=== PATIENT | female | born 1990 | race Caucasian/White ===

== ENCOUNTER 2016-05-24 10:26 | Emergency (ER) | payer MEDICAID ==
[2016-05-24] MEDS ORDERED: DEXAMETHASONE 10 MG/ML VIAL PO STA (11:47)
[2016-05-24] MEDS ORDERED: DEXAMETHASONE 10 MG/ML VIAL ONE (11:47)
[2016-05-24] MEDS ORDERED: CHERRY SYRUP 10 ML UDC PO ONE (11:48)
== END 2016-05-24 11:54 | disposition home or self-care (01) ==
DX: K04.7 Periapical abscess without sinus (principal); L50.9 Urticaria, unspecified; D66 Hereditary factor VIII deficiency; J45.909 Unspecified asthma, uncomplicated; F17.200 Nicotine dependence, unspecified, uncomplicated
CPT/HCPCS: 99283; A9270

== ENCOUNTER 2016-06-01 | Emergency (ER) | payer MEDICAID ==
--- NOTE | 2016-06-01 11:17 | ED Physician Documentation ---
PD HPI HEENT - Stated complaint Stated Complaint: ALLERGIC RX/TO MED - Chief complaint Chief Complaint: Heent - History obtained from History obtained from: Patient - History of Present Illness Timing - details: Gradual onset, Waxing and waning (she had had some itching rash on chest but it worsened with recent Doxycycline so stopped it after 3 days. It was for dental infection, which improved some but is back again with swelling and pain. Went to [facility] today presuming would get extraction, but they wanted her on abx more. 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 some itchy rash on chest.) Recently seen: Emergency Dept (recent Rx for Doxycycline. Had slight rash, so only took it for 3 days. Swelling and pain worsening again. Went to [facility] and they want her on abx more before doing anything.) Review of Systems Constitutional: denies: Fever Nose: denies: Rhinorrhea / runny nose, Congestion Throat: reports: Dental pain / toothache. 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 - Present Medications Home Medications: Ambulatory Orders Medication Instructions Recorded Confirmed Albuterol [Albuterol] 1 puffs INH BID 11/26/15 01/06/16 Antihemoph.fviii,Hek B-Delete 2,000 units SQ PRN 01/29/16 [Nuwiq] Doxycycline Hyclate 100 mg PO BID #20 tablet 05/24/16 Dexamethasone [Decadron] 4 mg PO DAILY #5 tablet 06/01/16 Hydrocodone/Acetaminophen [[place] 1 each PO Q6H PRN #20 tablet 06/01/16 5-325 Tablet] Sulfamethoxazole/Trimethoprim 1 each PO BID #14 tablet 06/01/16 [Bactrim Ds Tablet] - Allergies Allergies/Adverse Reactions: Allergies Allergy/AdvReac Type Severity Reaction Status Date / Time amoxicillin [Amoxicillin] Allergy Rash Verified 12/10/15 10:09 benzocaine Allergy Anaphylaxis Verified 12/10/15 10:09 cefaclor [From Ceclor] Allergy Rash Verified 12/10/15 10:09 cephalexin monohydrate * Allergy Rash Verified 12/10/15 10:09 [From Keflex] clindamycin Allergy Rash Verified 12/10/15 10:09 codeine [Codeine] Allergy Rash Verified 12/10/15 10:09 doxycycline Allergy Rash Verified 06/01/16 10:58 ibuprofen Allergy Rash Verified 12/10/15 10:09 morphine Allergy Rash Verified 12/10/15 10:09 NSAIDS (Non-Steroidal Allergy Unknown Verified 12/10/15 10:09 Anti-Inflamma Penicillins Allergy Rash Verified 12/10/15 10:09 tramadol AdvReac Unknown Verified 12/10/15 10:09 - Social History Does the pt smoke?: Yes Smoking Status: Current every day smoker Does the pt drink ETOH?: No Does the pt have substance abuse?: No - Immunizations Immunizations are current?: Yes - POLST Patient has POLST: No PD ED PE NORMAL - Vitals Vital signs reviewed: Yes - General General: Alert and oriented X 3, No acute distress, Well developed/nourished - HEENT HEENT: Moist mucous membranes, Pharynx benign, Other (left lower first molar with erosion to gumline, redness and some swelling but no fluctuance buccal side. Lingual side is normal. ) - Neck Neck: Supple, no meningeal sign, No adenopathy - Cardiac Cardiac: RRR, No murmur - Respiratory Respiratory: Clear bilaterally Results - Vitals Vitals: Vital Signs - 24 hr 06/01/16 10:54 Temperature 37.2 C Heart Rate 113 H Respiratory 18 Rate Blood Pressure 132/70 H O2 Saturation 98 Oxygen O2 Source Room air PD MEDICAL DECISION MAKING - ED course Complexity details: considered differential (still with dental pain and some swelling. Went to [facility] today and they want her on abx more as still seems infected. She had had some itching rash of chest prior to meds but then got worse when started Doxy most recent Rx so only took 3 days of it. Out of pain meds too. She had taken dose of Factor 8 this morning in prep for having dental extraction. ), d/w patient Departure - Departure Disposition: 01 Home, Self Care Clinical Impression: Dental abscess Condition: Stable Record reviewed to determine appropriate education?: Yes Instructions: ED Tooth Pain Follow-Up: [facility] [Provider Group] [facility] [Provider Group] Prescriptions: Sulfamethoxazole/Trimethoprim [Bactrim Ds Tablet] 1 each PO BID #14 tablet Dexamethasone [Decadron] 4 mg PO DAILY #5 tablet Hydrocodone/Acetaminophen [[place] 5-325 Tablet] 1 each PO Q6H PRN #20 tablet PRN Reason: Pain Comments: [phone] Dental Clinic, or [facility] clinic regarding dental extraction. Otherwise can look up oral surgeons in [facility] or such to see if they would cover it with your insurance. Bactrim antibiotic for the infection. Tylenol for pain. Hydrocodone for worse pain. Can try Decadron steroid for swelling. Discharge Date/Time: 06/01/16 11:44
== END 2016-06-01 11:44 | disposition home or self-care (01) ==
CPT/HCPCS: 99283

== ENCOUNTER 2016-07-14 21:06 | Emergency (ER) | payer MEDICAID ==
[2016-07-14] MEDS ORDERED: SODIUM CHLORIDE 0.9% 1,000 ML IV ONE (21:15)
[2016-07-15] MEDS ORDERED: HYDROcod/ACET 5/325 Prepack 6 PO STA (00:34)
[2016-07-15] MEDS ORDERED: ONDANSETRON 4 MG/2 ML VIAL IVP STA (00:34)
[2016-07-15] MEDS ORDERED: MORPHINE 2 MG/ML SYRINGE IVP STA (00:34)
[2016-07-15] MEDS ORDERED: ONDANSETRON ODT 4 MG Prepack 2 TL STA (00:35)
[2016-07-15] MEDS ORDERED: ONDANSETRON 4 MG/2 ML VIAL ONE (00:46)
[2016-07-15] MEDS ORDERED: HYDROcod/ACET 5/325 Prepack 6 PO ONE (00:47)
[2016-07-15] MEDS ORDERED: MORPHINE 2 MG/ML SYRINGE ONE (00:47)
[2016-07-15] MEDS ORDERED: ONDANSETRON ODT 4 MG Prepack 2 TL ONE (00:47)
== END 2016-07-15 01:12 | disposition home or self-care (01) ==
DX: O03.6 Delayed or excessive hemorrhage following complete or unspecified spontaneous abortion (principal); R10.2 Pelvic and perineal pain

== ENCOUNTER 2016-08-11 19:47 | Emergency (ER) | payer MEDICAID ==
[2016-08-11] MEDS ORDERED: MORPHINE 2 MG/ML SYRINGE ONE (21:16)
[2016-08-11] MEDS ORDERED: MORPHINE 2 MG/ML SYRINGE IVP STA (21:25)
[2016-08-11] MEDS ORDERED: ACETAMINOPHEN 325 MG TABLET PO STA (22:17)
== END 2016-08-11 22:25 | disposition left against medical advice (07) ==
DX: N93.9 Abnormal uterine and vaginal bleeding, unspecified (principal); D66 Hereditary factor VIII deficiency; D25.1 Intramural leiomyoma of uterus; J45.909 Unspecified asthma, uncomplicated; F17.200 Nicotine dependence, unspecified, uncomplicated; Z79.51 Long term (current) use of inhaled steroids; Z79.52 Long term (current) use of systemic steroids; Z79.891 Long term (current) use of opiate analgesic; Z79.2 Long term (current) use of antibiotics; Z79.899 Other long term (current) drug therapy; Z87.59 Personal history of other complications of pregnancy, childbirth and the puerperium

== ENCOUNTER 2017-04-23 19:15 | Emergency (ER) | payer MEDICAID ==
[2017-04-23] MEDS ORDERED: SODIUM CHLORIDE 0.9% 1,000 ML IV ONE (19:38)
[2017-04-23] MEDS ORDERED: ONDANSETRON 4 MG/2 ML VIAL IVP STA (19:38)
[2017-04-23] MEDS ORDERED: HYDROmorphone 1 MG/ML SYRINGE IVP STA (19:38)
--- NOTE | 2017-04-23 19:42 | ED Physician Documentation ---
PD HPI NVD - Stated complaint Stated Complaint: VOMITING - Chief complaint Chief Complaint: Abd Pain - History obtained from History obtained from: Patient - History of Present Illness Timing - onset: Other (Her whole family has been sick with vomiting and diarrheal illness. She became sick about a week ago and has had persistent vomiting and diarrhea ever since with right lower chest pain and coughing as well. She is on her menses. She says she has not been able to keep down anything in the last week even water.) Review of Systems Ten Systems: 10 systems reviewed and negative Constitutional: reports: Chills, Fatigue. denies: Fever Throat: denies: Sore throat Respiratory: reports: Dyspnea, Cough. denies: Wheezing GI: reports: Nausea, Vomiting, Diarrhea. 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 - Present Medications Home Medications: Ambulatory Orders Medication Instructions Recorded Confirmed Albuterol [Albuterol] 1 puffs INH BID 11/26/15 04/23/17 Divalproex ER [Depakote ER] 250 mg PO BID 04/23/17 04/23/17 Loperamide [Imodium] 2 mg PO QID PRN #10 capsule 04/23/17 Ondansetron HCl [Zofran] 4 mg PO Q6H PRN #10 tablet 04/23/17 - Allergies Allergies/Adverse Reactions: Allergies Allergy/AdvReac Type Severity Reaction Status Date / Time amoxicillin [Amoxicillin] Allergy Rash Verified 12/10/15 10:09 benzocaine Allergy Anaphylaxis Verified 12/10/15 10:09 cefaclor [From Ceclor] Allergy Rash Verified 12/10/15 10:09 cephalexin monohydrate * Allergy Rash Verified 12/10/15 10:09 [From Keflex] clindamycin Allergy Rash Verified 12/10/15 10:09 codeine [Codeine] Allergy Rash Verified 12/10/15 10:09 doxycycline Allergy Rash Verified 06/01/16 10:58 ibuprofen Allergy Rash Verified 12/10/15 10:09 morphine Allergy Rash Verified 12/10/15 10:09 NSAIDS (Non-Steroidal Allergy Unknown Verified 12/10/15 10:09 Anti-Inflamma Penicillins Allergy Rash Verified 12/10/15 10:09 tramadol AdvReac Unknown Verified 12/10/15 10:09 - Social History Does the pt smoke?: Yes Smoking Status: Current every day smoker Does the pt drink ETOH?: No Does the pt have substance abuse?: No - Immunizations Immunizations are current?: Yes - POLST Patient has POLST: No PD ED PE NORMAL - Vitals Vital signs reviewed: Yes - General General: Alert and oriented X 3, No acute distress - HEENT HEENT: PERRL, EOMI, Ears normal, Moist mucous membranes - Neck Neck: Supple, no meningeal sign, No bony TTP - Cardiac Cardiac: RRR (Tachycardic), No murmur - Respiratory Respiratory: No respiratory distress, Other (Crackles at the right base) - Abdomen Abdomen: Soft, Non tender - Back Back: No CVA TTP, No spinal TTP - Derm Derm: Normal color, Warm and dry - Extremities Extremities: No edema, No calf tenderness / cord - Neuro Neuro: Alert and oriented X 3, Normal speech - Psych Psych: Normal mood, Normal affect Results - Vitals Vitals: Vital Signs - 24 hr 04/23/17 19:26 Temperature 36.7 C Heart Rate 108 H Respiratory 18 Rate Blood Pressure 122/87 H O2 Saturation 99 Oxygen O2 Source Room air - Labs Labs: Laboratory Tests 04/23/17 04/23/17 04/23/17 19:39 19:43 19:43 WBC 3.5 L RBC 5.36 Hgb 16.1 H Hct 47.6 H MCV 88.8 MCH 30.1 MCHC 33.9 RDW 13.5 Plt Count 140 MPV 7.7 L Neut # Not Reportable Lymph # Not Reportable [place] # Not Reportable Eos # Not Reportable Baso # Not Reportable Absolute Nucleated RBC Not Reportable Total Counted 100 Band Neuts % (Manual) 3 Reactive Lymphs % (Man) 19 Abnorm Lymph % (Manual) 0 Nucleated RBC % Not Reportable Neutrophils # (Manual) 1.5 Lymphocytes # (Manual) 2.0 Monocytes # (Manual) 0.0 Eosinophils # (Manual) 0.0 Basophils # (Manual) 0.0 Differential Comment MANUAL DIFFERENTIAL Manual Slide Review Indicated Platelet Estimate NORMAL (130-450,000) Platelet Morphology NORMAL APPEARANCE RBC Morph Micro Appear NORMAL APPEARANCE Sodium 138 Potassium 4.2 Chloride 97 L Carbon Dioxide 26 Anion Gap 15.0 H BUN 14 Creatinine 0.7 Estimated GFR (MDRD) 100 Glucose 96 Calcium 9.1 Total Bilirubin 0.6 AST 67 H ALT 64 H Alkaline Phosphatase 45 Total Protein 8.3 H Albumin 4.9 Globulin 3.4 Albumin/Globulin Ratio 1.4 Lipase 19 L Urine Color YELLOW Urine Clarity CLEAR Urine pH 6.0 Ur Specific [place] >=1.030 H Urine Protein 30 H Urine Glucose (UA) NEGATIVE Urine Ketones 40 H Urine Occult Blood NEGATIVE Urine Nitrite NEGATIVE Urine Bilirubin NEGATIVE Urine Urobilinogen 0.2 (NORMAL) Ur Leukocyte Esterase NEGATIVE Urine RBC None Seen Urine WBC 0-3 Ur Squamous Epith Cells FEW Squamous Urine Bacteria None Seen Urine Casts 0-2 Hyaline Casts Urine Mucus Marked Strands Ur Microscopic Review INDICATED Urine Culture Comments NOT INDICATED Urine HCG, Qual NEGATIVE Last Dose Date UNKNOWN Last Dose Time UNKNOWN Valproic Acid 58.3 Infectious [place] Assay 04/23/17 19:43 WBC RBC Hgb Hct MCV MCH MCHC RDW Plt Count MPV Neut # Lymph # [place] # Eos # Baso # Absolute Nucleated RBC Total Counted Band Neuts % (Manual) Reactive Lymphs % (Man) Abnorm Lymph % (Manual) Nucleated RBC % Neutrophils # (Manual) Lymphocytes # (Manual) Monocytes # (Manual) Eosinophils # (Manual) Basophils # (Manual) Differential Comment Manual Slide Review Platelet Estimate Platelet Morphology RBC Morph Micro Appear Sodium Potassium Chloride Carbon Dioxide Anion Gap BUN Creatinine Estimated GFR (MDRD) Glucose Calcium Total Bilirubin AST ALT Alkaline Phosphatase Total Protein Albumin Globulin Albumin/Globulin Ratio Lipase Urine Color Urine Clarity Urine pH Ur Specific [place] Urine Protein Urine Glucose (UA) Urine Ketones Urine Occult Blood Urine Nitrite Urine Bilirubin Urine Urobilinogen Ur Leukocyte Esterase Urine RBC Urine WBC Ur Squamous Epith Cells Urine Bacteria Urine Casts Urine Mucus Ur Microscopic Review Urine Culture Comments Urine HCG, Qual Last Dose Date Last Dose Time Valproic Acid Infectious [place] Assay NEGATIVE PD MEDICAL DECISION MAKING - ED course ED course: 18-year-old woman with vomiting, diarrhea, seems like a viral illness and the leukopenia combined with reactive lymphocytes suggest the same, she was mono negative though. She improved well with symptomatic treatment here including IV fluids, antiemetics and pain medication. She passed an oral challenge and remained well-appearing. Despite the abnormal examination her chest x-ray was negative and given the overall viral appearance this will be treated conservatively. Departure - Departure Disposition: 01 Home, Self Care Clinical Impression: Gastroenteritis, Viral syndrome Condition: Good Record reviewed to determine appropriate education?: Yes Instructions: ED Gastroenteritis Viral Prescriptions: Loperamide [Imodium] 2 mg PO QID PRN #10 capsule PRN Reason: Diarrhea Ondansetron HCl [Zofran] 4 mg PO Q6H PRN #10 tablet PRN Reason: Nausea / Vomiting Comments: Call your doctor to arrange a follow-up appointment, make the next available appointment. In the interim, return anytime if worse or if new symptoms develop. Your blood pressure was elevated today on check into the emergency department. This does not mean that you have hypertension, it is a common phenomenon to come to the emergency department and have elevated blood pressure. I recommend that you see your primary care physician within the week to have it rechecked when you are feeling better.
[2017-04-23 19:49] LABS: BASOPHILS % (AUTO) 0.6 %; EOSINOPHILS % (AUTO) 0.1 %; HGB - HEMOGLOBIN 16.1 g/dL (12.0-16.0); LYMPHOCYTES % (AUTO) 44.1 %; MEAN CORPUSCULAR HEMOGLOBIN 30.1 pg (27.0-31.0); MEAN CORPUSCULAR HGB CONC 33.9 g/dL (32.0-36.0); MEAN CORPUSCULAR VOLUME 88.8 fL (81.0-99.0); MEAN PLATELET VOLUME 7.7 fL (7.9-10.8); MONOCYTES % (AUTO) 14.4 %; NEUTROPHILS % (AUTO) 40.8 %; PLT - PLATELET COUNT 140 10^3/uL (130-450); RED BLOOD COUNT 5.36 10^6/uL (4.20-5.40); RED CELL DISTRIBUTION WIDTH 13.5 % (12.0-15.0); WHITE BLOOD COUNT 3.5 x10^3/uL (4.8-10.8)
[2017-04-23 20:00] LABS: ABNORMAL LYMPHS % (MANUAL) 0 %
[2017-04-23 20:03] LABS: ALBUMIN 4.9 g/dL (3.2-5.5); ALBUMIN/GLOBULIN RATIO 1.4 (1.0-2.2); ALKALINE PHOSPHATASE 45 IU/L (42-121); ALT ALANINE AMINOTRANSFERASE 64 IU/L (10-60); AST ASPARTATE AMINOTRANSFERASE 67 IU/L (10-42); BILIRUBIN,TOTAL 0.6 mg/dL (0.2-1.0); BUN - BLOOD UREA NITROGEN 14 mg/dL (6-20); CALCIUM 9.1 mg/dL (8.5-10.3); CARBON DIOXIDE - CO2 26 mmol/L (21-32); CHLORIDE 97 mmol/L (101-111); CREATININE 0.7 mg/dL (0.4-1.0); GFR - MDRD 100 (>89); GLUCOSE 96 mg/dL (70-100); LIPASE 19 U/L (22-51); SODIUM 138 mmol/L (135-145); TOTAL PROTEIN 8.3 g/dL (6.7-8.2); VALPROIC ACID (DEPAKOTE) 58.3 ug/mL
[2017-04-23 20:04] LABS: BILIRUBIN,URINE NEGATIVE (NEGATIVE); GLUCOSE, URINE (UA) NEGATIVE (NEGATIVE); KETONES,URINE (UA) 40 mg/dL (NEGATIVE); LEUKOCYTE ESTERASE, URINE NEGATIVE (NEGATIVE); NITRITE,URINE NEGATIVE (NEGATIVE); OCCULT BLOOD,URINE NEGATIVE (NEGATIVE); PROTEIN,URINE 30 mg/dL (NEGATIVE); UROBILINOGEN,URINE 0.2 (NORMAL) E.U./dL (NORMAL)
[2017-04-23 20:05] LABS: CLARITY,URINE CLEAR (CLEAR)
[2017-04-23 20:06] LABS: HCG UR QUAL NEGATIVE
[2017-04-23 20:14] LABS: BACTERIA,URINE None Seen /HPF (None Seen); CASTS, URINE 0-2 Hyaline Casts /LPF; MUCUS,URINE Marked Strands; RBC,URINE None Seen /HPF (0-5); SQUAMOUS EPITHELIAL CELL,UR FEW Squamous (<= Few)
--- NOTE | 2017-04-23 20:16 | XRAY Report ---
EXAM: CHEST RADIOGRAPHY EXAM DATE: 04/23/2017 08:07 PM. CLINICAL HISTORY: Cough. Abnormal breath sounds right middle lobe. COMPARISON: 10/24/2013. TECHNIQUE: 2 views. FINDINGS: Lungs/Pleura: Normal volumes. Stable 4 mm calcified granuloma in the right middle lobe. No focal cons olidation or evidence of edema. No pleural effusion or pneumothorax. Mediastinum: Normal cardiomediastinal contour. Other: Unchanged minimal left convex curvature of the midthoracic spine. IMPRESSION: No acute cardiopulmonary abnormality. [facility] Referring Provider Line: [phone] SITE ID: [id number]
[2017-04-23 20:27] LABS: BAND NEUTROPHILS % (MANUAL) 3 %; DIFFERENTIAL COMMENT MANUAL DIFFERENTIAL; LYMPHOCYTES % (MANUAL) 38 %; NEUTROPHILS # (MANUAL) 1.5 10^3/uL (1.5-6.6); NEUTROPHILS % (MANUAL) 40 %; PLATELET ESTIMATE, MANUAL NORMAL (130-450,000) (NORMAL); PLATELET MORPHOLOGY NORMAL APPEARANCE (NORMAL); RBC MORPHOLOGY (MULTIPLE) NORMAL APPEARANCE (NORMAL)
[2017-04-23] MEDS ORDERED: DIVALPROEX ER 250 MG TABLET PO STA (20:28)
[2017-04-23] MEDS ORDERED: HYDROcod/ACET 5/325 Prepack 6 PO STA (21:18)
[2017-04-23] MEDS ORDERED: ONDANSETRON ODT 4 MG Prepack 2 TL STA (21:19)
[2017-04-23 21:27] VITALS: BP 113/79
== END 2017-04-23 21:44 | disposition home or self-care (01) ==
LOC: ED 19:15
DX: A08.4 Viral intestinal infection, unspecified (principal); R03.0 Elevated blood-pressure reading, without diagnosis of hypertension; F17.200 Nicotine dependence, unspecified, uncomplicated
CPT/HCPCS: 36415; 71046; 80053; 80164; 81001; 81025; 83690; 85025; 86308; 96361; 96374; 99283; A9270; J1170; 81003; 87086

== ENCOUNTER 2017-04-25 14:24 | Outpatient (CLI) | payer MEDICAID ==
[2017-04-25 19:32] LABS: BASOPHILS % (AUTO) 0.5 %; EOSINOPHILS % (AUTO) 0.1 %; HGB - HEMOGLOBIN 13.4 g/dL (12.0-16.0); LYMPHOCYTES # (AUTO) 1.7 10^3/uL (1.5-3.5); LYMPHOCYTES % (AUTO) 35.5 %; MEAN CORPUSCULAR HEMOGLOBIN 30.3 pg (27.0-31.0); MEAN CORPUSCULAR HGB CONC 33.7 g/dL (32.0-36.0); MEAN CORPUSCULAR VOLUME 89.9 fL (81.0-99.0); MEAN PLATELET VOLUME 8.4 fL (7.9-10.8); MONOCYTES # (AUTO) 0.4 10^3/uL (0.0-1.0); MONOCYTES % (AUTO) 8.5 %; NEUTROPHILS # (AUTO) 2.6 10^3/uL (1.5-6.6); NEUTROPHILS % (AUTO) 55.4 %; PLT - PLATELET COUNT 123 10^3/uL (130-450); RED BLOOD COUNT 4.41 10^6/uL (4.20-5.40); RED CELL DISTRIBUTION WIDTH 13.9 % (12.0-15.0); WHITE BLOOD COUNT 4.8 x10^3/uL (4.8-10.8)
[2017-04-25 20:13] LABS: ALBUMIN 4.2 g/dL (3.2-5.5); ALBUMIN/GLOBULIN RATIO 1.4 (1.0-2.2); ALKALINE PHOSPHATASE 34 IU/L (42-121); ALT ALANINE AMINOTRANSFERASE 49 IU/L (10-60); AST ASPARTATE AMINOTRANSFERASE 51 IU/L (10-42); BILIRUBIN,TOTAL 0.3 mg/dL (0.2-1.0); BUN - BLOOD UREA NITROGEN 7 mg/dL (6-20); CALCIUM 8.3 mg/dL (8.5-10.3); CARBON DIOXIDE - CO2 25 mmol/L (21-32); CHLORIDE 107 mmol/L (101-111); CREATININE 0.6 mg/dL (0.4-1.0); GFR - MDRD 119 (>89); GLUCOSE 90 mg/dL (70-100); SODIUM 140 mmol/L (135-145); TOTAL PROTEIN 7.2 g/dL (6.7-8.2); VALPROIC ACID (DEPAKOTE) 29.3 ug/mL
== END 2017-04-25 14:25 | disposition home or self-care (01) ==
LOC: LAB.F 14:24
PROVIDERS: ATTEND Nurse Practitioner Family
DX: F31.9 Bipolar disorder, unspecified (principal)
CPT/HCPCS: 36415; 80053; 80164; 85025

== ENCOUNTER 2017-07-03 19:57 | Emergency (ER) | payer MEDICAID ==
[2017-07-03 20:07] VITALS: BP 138/95
[2017-07-03 22:57] LABS: BILIRUBIN,URINE NEGATIVE (NEGATIVE); GLUCOSE, URINE (UA) NEGATIVE (NEGATIVE); KETONES,URINE (UA) NEGATIVE (NEGATIVE); LEUKOCYTE ESTERASE, URINE NEGATIVE (NEGATIVE); NITRITE,URINE NEGATIVE (NEGATIVE); OCCULT BLOOD,URINE LARGE (NEGATIVE); PROTEIN,URINE NEGATIVE (NEGATIVE); UROBILINOGEN,URINE 0.2 (NORMAL) E.U./dL (NORMAL)
[2017-07-03 22:58] LABS: CLARITY,URINE CLEAR (CLEAR)
[2017-07-03 22:58] LABS: HCG UR QUAL NEGATIVE
[2017-07-03 23:04] LABS: BACTERIA,URINE Few /HPF (None Seen); MUCUS,URINE Moderate Strands; RBC,URINE 0-5 /HPF (0-5); SQUAMOUS EPITHELIAL CELL,UR MOD Squamous (<= Few)
--- NOTE | 2017-07-04 02:17 | ED Physician Documentation ---
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 Patient states that she is 8 weeks and she has had pain for four days and bleeding worse today with multiple pads. Patient had presented to the emergency department before with similar complaints. At that time patient was found to actually not be , and pulled out her IV when she was told she was not getting narcotic pain medication. Review of Systems Constitutional: denies: Fever, Chills Eyes: reports: Reviewed and negative Ears: reports: Reviewed and negative Nose: reports: Reviewed and negative Throat: reports: Reviewed and negative GI: reports: Abdominal Pain : reports: Vaginal bleeding. 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 - Present Medications Home Medications: Ambulatory Orders Medication Instructions Recorded Confirmed Albuterol [Albuterol] 1 puffs INH BID 11/26/15 04/23/17 - Allergies Allergies/Adverse Reactions: Allergies Allergy/AdvReac Type Severity Reaction Status Date / Time amoxicillin [Amoxicillin] Allergy Rash Verified 12/10/15 10:09 benzocaine Allergy Anaphylaxis Verified 12/10/15 10:09 cefaclor [From Ceclor] Allergy Rash Verified 12/10/15 10:09 cephalexin monohydrate * Allergy Rash Verified 12/10/15 10:09 [From Keflex] clindamycin Allergy Rash Verified 12/10/15 10:09 codeine [Codeine] Allergy Rash Verified 12/10/15 10:09 doxycycline Allergy Rash Verified 06/01/16 10:58 ibuprofen Allergy Rash Verified 12/10/15 10:09 ketorolac [From Toradol] Allergy Rash Verified 07/03/17 20:08 morphine Allergy Rash Verified 12/10/15 10:09 NSAIDS (Non-Steroidal Allergy Unknown Verified 12/10/15 10:09 Anti-Inflamma Penicillins Allergy Rash Verified 12/10/15 10:09 - Social History Does the pt smoke?: Yes Smoking Status: Current every day smoker Does the pt drink ETOH?: No Does the pt have substance abuse?: No - Immunizations Immunizations are current?: Yes - POLST Patient has POLST: No PD ED PE NORMAL - General General: Alert and oriented X 3 - HEENT HEENT: Atraumatic - Cardiac Cardiac: RRR - Respiratory Respiratory: No respiratory distress - Derm Derm: Normal color, No rash - Extremities Extremities: No deformity - Neuro Neuro: Alert and oriented X 3, No motor deficit, Normal speech PD ED PE EXPANDED - General General: Alert, In Pain - Abdomen Abdomen: Tender to palpation, LLQ. No: Rebound, Guarding - Psych Psych: Tearful, Agitated Results - Vitals Vitals: Vital Signs - 24 hr 07/03/17 07/03/17 20:01 23:46 Temperature 36.7 C Heart Rate 76 Respiratory 18 17 Rate Blood Pressure 138/95 H O2 Saturation 100 Oxygen O2 Source Room air - Labs Labs: Laboratory Tests 07/03/17 07/03/17 21:20 22:48 Urine Color YELLOW Urine Clarity CLEAR Urine pH 6.0 Ur Specific [place] 1.025 1.025 Urine Protein NEGATIVE Urine Glucose (UA) NEGATIVE Urine Ketones NEGATIVE Urine Occult Blood LARGE H Urine Nitrite NEGATIVE Urine Bilirubin NEGATIVE Urine Urobilinogen 0.2 (NORMAL) Ur Leukocyte Esterase NEGATIVE Urine RBC 0-5 Urine WBC 0-3 Ur Squamous Epith Cells MOD Squamous H Urine Bacteria Few Urine Mucus Moderate Strands Ur Microscopic Review INDICATED Urine Culture Comments NOT INDICATED Urine HCG, Qual NEGATIVE PD MEDICAL DECISION MAKING - ED course Complexity details: reviewed old records, reviewed results, re-evaluated patient , considered differential, d/w patient ED course: Patient was seen and examined at bedside. Urine was collected. When patient's urine came back patient was found to not be . Patient was told that she was not , and she reported that she needed a minute and asked to be alone. When I came back in to talk to the patient she stated she wanted to leave and was going to another hospital where they would take care of her. Patient walked out of the ER. Departure - Departure Disposition: 07 Against Medical Advice Clinical Impression: Vaginal bleeding problems Condition: Stable Discharge Date/Time: 07/03/17 23:48
== END 2017-07-03 23:48 | disposition left against medical advice (07) ==
LOC: ED 19:57
DX: O20.9 Hemorrhage in early pregnancy, unspecified (principal); Z53.29 Procedure and treatment not carried out because of patient's decision for other reasons; O99.331 Smoking (tobacco) complicating pregnancy, first trimester; O99.511 Diseases of the respiratory system complicating pregnancy, first trimester; J45.909 Unspecified asthma, uncomplicated; Z3A.08 8 weeks gestation of pregnancy; Z86.2 Personal history of diseases of the blood and blood-forming organs and certain disorders involving the immune mechanism
CPT/HCPCS: 81001; 81003; 81025; 87086; 99282

== ENCOUNTER 2018-03-31 15:15 | Emergency (ER) | payer MEDICAID ==
--- NOTE | 2018-03-31 15:56 | ED Physician Documentation ---
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 She struck her forehead and did not have any loss of consciousness. She did have one episode of vomiting. She comes to the emergency department today feeling scattered and having the sensation that she may be . She is gone to the [employer] and bought a test and this was negative. She has an appointment to have a tubal ligation done on Srinivasa donovan at the [facility]. She has a prior history of pseudocyesis. She is stating that she does recall this prior episode and feels that this is similar and she does not understand why she is feeling this way. She is complaining of severe back pain that is coming in waves. Review of Systems Constitutional: denies: Fever, Chills, Myalgias, Fatigue Eyes: denies: Decreased vision, Photophobia Ears: denies: Ear pain Nose: denies: Rhinorrhea / runny nose, Congestion Throat: denies: Sore throat Cardiac: denies: Chest pain / pressure, Palpitations Respiratory: denies: Dyspnea, Cough GI: reports: Nausea, Vomiting. denies: Abdominal Pain : reports: Frequency. denies: Dysuria Skin: denies: Rash, Lesions Musculoskeletal: reports: Back pain. denies: Neck pain, Extremity pain Neurologic: reports: Confused, Headache, Head injury. 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) Psych: Anxiety, Bipolar disorder - Past Surgical History Past Surgical History: Yes /ELECTRIC GOLF CART REPAIRERS: section - Present Medications Home Medications: Ambulatory Orders Medication Instructions Recorded Confirmed Albuterol 1 puffs INH BID 11/26/15 04/23/17 Tramadol HCl 50 - 100 mg PO Q8HR PRN #14 tablet 03/31/18 - Allergies Allergies/Adverse Reactions: Allergies Allergy/AdvReac Type Severity Reaction Status Date / Time amoxicillin [Amoxicillin] Allergy Rash Verified 12/10/15 10:09 benzocaine Allergy Anaphylaxis Verified 12/10/15 10:09 cefaclor [From Ceclor] Allergy Rash Verified 12/10/15 10:09 cephalexin monohydrate * Allergy Rash Verified 12/10/15 10:09 [From Keflex] clindamycin Allergy Rash Verified 12/10/15 10:09 codeine [Codeine] Allergy Rash Verified 12/10/15 10:09 doxycycline Allergy Rash Verified 06/01/16 10:58 ibuprofen Allergy Rash Verified 12/10/15 10:09 ketorolac [From Toradol] Allergy Rash Verified 07/03/17 20:08 morphine Allergy Rash Verified 12/10/15 10:09 NSAIDS (Non-Steroidal Allergy Unknown Verified 12/10/15 10:09 Anti-Inflamma Penicillins Allergy Rash Verified 12/10/15 10:09 - Social History Does the pt smoke?: Yes Smoking Status: Current every day smoker Does the pt drink ETOH?: No Does the pt have substance abuse?: No - Immunizations Immunizations are current?: Yes - POLST Patient has POLST: No PD ED PE NORMAL - Vitals Vital signs reviewed: Yes (tachy and hypertensive ) - General General: Alert and oriented X 3, Well developed/nourished, Other (The patient is crying and clutching her forehead. She is emotional. ) - HEENT HEENT: PERRL, EOMI, Other (There is a forehead hematoma on the right side. The mucous membranes are dry. ) - Neck Neck: Supple, no meningeal sign, No bony TTP - Cardiac Cardiac: No murmur, Other (tachy to 100) - Respiratory Respiratory: No respiratory distress, Clear bilaterally - Abdomen Abdomen: Soft, Non tender - Back Back: No CVA TTP, No spinal TTP - Derm Derm: Normal color, Warm and dry, No rash - Extremities Extremities: No deformity, Normal ROM s pain, No edema - Neuro Neuro: Alert and oriented X 3, trade analyst 2-12 intact, No motor deficit, No sensory deficit, Normal speech Eye Opening: Spontaneous Motor: Obeys Commands Verbal: Oriented GCS Score: 15 - Psych Psych: Other (mood is confused and affect is labile ) Results - Vitals Vitals: Vital Signs - 24 hr 03/31/18 15:19 Temperature 36.8 C Heart Rate 113 H Respiratory 16 Rate Blood Pressure 136/101 H O2 Saturation 99 Oxygen O2 Source Room air - Labs Labs: Laboratory Tests 03/31/18 03/31/18 03/31/18 16:05 16:05 16:05 WBC 5.8 RBC 4.42 Hgb 13.7 Hct 40.6 MCV 91.8 MCH 31.0 MCHC 33.7 RDW 12.9 Plt Count 263 MPV 6.7 L Neut # (Auto) 3.5 Lymph # (Auto) 1.9 [place] # (Auto) 0.4 Eos # (Auto) 0.1 Baso # (Auto) 0.1 Absolute Nucleated RBC 0.00 Nucleated RBC % 0.0 Sodium 138 Potassium 3.8 Chloride 105 Carbon Dioxide 26 Anion Gap 7.0 BUN 10 Creatinine 0.7 Estimated GFR (MDRD) 99 Glucose 115 H Calcium 9.2 Total Bilirubin 0.5 AST 17 ALT 12 Alkaline Phosphatase 41 L Total Protein 7.2 Albumin 4.6 Globulin 2.6 Albumin/Globulin Ratio 1.8 Lipase 24 HCG, Quant < 0.60 Urine Color Urine Clarity Urine pH Ur Specific [place] Urine Protein Urine Glucose (UA) Urine Ketones Urine Occult Blood Urine Nitrite Urine Bilirubin Urine Urobilinogen Ur Leukocyte Esterase Urine RBC Urine WBC Ur Squamous Epith Cells Amorphous Sediment Urine Bacteria Urine Mucus Ur Microscopic Review Urine Culture Comments 03/31/18 16:42 WBC RBC Hgb Hct MCV MCH MCHC RDW Plt Count MPV Neut # (Auto) Lymph # (Auto) [place] # (Auto) Eos # (Auto) Baso # (Auto) Absolute Nucleated RBC Nucleated RBC % Sodium Potassium Chloride Carbon Dioxide Anion Gap BUN Creatinine Estimated GFR (MDRD) Glucose Calcium Total Bilirubin AST ALT Alkaline Phosphatase Total Protein Albumin Globulin Albumin/Globulin Ratio Lipase HCG, Quant Urine Color YELLOW Urine Clarity CLEAR Urine pH 7.0 Ur Specific [place] 1.025 Urine Protein NEGATIVE Urine Glucose (UA) NEGATIVE Urine Ketones NEGATIVE Urine Occult Blood LARGE H Urine Nitrite NEGATIVE Urine Bilirubin NEGATIVE Urine Urobilinogen 0.2 (NORMAL) Ur Leukocyte Esterase NEGATIVE Urine RBC TNTC H Urine WBC 0-3 Ur Squamous Epith Cells MOD Squamous H Amorphous Sediment Moderate Urine Bacteria None Seen Urine Mucus Marked Strands Ur Microscopic Review INDICATED Urine Culture Comments NOT INDICATED - Rads (name of study) CT head without Radiology: Prelim report reviewed (Impression: 1. No acute intracranial abnormality is identified. 2 . No acute fracture.), EMP read indepedently, See rad report PD MEDICAL DECISION MAKING - ED course Complexity details: reviewed results, re-evaluated patient, considered differential, d/w patient ED course: 27-year-old hemophilic female with a fall onto her porch in the contusion to her forehead has no evidence of intracranial hemorrhage. Her blood work and urinalysis are unremarkable with the exception of a significant amount of blood in the urine. She does not know of an injury to her back she has developed the severe spasm in her back and here in emerge department she is administered some dexamethasone 10 mg orally and will place her on some tramadol. She is requesting a short course as she will be seeing her physician in 3 days. Her serum hCG is negative and she is reassured by this. Departure - Departure Disposition: 01 Home, Self Care Clinical Impression: Spasm of back muscles Contusion of face Qualifiers: Encounter type: initial encounter Qualified Code(s): S00.83XA - Contusion of other part of head, initial encounter Condition: Stable Instructions: ED Spasm Back No Trauma Follow-Up: Karissa Stevenson ARNP [Primary Care Provider] - Prescriptions: Tramadol HCl 50 - 100 mg PO Q8HR PRN #14 tablet PRN Reason: Pain
[2018-03-31 16:15] LABS: BASOPHILS # (AUTO) 0.1 10^3/uL (0.0-0.1); BASOPHILS % (AUTO) 0.9 %; EOSINOPHILS # (AUTO) 0.1 10^3/uL (0.0-0.7); EOSINOPHILS % (AUTO) 0.9 %; HGB - HEMOGLOBIN 13.7 g/dL (12.0-16.0); LYMPHOCYTES # (AUTO) 1.9 10^3/uL (1.5-3.5); LYMPHOCYTES % (AUTO) 32.7 %; MEAN CORPUSCULAR HGB CONC 33.7 g/dL (32.0-36.0); MEAN CORPUSCULAR VOLUME 91.8 fL (81.0-99.0); MEAN PLATELET VOLUME 6.7 fL (7.9-10.8); MONOCYTES # (AUTO) 0.4 10^3/uL (0.0-1.0); MONOCYTES % (AUTO) 6.3 %; NEUTROPHILS # (AUTO) 3.5 10^3/uL (1.5-6.6); NEUTROPHILS % (AUTO) 59.2 %; PLT - PLATELET COUNT 263 10^3/uL (130-450); RED BLOOD COUNT 4.42 10^6/uL (4.20-5.40); RED CELL DISTRIBUTION WIDTH 12.9 % (12.0-15.0); WHITE BLOOD COUNT 5.8 x10^3/uL (4.8-10.8)
[2018-03-31 16:28] LABS: ALBUMIN 4.6 g/dL (3.2-5.5); ALBUMIN/GLOBULIN RATIO 1.8 (1.0-2.2); BILIRUBIN,TOTAL 0.5 mg/dL (0.2-1.0); CALCIUM 9.2 mg/dL (8.5-10.3); CREATININE 0.7 mg/dL (0.4-1.0); TOTAL PROTEIN 7.2 g/dL (6.7-8.2)
[2018-03-31 16:55] LABS: BILIRUBIN,URINE NEGATIVE (NEGATIVE); GLUCOSE, URINE (UA) NEGATIVE (NEGATIVE); KETONES,URINE (UA) NEGATIVE (NEGATIVE); LEUKOCYTE ESTERASE, URINE NEGATIVE (NEGATIVE); NITRITE,URINE NEGATIVE (NEGATIVE); OCCULT BLOOD,URINE LARGE (NEGATIVE); PROTEIN,URINE NEGATIVE (NEGATIVE); UROBILINOGEN,URINE 0.2 (NORMAL) E.U./dL (NORMAL)
--- NOTE | 2018-03-31 16:55 | CT Report ---
Reason: fall, forhead contusion, vomiting, hemophillia Procedure Date: 03/31/2018 Accession Number: [id number] / [id number] Procedure: CT - Head W/O CPT Code: FULL RESULT: EXAM: CT HEAD EXAM DATE: 03/31/2018 04:21 PM. CLINICAL HISTORY: Fall, forehead contusion, vomiting, hemophillia. COMPARISON: 11/27/2015. TECHNIQUE: Multiaxial CT images were obtained from the foramen magnum to the vertex. Reformats: Sagittal and coronal. IV contrast: None. In accordance with CT protocol optimization, one or more of the following dose reduction techniques were utilized for this exam: automated exposure control, adjustment of mA and/or KV based on patient size, or use of iterative reconstructive technique. FINDINGS: Parenchyma: No intraparenchymal hemorrhage. No evidence of mass, midline shift, or CT findings of infarction. Petit-white differentiation is distinct. Extraaxial Spaces: Normal for age. No subdural or epidural collections identified. Ventricles: Normal in size and position. Sinuses and Orbits: Imaged paranasal sinuses, orbits, and mastoids show no significant abnormality. Bones: No evidence of fracture or calvarial defect. Other: Globes and orbits are unremarkable. IMPRESSION: 1. No acute intracranial abnormality is identified 2. No acute fracture.. RADIA
[2018-03-31 16:58] LABS: CLARITY,URINE CLEAR (CLEAR)
[2018-03-31 17:08] LABS: AMORPHOUS SEDIMENT,UR Moderate /LPF; BACTERIA,URINE None Seen /HPF (None Seen); MUCUS,URINE Marked Strands; RBC,URINE TNTC /HPF (0-5); SQUAMOUS EPITHELIAL CELL,UR MOD Squamous (<= Few)
[2018-03-31] MEDS ORDERED: DEXAMETHASONE 10 MG/ML VIAL PO STA (17:44)
[2018-03-31] MEDS ORDERED: traMADol 50 MG TABLET PO STA (18:04)
[2018-03-31 18:16] VITALS: BP 125/92
== END 2018-03-31 18:16 | disposition home or self-care (01) ==
LOC: ED 15:15
DX: M62.830 Muscle spasm of back (principal); S00.83XA Contusion of other part of head, initial encounter; W17.89XA Other fall from one level to another, initial encounter; R31.9 Hematuria, unspecified; D66 Hereditary factor VIII deficiency
CPT/HCPCS: 36415; 70450; 80053; 81001; 83690; 84702; 85025; 99283; A9270; 81003; 87086

== ENCOUNTER 2018-04-11 14:38 | Emergency (ER) | payer MEDICAID ==
[2018-04-11] MEDS ORDERED: LORazepam 0.5 MG TABLET PO STA (15:14)
[2018-04-11] MEDS ORDERED: metroNIDAZOLE 250 MG TABLET PO STA (15:14)
[2018-04-11] MEDS ORDERED: HYDROcod/ACETAM 5/325 MG TABLET PO STA (15:14)
[2018-04-11] MEDS ORDERED: CIPROFLOXACIN 250 MG TABLET PO STA (15:14)
--- NOTE | 2018-04-11 15:18 | ED Physician Documentation ---
PD HPI ABD PAIN - Stated complaint Stated Complaint: ABD PX/BACK PX - Chief complaint Chief Complaint: Abd Pain - History obtained from History obtained from: Patient - History of Present Illness Timing - onset: Other (This is a 27-year-old woman with a lot of anxiety issues who went to the [facility] today for a preop appointment to get her tubes tied because she is high risk because she has hemophilia. She was diagnosed clinically with PID but then had a panic attack in the office and it sounds like she cussed at the doctor there because he was trying to prescribed a cephalosporin which she is allergic to. 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) Psych: Anxiety, Bipolar disorder - Past Surgical History Past Surgical History: Yes /TIME CLOCK REPAIRER: section - Present Medications Home Medications: Ambulatory Orders Medication Instructions Recorded Confirmed Albuterol 1 puffs INH BID 11/26/15 04/23/17 RX: Tramadol HCl 50 - 100 mg PO Q8HR PRN #14 tablet 03/31/18 Ciprofloxacin HCl [Cipro] 500 mg PO BID #20 tablet 04/11/18 Hydrocodone/Acetaminophen 0.5 - 1 each PO Q6H PRN #7 tablet 04/11/18 [Hydrocodon-Acetaminophen 5-325] Metronidazole [Flagyl] 500 mg PO BID #20 tablet 04/11/18 - Allergies Allergies/Adverse Reactions: Allergies Allergy/AdvReac Type Severity Reaction Status Date / Time amoxicillin [Amoxicillin] Allergy Rash Verified 04/11/18 14:51 benzocaine Allergy Anaphylaxis Verified 04/11/18 14:51 cefaclor [From Ceclor] Allergy Rash Verified 04/11/18 14:51 cephalexin monohydrate * Allergy Rash Verified 04/11/18 14:51 [From Keflex] clindamycin Allergy Rash Verified 04/11/18 14:51 codeine [Codeine] Allergy Rash Verified 04/11/18 14:51 doxycycline Allergy Rash Verified 04/11/18 14:51 ibuprofen Allergy Rash Verified 04/11/18 14:51 ketorolac [From Toradol] Allergy Rash Verified 04/11/18 14:51 morphine Allergy Rash Verified 04/11/18 14:51 NSAIDS (Non-Steroidal Allergy Unknown Verified 04/11/18 14:51 Anti-Inflamma Penicillins Allergy Rash Verified 04/11/18 14:51 - Social History Does the pt smoke?: Yes Smoking Status: Current every day smoker Does the pt drink ETOH?: No Does the pt have substance abuse?: No - Immunizations Immunizations are current?: Yes - POLST Patient has POLST: No PD ED PE NORMAL - Vitals Vital signs reviewed: Yes - General General: Alert and oriented X 3, Other (She is anxious and tearful) - Abdomen Abdomen: Normal bowel sounds, Soft, Non tender - Back Back: No CVA TTP - Neuro Neuro: Alert and oriented X 3, Normal speech Results - Vitals Vitals: Vital Signs - 24 hr 04/11/18 04/11/18 14:45 15:55 Temperature 36.2 C L 37.2 C Heart Rate 138 H 120 H Respiratory 20 16 Rate Blood Pressure 150/110 H 149/104 H O2 Saturation 100 100 Oxygen O2 Source Room air PD MEDICAL DECISION MAKING - ED course ED course: This is a 27-year-old woman who presents from the insurance loss assessor office with clinically diagnosed PID needing antibiotic treatment. She has multiple antibiotic allergies making the choice of antibiotics difficult but Cipro and Flagyl should be reasonable given her allergies. Departure - Departure Disposition: 01 Home, Self Care Clinical Impression: PID (acute pelvic inflammatory disease) Condition: Good Record reviewed to determine appropriate education?: Yes Instructions: ED Pelvic Pain [facility]O Prescriptions: Ciprofloxacin HCl [Cipro] 500 mg PO BID #20 tablet Hydrocodone/Acetaminophen [Hydrocodon-Acetaminophen 5-325] 0.5 - 1 each PO Q6H PRN #7 tablet PRN Reason: pain Metronidazole [Flagyl] 500 mg PO BID #20 tablet Comments: Follow-up with a insurance loss assessor office at the [facility] for recheck and tubal ligation. Return for new or worsening symptoms. Your blood pressure was elevated today on check into the emergency department. This does not mean that you have hypertension, it is a common phenomenon to come to the emergency department and have elevated blood pressure. I recommend that you see your primary care physician within the week to have it rechecked when you are feeling better. Discharge Date/Time: 04/11/18 15:56
[2018-04-11 15:56] VITALS: BP 149/104
== END 2018-04-11 15:56 | disposition home or self-care (01) ==
LOC: ED 14:38
DX: N73.9 Female pelvic inflammatory disease, unspecified (principal); R03.0 Elevated blood-pressure reading, without diagnosis of hypertension; F17.200 Nicotine dependence, unspecified, uncomplicated
CPT/HCPCS: 99283; A9270

== ENCOUNTER 2018-05-06 16:24 | Emergency (ER) | payer MEDICAID ==
--- NOTE | 2018-05-06 16:36 | ED Physician Documentation ---
PD HPI UPPER EXT INJURY - Stated complaint Stated Complaint: SHOULD PX - Chief complaint Chief Complaint: Ext Problem - History obtained from History obtained from: Patient - History of Present Illness Location: Right, Shoulder Type of injury: Twist (she lifted heavy bucket out from under a counter and felt a pop and pain in right shoulder. Now hurts with ROM, hong overhead rotation, and has a pop in it at times.) Where injury occurred: Work Timing - onset: Today Timing - details: Abrupt onset, Still present Associated symptoms: No: Weakness, Numbness Similar symptoms before: Has not had sx before Recently seen: Not recently seen Review of Systems Skin: denies: Rash, Lesions Neurologic: denies: Focal weakness, Numbness PD PAST MEDICAL HISTORY - Past Medical History Cardiovascular: None Respiratory: Asthma Endocrine/Autoimmune: None SSIS ARCHITECT: Miscarriage(s) Psych: Anxiety, Bipolar disorder Musculoskeletal: None - Past Surgical History Past Surgical History: Yes /SSIS ARCHITECT: section - Present Medications Home Medications: Ambulatory Orders Medication Instructions Recorded Confirmed Albuterol 1 puffs INH BID 11/26/15 04/16/18 Tramadol HCl 50 - 100 mg PO Q8HR PRN #14 tablet 03/31/18 04/16/18 Ciprofloxacin HCl [Cipro] 500 mg PO BID #20 tablet 04/11/18 04/16/18 Hydrocodone/Acetaminophen 0.5 - 1 each PO Q6H PRN #7 tablet 04/11/18 04/16/18 [Hydrocodon-Acetaminophen 5-325] Metronidazole [Flagyl] 500 mg PO BID #20 tablet 04/11/18 04/16/18 Dexamethasone [Decadron] 4 mg PO DAILY #5 tablet 05/06/18 Tramadol HCl 50 mg PO Q6H PRN #15 tablet 05/06/18 - Allergies Allergies/Adverse Reactions: Allergies Allergy/AdvReac Type Severity Reaction Status Date / Time amoxicillin [Amoxicillin] Allergy Rash Verified 04/11/18 14:51 benzocaine Allergy Anaphylaxis Verified 04/11/18 14:51 cefaclor [From Ceclor] Allergy Rash Verified 04/11/18 14:51 cephalexin monohydrate * Allergy Rash Verified 04/11/18 14:51 [From Keflex] clindamycin Allergy Rash Verified 04/11/18 14:51 codeine [Codeine] Allergy Rash Verified 04/11/18 14:51 doxycycline Allergy Rash Verified 04/11/18 14:51 ibuprofen Allergy Rash Verified 04/11/18 14:51 ketorolac [From Toradol] Allergy Rash Verified 04/11/18 14:51 morphine Allergy Rash Verified 04/11/18 14:51 NSAIDS (Non-Steroidal Allergy Unknown Verified 04/11/18 14:51 Anti-Inflamma Penicillins Allergy Rash Verified 04/11/18 14:51 - Social History Does the pt smoke?: Yes Smoking Status: Current every day smoker Does the pt drink ETOH?: No Does the pt have substance abuse?: No - Immunizations Immunizations are current?: Yes - POLST Patient has POLST: No PD ED PE NORMAL - Vitals Vital signs reviewed: Yes - General General: Alert and oriented X 3, No acute distress, Well developed/nourished - Derm Derm: Normal color, Warm and dry - Extremities Extremities: Other (right shoulder without defromity. She has full ROM of the shoulder. Has some mild popping or clicking at times with overhead rotation. No effusion. ) - Neuro Neuro: Alert and oriented X 3, No motor deficit, No sensory deficit Results - Vitals Vitals: Oxygen O2 Source Room air - Rads (name of study) right shoulder Radiology: Prelim report reviewed, EMP read contemporaneously (no acute bony process) PD MEDICAL DECISION MAKING - ED course Complexity details: considered differential (seems right shoulder strain. She does have full ROM but has some popping at times with overhead rotation. Consider loose rotator cuff or might have some cartilage loose in joint. ), d/w patient Departure - Departure Disposition: 01 Home, Self Care Clinical Impression: Strain of right shoulder Qualifiers: Encounter type: initial encounter Qualified Code(s): S46.911A - Strain of unspecified muscle, fascia and tendon at shoulder and upper arm level, right arm, initial encounter Condition: Stable Record reviewed to determine appropriate education?: Yes Instructions: ED Sprain Shoulder Follow-Up: Karissa Stevenson ARNP [Primary Care Provider] - Prescriptions: Dexamethasone [Decadron] 4 mg PO DAILY #5 tablet Tramadol HCl 50 mg PO Q6H PRN #15 tablet PRN Reason: Pain Comments: Use a sling to support the shoulder muscles periodically for the next several days to week. Okay to have gentle range of motion and use of the arm at times. No heavy lifting, heavy push pull nor overhead reaching for several days to week. Follow-up with your primary care if the shoulder is not doing better over the next several days to week. You could use some anti-inflammatories and since your not able to do NSAIDs, you could use some Decadron steroid anti- inflammatory. Tylenol if needed for pains. Add tramadol if needed for worse pain. Your x-ray appears normal. However this does not show the muscles and tendons through the shoulder nor the cartilage of it, both of which could be injured right now and needs some time for healing. Forms: Activity restrictions Discharge Date/Time: 05/06/18 18:07
[2018-05-06] MEDS: ACETAMINOPHEN 325 MG TABLET PO STA ×2 (17:04→17:05)
--- NOTE | 2018-05-06 17:54 | XRAY Report ---
Reason: pain after lifting heavy object. Procedure Date: 05/06/2018 Accession Number: [id number] / [id number] Procedure: XR - Shoulder 3 View RT CPT Code: FULL RESULT: EXAM: RIGHT SHOULDER RADIOGRAPHY EXAM DATE: 05/06/2018 05:46 PM. CLINICAL HISTORY: Pain after lifting heavy object. COMPARISON: XR SHOULDER COMPLETE 2 VIEW 01/06/2012 5:47 PM. TECHNIQUE: 3 views. FINDINGS: Bones: No acute fracture or bony lesion. Type II acromion. Joints: The glenohumeral and acromioclavicular joints are normal. Soft tissues: Calcified right midlung granulomas. Right ribs are unremarkable. IMPRESSION: 1. No osseous abnormalities. Normal alignment. RADIA
[2018-05-06 18:08] VITALS: BP 122/72
== END 2018-05-06 18:07 | disposition home or self-care (01) ==
LOC: ED 16:24
DX: S46.911A Strain of unspecified muscle, fascia and tendon at shoulder and upper arm level, right arm, initial encounter (principal); X50.1XXA Overexertion from prolonged static or awkward postures, initial encounter; F17.200 Nicotine dependence, unspecified, uncomplicated
CPT/HCPCS: 73030; 99283; A9270

== ENCOUNTER 2018-05-22 14:29 | Emergency (ER) | payer OTHER, MEDICAID ==
[2018-05-22 14:43] LABS: BASOPHILS # (AUTO) 0.1 10^3/uL (0.0-0.1); BASOPHILS % (AUTO) 0.7 %; EOSINOPHILS % (AUTO) 0.6 %; HGB - HEMOGLOBIN 13.8 g/dL (12.0-16.0); LYMPHOCYTES # (AUTO) 2.1 10^3/uL (1.5-3.5); MEAN CORPUSCULAR HEMOGLOBIN 31.2 pg (27.0-31.0); MEAN CORPUSCULAR HGB CONC 34.5 g/dL (32.0-36.0); MEAN CORPUSCULAR VOLUME 90.5 fL (81.0-99.0); MEAN PLATELET VOLUME 6.5 fL (7.9-10.8); MONOCYTES # (AUTO) 0.4 10^3/uL (0.0-1.0); MONOCYTES % (AUTO) 5.2 %; NEUTROPHILS # (AUTO) 5.4 10^3/uL (1.5-6.6); NEUTROPHILS % (AUTO) 67.5 %; PLT - PLATELET COUNT 271 10^3/uL (130-450); RED BLOOD COUNT 4.42 10^6/uL (4.20-5.40); RED CELL DISTRIBUTION WIDTH 13.1 % (12.0-15.0)
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
[2018-05-22 14:51] LABS: CREATININE 0.6 mg/dL (0.4-1.0)
[2018-05-22 15:05] LABS: BILIRUBIN,URINE NEGATIVE (NEGATIVE); GLUCOSE, URINE (UA) NEGATIVE (NEGATIVE); KETONES,URINE (UA) NEGATIVE (NEGATIVE); LEUKOCYTE ESTERASE, URINE NEGATIVE (NEGATIVE); NITRITE,URINE NEGATIVE (NEGATIVE); OCCULT BLOOD,URINE LARGE (NEGATIVE); PROTEIN,URINE NEGATIVE (NEGATIVE); UROBILINOGEN,URINE 0.2 (NORMAL) E.U./dL (NORMAL)
[2018-05-22 15:07] LABS: CLARITY,URINE CLEAR (CLEAR); HCG UR QUAL NEGATIVE
[2018-05-22 15:16] LABS: BACTERIA,URINE None Seen /HPF (None Seen); SQUAMOUS EPITHELIAL CELL,UR MANY Squamous (<= Few)
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
[2018-05-22] MEDS: oxyCODONE 5 MG TABLET PO STA (16:26)
[2018-05-22] MEDS: LORazepam 2 MG/ML VIAL IVP STA (16:43)
[2018-05-22 16:47] VITALS: BP 127/80
== END 2018-05-22 17:15 | disposition home or self-care (01) ==
LOC: EDUNIT# → ED 14:29
DX: S09.90XA Unspecified injury of head, initial encounter (principal); V49.50XA Passenger injured in collision with unspecified motor vehicles in traffic accident, initial encounter; D66 Hereditary factor VIII deficiency; F17.200 Nicotine dependence, unspecified, uncomplicated
CPT/HCPCS: 36415; 70450; 72125; 80048; 81001; 81003; 81025; 85025; 87086; 96374; 99283

== ENCOUNTER 2018-06-14 18:39 | Emergency (ER) | payer OTHER, MEDICAID ==
[2018-06-14] MEDS ORDERED: HYDROcod/ACETAM 5/325 MG TABLET PO STA (19:43)
[2018-06-14] MEDS ORDERED: ONDANSETRON ODT 4 MG TABLET TL STA (19:43)
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
[2018-06-14] MEDS ORDERED: HYDROcod/ACET 5/325 Prepack 4 PO STA (20:33)
[2018-06-14] MEDS ORDERED: ONDANSETRON ODT 4 MG Prepack 2 TL STA (20:33)
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
[2018-06-14 20:54] VITALS: BP 130/80
== END 2018-06-14 20:52 | disposition home or self-care (01) ==
LOC: ED 18:39
DX: S46.911A Strain of unspecified muscle, fascia and tendon at shoulder and upper arm level, right arm, initial encounter (principal); S69.91XA Unspecified injury of right wrist, hand and finger(s), initial encounter; V49.9XXA Car occupant (driver) (passenger) injured in unspecified traffic accident, initial encounter; D66 Hereditary factor VIII deficiency; F17.200 Nicotine dependence, unspecified, uncomplicated
CPT/HCPCS: 73030; 73130; 99283; A9270; Q0162

== ENCOUNTER 2018-07-11 14:10 | Emergency (ER) | payer MEDICAID ==
--- NOTE | 2018-07-11 15:56 | ED Physician Documentation ---
PD HPI URI - Stated complaint Stated Complaint: FLU SX - Chief complaint Chief Complaint: Resp - History obtained from History obtained from: Patient - History of Present Illness Timing - onset: How many weeks ago (several) Timing duration: Weeks (several) Timing details: Abrupt onset, Still present Associated symptoms: Fever, Productive cough (which has persisted), NVD (worst the first week and is mostly improved) Similar symptoms before: Has not had sx before Recently seen: Not recently seen Review of Systems Constitutional: reports: Fever, Chills, Myalgias Nose: reports: Congestion. 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) Psych: Anxiety, Bipolar disorder Musculoskeletal: None - Past Surgical History Past Surgical History: Yes /CIVIL RIGHTS INVESTIGATOR: section - Present Medications Home Medications: Ambulatory Orders Medication Instructions Recorded Confirmed Albuterol 1 puffs INH BID 11/26/15 04/16/18 Tramadol HCl 50 - 100 mg PO Q8HR PRN #14 tablet 03/31/18 04/16/18 Ciprofloxacin HCl [Cipro] 500 mg PO BID #20 tablet 04/11/18 04/16/18 Hydrocodone/Acetaminophen 0.5 - 1 each PO Q6H PRN #7 tablet 04/11/18 04/16/18 [Hydrocodon-Acetaminophen 5-325] Metronidazole [Flagyl] 500 mg PO BID #20 tablet 04/11/18 04/16/18 Dexamethasone [Decadron] 4 mg PO DAILY #5 tablet 05/06/18 Tramadol HCl 50 mg PO Q6H PRN #15 tablet 05/06/18 Cyclobenzaprine [Flexeril] 10 mg PO TID PRN #20 tablet 05/22/18 Oxycodone HCl/Acetaminophen 1 - 2 each PO Q6H PRN #14 tablet 05/22/18 [Percocet 5-325 mg Tablet] Hydrocodone/Acetaminophen 1 - 2 each PO Q6H PRN #14 tablet 06/14/18 [Hydrocodon-Acetaminophen 5-325] Ondansetron Odt [Zofran] 4 mg TL Q6H PRN #10 tablet 06/14/18 Albuterol Sulf [Ventolin Hfa 2 - 3 puffs INH Q4HR PRN #1 inhaler 07/11/18 Inhaler] Azithromycin [Zithromax] 0 mg PO DAILY #6 tablet 07/11/18 Dexamethasone [Decadron] 4 mg PO DAILY #5 tablet 07/11/18 Hydrocodone/Acetaminophen [[place] 1 each PO Q6H PRN #15 tablet 07/11/18 5-325 Tablet] Ondansetron Odt [Zofran] 4 mg TL Q6H PRN #10 tablet 07/11/18 - Allergies Allergies/Adverse Reactions: Allergies Allergy/AdvReac Type Severity Reaction Status Date / Time amoxicillin [Amoxicillin] Allergy Rash Verified 07/11/18 14:20 benzocaine Allergy Anaphylaxis Verified 07/11/18 14:20 cefaclor [From Ceclor] Allergy Rash Verified 07/11/18 14:20 cephalexin monohydrate * Allergy Rash Verified 07/11/18 14:20 [From Keflex] clindamycin Allergy Rash Verified 07/11/18 14:20 codeine [Codeine] Allergy Rash Verified 07/11/18 14:20 doxycycline Allergy Rash Verified 07/11/18 14:20 ibuprofen Allergy Rash Verified 07/11/18 14:20 ketorolac [From Toradol] Allergy Rash Verified 07/11/18 14:20 morphine Allergy Rash Verified 07/11/18 14:20 NSAIDS (Non-Steroidal Allergy Unknown Verified 07/11/18 14:20 Anti-Inflamma Penicillins Allergy Rash Verified 07/11/18 14:20 - Social History Does the pt smoke?: Yes Smoking Status: Current every day smoker Does the pt drink ETOH?: No Does the pt have substance abuse?: No - Immunizations Immunizations are current?: Yes - POLST Patient has POLST: No PD ED PE NORMAL - Vitals Vital signs reviewed: Yes - General General: Alert and oriented X 3, No acute distress, Well developed/nourished - HEENT HEENT: Ears normal, Moist mucous membranes, Pharynx benign - Neck Neck: Supple, no meningeal sign, No adenopathy - Cardiac Cardiac: RRR, No murmur - Respiratory Respiratory: Clear bilaterally - Abdomen Abdomen: Soft, Non tender - Derm Derm: Normal color, Warm and dry - Neuro Neuro: Alert and oriented X 3, No motor deficit, Normal speech Results - Vitals Vitals: Oxygen O2 Source Room air PD MEDICAL DECISION MAKING - ED course Complexity details: considered differential (sounds like flu initially but with 3 weeks of productive cough persisting, consider bacterial secondary infection.), d/w patient Departure - Departure Disposition: 01 Home, Self Care Clinical Impression: Bronchitis Asthma Qualifiers: Asthma severity: mild Asthma persistence: intermittent Asthma complication type: with acute exacerbation Qualified Code(s): J45.21 - Mild intermittent asthma with (acute) exacerbation Condition: Stable Record reviewed to determine appropriate education?: Yes Instructions: ED Upper Resp Infec Abx Tx Follow-Up: Margie Pathak ARNP [Primary Care Provider] - Prescriptions: Albuterol Sulf [Ventolin Hfa Inhaler] 2 - 3 puffs INH Q4HR PRN #1 inhaler PRN Reason: Shortness Of Air/Wheezing Azithromycin [Zithromax] 0 mg PO DAILY #6 tablet Dexamethasone [Decadron] 4 mg PO DAILY #5 tablet Hydrocodone/Acetaminophen [[place] 5-325 Tablet] 1 each PO Q6H PRN #15 tablet PRN Reason: Pain Ondansetron Odt [Zofran] 4 mg TL Q6H PRN #10 tablet PRN Reason: Nausea / Vomiting Comments: Stay well-hydrated. Use ondansetron if needed for nausea. Use the albuterol inhaler 2 puffs 4 times a day as needed for wheezing and cough. Suggest using it regularly for the first week. Use it extra times as needed. Decadron steroid and Zithromax antibiotic daily for 5 more days. Use your benzonatate for cough if needed. Add hydrocodone if needed for cough and/or pain. Recheck if not improving over the next several days. Discharge Date/Time: 07/11/18 17:27
[2018-07-11] MEDS ORDERED: HYDROcod/ACETAM 5/325 MG TABLET PO STA (16:24)
[2018-07-11] MEDS ORDERED: DEXAMETHASONE 10 MG/ML VIAL PO STA (16:24)
[2018-07-11] MEDS ORDERED: ALBUTEROL NEB 2.5 MG/3 ML INH STA (16:24)
[2018-07-11] MEDS ORDERED: ONDANSETRON ODT 4 MG TABLET TL STA (16:24)
[2018-07-11] MEDS ORDERED: AZITHROMYCIN 250 MG TABLET PO STA (16:30)
[2018-07-11 17:20] VITALS: BP 126/87
== END 2018-07-11 17:27 | disposition home or self-care (01) ==
LOC: ED 14:10
DX: J40 Bronchitis, not specified as acute or chronic (principal); J45.21 Mild intermittent asthma with (acute) exacerbation; F17.200 Nicotine dependence, unspecified, uncomplicated
CPT/HCPCS: 94640; 99283; A9270; Q0162

== ENCOUNTER 2018-07-15 13:07 | Emergency (ER) | payer MEDICAID ==
[2018-07-15 13:16] VITALS: BP 133/92
--- NOTE | 2018-07-15 13:39 | ED Physician Documentation ---
PD HPI HEENT - Stated complaint Stated Complaint: TOOTH PX - Chief complaint Chief Complaint: Heent - History obtained from History obtained from: Patient - History of Present Illness Timing - onset: How many hours ago (few), Today Timing - duration: Hours Timing - details: Abrupt onset (She was eating something not too hard at work and her tooth broke and has considerable pain. She has had poor dentition in the past. This tooth had not been bothering her however. It is causing considerable pain at this time.), Still present Location: Tooth (left upper) Associated symptoms: Other (She has had bronchitis and upper respiratory symptoms seen recently for cough and congestion. She is on a Z-Nasim as well as Decadron and Tessalon for this and states she is improving. She still has 2 more days of her antibiotics.). No: Fever Recently seen: Emergency Dept (for unrelated (bronchitis/URI symptoms).) Review of Systems Constitutional: denies: Fever Throat: reports: Dental pain / toothache (just today). 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) Psych: Anxiety, Bipolar disorder Musculoskeletal: None - Past Surgical History Past Surgical History: Yes /DAMPER WORKER: section - Present Medications Home Medications: Ambulatory Orders Medication Instructions Recorded Confirmed Albuterol 1 puffs INH BID 11/26/15 04/16/18 Tramadol HCl 50 - 100 mg PO Q8HR PRN #14 tablet 03/31/18 04/16/18 Ciprofloxacin HCl [Cipro] 500 mg PO BID #20 tablet 04/11/18 04/16/18 Hydrocodone/Acetaminophen 0.5 - 1 each PO Q6H PRN #7 tablet 04/11/18 04/16/18 [Hydrocodon-Acetaminophen 5-325] Metronidazole [Flagyl] 500 mg PO BID #20 tablet 04/11/18 04/16/18 Dexamethasone [Decadron] 4 mg PO DAILY #5 tablet 05/06/18 Tramadol HCl 50 mg PO Q6H PRN #15 tablet 05/06/18 Cyclobenzaprine [Flexeril] 10 mg PO TID PRN #20 tablet 05/22/18 Oxycodone HCl/Acetaminophen 1 - 2 each PO Q6H PRN #14 tablet 05/22/18 [Percocet 5-325 mg Tablet] Hydrocodone/Acetaminophen 1 - 2 each PO Q6H PRN #14 tablet 06/14/18 [Hydrocodon-Acetaminophen 5-325] Ondansetron Odt [Zofran] 4 mg TL Q6H PRN #10 tablet 06/14/18 Albuterol Sulf [Ventolin Hfa 2 - 3 puffs INH Q4HR PRN #1 inhaler 07/11/18 Inhaler] Azithromycin [Zithromax] 0 mg PO DAILY #6 tablet 07/11/18 Dexamethasone [Decadron] 4 mg PO DAILY #5 tablet 07/11/18 Hydrocodone/Acetaminophen [[place] 1 each PO Q6H PRN #15 tablet 07/11/18 5-325 Tablet] Ondansetron Odt [Zofran] 4 mg TL Q6H PRN #10 tablet 07/11/18 Hydrocodone/Acetaminophen [[place] 1 each PO Q6H PRN #20 tablet 07/15/18 5-325 Tablet] - Allergies Allergies/Adverse Reactions: Allergies Allergy/AdvReac Type Severity Reaction Status Date / Time amoxicillin [Amoxicillin] Allergy Rash Verified 07/15/18 14:08 benzocaine Allergy Anaphylaxis Verified 07/15/18 14:08 cefaclor [From Ceclor] Allergy Rash Verified 07/15/18 14:08 cephalexin monohydrate * Allergy Rash Verified 07/15/18 14:08 [From Keflex] clindamycin Allergy Rash Verified 07/15/18 14:08 codeine [Codeine] Allergy Rash Verified 07/15/18 14:08 doxycycline Allergy Rash Verified 07/15/18 14:08 ibuprofen Allergy Rash Verified 07/15/18 14:08 ketorolac [From Toradol] Allergy Rash Verified 07/15/18 14:08 morphine Allergy Rash Verified 07/15/18 14:08 NSAIDS (Non-Steroidal Allergy Unknown Verified 07/11/18 14:20 Anti-Inflamma Penicillins Allergy Rash Verified 07/11/18 14:20 - Social History Does the pt smoke?: Yes Smoking Status: Current every day smoker Does the pt drink ETOH?: No Does the pt have substance abuse?: No - Immunizations Immunizations are current?: Yes - POLST Patient has POLST: No PD ED PE NORMAL - Vitals Vital signs reviewed: Yes - General General: Alert and oriented X 3, Well developed/nourished, Other (She appears considerably uncomfortable related to the upper left tooth pain. There is a broken tooth left upper first molar with the posterior half of it still present in the anterior half missing with exposure of the pulp and it does extend to the gum level. There is no swelling of the gum nor any drainage.) - HEENT HEENT: No: Dentition benign - Neck Neck: Supple, no meningeal sign, No adenopathy Results - Vitals Vitals: Vital Signs - 24 hr 07/15/18 13:15 Temperature 36.7 C Heart Rate 104 H Respiratory 20 Rate Blood Pressure 133/92 H O2 Saturation 95 Oxygen O2 Source Room air Procedures - General procedure General procedure: Temporary filling Cavitt placed in the remaining tooth. Dental block was done as well. - Regional nerve block Nerve block site: Infraorbital Right / left: Left Nerve block anesthesia: Marcaine 0.5% Nerve block aftercare: Excellent anesthesia, No complications Departure - Departure Disposition: 01 Home, Self Care Clinical Impression: Pain due to dental caries Condition: Stable Record reviewed to determine appropriate education?: Yes Instructions: ED Tooth Pain Follow-Up: Margie Pathak ARNP [Primary Care Provider] - Prescriptions: Hydrocodone/Acetaminophen [[place] 5-325 Tablet] 1 each PO Q6H PRN #20 tablet PRN Reason: Pain Comments: Follow up Dentist as soon as available appt. No firm chewing on that side. Pain med as needed.
[2018-07-15] MEDS ORDERED: HYDROcod/ACETAM 5/325 MG TABLET PO STA (13:49)
== END 2018-07-15 14:14 | disposition home or self-care (01) ==
LOC: ED 13:07
DX: K02.9 Dental caries, unspecified (principal); S02.5XXA Fracture of tooth (traumatic), initial encounter for closed fracture; X58.XXXA Exposure to other specified factors, initial encounter; F17.200 Nicotine dependence, unspecified, uncomplicated
CPT/HCPCS: 64400; 99283; A9270

== ENCOUNTER 2018-08-06 17:18 | Emergency (ER) | payer MEDICAID ==
[2018-08-06] MEDS ORDERED: BUPIVACAINE 0.5%-EPI 1:200000 PF 10 ML VIAL SUBQ STA (18:49)
[2018-08-06] MEDS ORDERED: ERYTHROMYCIN BASE DR 250 MG TABLET PO STA (18:50)
--- NOTE | 2018-08-06 18:51 | ED Physician Documentation ---
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 She was seen here for this last month and a temporary filling was placed which failed about 3 days ago. In the interim she did see a dentist but they will not do an extraction until she is cleared by her manager financial who she had an appointment with but then was canceled. Pain is now severe. 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: section - Present Medications Home Medications: Ambulatory Orders Medication Instructions Recorded Confirmed Albuterol 1 puffs INH BID 11/26/15 04/16/18 Tramadol HCl 50 - 100 mg PO Q8HR PRN #14 tablet 03/31/18 04/16/18 Ciprofloxacin HCl [Cipro] 500 mg PO BID #20 tablet 04/11/18 04/16/18 Hydrocodone/Acetaminophen 0.5 - 1 each PO Q6H PRN #7 tablet 04/11/18 04/16/18 [Hydrocodon-Acetaminophen 5-325] Metronidazole [Flagyl] 500 mg PO BID #20 tablet 04/11/18 04/16/18 Dexamethasone [Decadron] 4 mg PO DAILY #5 tablet 05/06/18 Tramadol HCl 50 mg PO Q6H PRN #15 tablet 05/06/18 Cyclobenzaprine [Flexeril] 10 mg PO TID PRN #20 tablet 05/22/18 Oxycodone HCl/Acetaminophen 1 - 2 each PO Q6H PRN #14 tablet 05/22/18 [Percocet 5-325 mg Tablet] Hydrocodone/Acetaminophen 1 - 2 each PO Q6H PRN #14 tablet 06/14/18 [Hydrocodon-Acetaminophen 5-325] Ondansetron Odt [Zofran] 4 mg TL Q6H PRN #10 tablet 06/14/18 Albuterol Sulf [Ventolin Hfa 2 - 3 puffs INH Q4HR PRN #1 inhaler 07/11/18 Inhaler] Azithromycin [Zithromax] 0 mg PO DAILY #6 tablet 07/11/18 Dexamethasone [Decadron] 4 mg PO DAILY #5 tablet 07/11/18 Hydrocodone/Acetaminophen [[place] 1 each PO Q6H PRN #15 tablet 07/11/18 5-325 Tablet] Ondansetron Odt [Zofran] 4 mg TL Q6H PRN #10 tablet 07/11/18 Hydrocodone/Acetaminophen [[place] 1 each PO Q6H PRN #20 tablet 07/15/18 5-325 Tablet] Erythromycin [Matthew-Tab] 250 mg PO Q6H #40 tablet 08/06/18 Hydrocodone/Acetaminophen 1 - 2 each PO Q6H PRN #14 tablet 08/06/18 [Hydrocodon-Acetaminophen 5-325] - Allergies Allergies/Adverse Reactions: Allergies Allergy/AdvReac Type Severity Reaction Status Date / Time amoxicillin [Amoxicillin] Allergy Rash Verified 08/06/18 17:35 benzocaine Allergy Anaphylaxis Verified 08/06/18 17:35 cefaclor [From Ceclor] Allergy Rash Verified 08/06/18 17:35 cephalexin monohydrate * Allergy Rash Verified 08/06/18 17:35 [From Keflex] clindamycin Allergy Rash Verified 08/06/18 17:35 codeine [Codeine] Allergy Rash Verified 08/06/18 17:35 doxycycline Allergy Rash Verified 08/06/18 17:35 morphine Allergy Rash Verified 08/06/18 17:35 Penicillins Allergy Rash Verified 07/11/18 14:20 - Social History Does the pt smoke?: Yes Smoking Status: Current every day smoker Does the pt drink ETOH?: No Does the pt have substance abuse?: No - Immunizations Immunizations are current?: Yes - POLST Patient has POLST: No PD ED PE NORMAL - Vitals Vital signs reviewed: Yes - General General: Alert and oriented X 3, No acute distress - HEENT HEENT: Other (There is a cavity with a temporary filling in it from the left maxillary premolar with tenderness but no facial swelling or trismus.) - Neck Neck: Supple, no meningeal sign, No bony TTP - Psych Psych: Normal mood, Normal affect Results - Vitals Vitals: Vital Signs - 24 hr 08/06/18 17:33 Temperature 37 C Heart Rate 83 Respiratory 18 Rate Blood Pressure 153/71 H O2 Saturation 98 Oxygen O2 Source Room air Procedures - Regional nerve block Nerve block site: Infraorbital Right / left: Left Nerve block anesthesia: Marcaine 0.5% Nerve block aftercare: Moderate Anesthesia Departure - Departure Disposition: 01 Home, Self Care 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 Return for new or worsening symptoms.
[2018-08-06] MEDS ORDERED: HYDROcod/ACET 5/325 Prepack 4 PO STA (19:58)
[2018-08-06 20:13] VITALS: BP 124/89
== END 2018-08-06 20:13 | disposition home or self-care (01) ==
LOC: ED 17:18
DX: K08.89 Other specified disorders of teeth and supporting structures (principal); K02.9 Dental caries, unspecified; D66 Hereditary factor VIII deficiency; F17.200 Nicotine dependence, unspecified, uncomplicated
CPT/HCPCS: 36415; 64450; 85240; 99283; A9270

== ENCOUNTER 2018-09-23 13:04 | Emergency (ER) | payer MEDICAID ==
[2018-09-23] MEDS ORDERED: IPRATROPIUM/ALBUTEROL 3 ML NEB INH STA (15:33)
[2018-09-23] MEDS ORDERED: CHERRY SYRUP 10 ML UDC PO ONE (15:33)
[2018-09-23] MEDS ORDERED: DEXAMETHASONE 10 MG/ML VIAL PO STA (15:33)
--- NOTE | 2018-09-23 15:36 | ED Physician Documentation ---
PD HPI URI - Stated complaint Stated Complaint: LUMP ON RT SIDE ARMPIT/VOMITING/COUGH - Chief complaint Chief Complaint: General - History obtained from History obtained from: Patient, Family - History of Present Illness Timing - onset: How many weeks ago (1) Timing duration: Weeks (1) Timing details: Gradual onset, Still present Associated symptoms: Nasal congestion, Rhinorrhea, Sinus pain, Sore throat, Productive cough, Chest pain, Dyspnea Improves by: Rest, MDI/nebulizer Similar symptoms before: Diagnosis (asthmatic bronchitis) Recently seen: Not recently seen - Additional information Additional information: 28-year-old female with a history of asthmatic bronchitis has developed a cough congestion and wheezing. She is coughing up yellow and green phlegm and she has developed some pain in her right chest. She has noticed a mass in her right breast and she feels that this is extended in size it is become tender and she feels it is gone all the way into her axilla Review of Systems Constitutional: denies: Fever Eyes: denies: Decreased vision Ears: denies: Ear pain Nose: reports: Congestion. denies: Rhinorrhea / runny nose Throat: denies: Sore throat Cardiac: reports: Chest pain / pressure. 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 POSTER: section - Present Medications Home Medications: Ambulatory Orders Medication Instructions Recorded Confirmed Albuterol 1 puffs INH BID 11/26/15 04/16/18 Tramadol HCl 50 - 100 mg PO Q8HR PRN #14 tablet 03/31/18 04/16/18 Ciprofloxacin HCl [Cipro] 500 mg PO BID #20 tablet 04/11/18 04/16/18 Hydrocodone/Acetaminophen 0.5 - 1 each PO Q6H PRN #7 tablet 04/11/18 04/16/18 [Hydrocodon-Acetaminophen 5-325] Metronidazole [Flagyl] 500 mg PO BID #20 tablet 04/11/18 04/16/18 Tramadol HCl 50 mg PO Q6H PRN #15 tablet 05/06/18 dexAMETHasone [Decadron] 4 mg PO DAILY #5 tablet 05/06/18 Cyclobenzaprine [Flexeril] 10 mg PO TID PRN #20 tablet 05/22/18 Oxycodone HCl/Acetaminophen 1 - 2 each PO Q6H PRN #14 tablet 05/22/18 [Percocet 5-325 mg Tablet] Hydrocodone/Acetaminophen 1 - 2 each PO Q6H PRN #14 tablet 06/14/18 [Hydrocodon-Acetaminophen 5-325] Ondansetron Odt [Zofran] 4 mg TL Q6H PRN #10 tablet 06/14/18 Albuterol Sulf [Ventolin Hfa 2 - 3 puffs INH Q4HR PRN #1 inhaler 07/11/18 Inhaler] Azithromycin [Zithromax] 0 mg PO DAILY #6 tablet 07/11/18 Hydrocodone/Acetaminophen [[place] 1 each PO Q6H PRN #15 tablet 07/11/18 5-325 Tablet] Ondansetron Odt [Zofran] 4 mg TL Q6H PRN #10 tablet 07/11/18 dexAMETHasone [Decadron] 4 mg PO DAILY #5 tablet 07/11/18 Hydrocodone/Acetaminophen [[place] 1 each PO Q6H PRN #20 tablet 07/15/18 5-325 Tablet] Erythromycin [Matthew-Tab] 250 mg PO Q6H #40 tablet 08/06/18 Hydrocodone/Acetaminophen 1 - 2 each PO Q6H PRN #14 tablet 08/06/18 [Hydrocodon-Acetaminophen 5-325] Azithromycin [Zithromax] 250 mg PO DAILY #6 tablet 09/23/18 predniSONE [Deltasone] 10 mg PO ONCE #26 tablet 09/23/18 traMADol [Ultram] 50 - 100 mg PO Q6H PRN #20 tablet 09/23/18 - Allergies Allergies/Adverse Reactions: Allergies Allergy/AdvReac Type Severity Reaction Status Date / Time amoxicillin [Amoxicillin] Allergy Rash Verified 09/23/18 13:13 benzocaine Allergy Anaphylaxis Verified 09/23/18 13:13 cefaclor [From Ceclor] Allergy Rash Verified 09/23/18 13:13 cephalexin monohydrate * Allergy Rash Verified 09/23/18 13:13 [From Keflex] clindamycin Allergy Rash Verified 09/23/18 13:13 codeine [Codeine] Allergy Rash Verified 09/23/18 13:13 doxycycline Allergy Rash Verified 09/23/18 13:13 morphine Allergy Rash Verified 09/23/18 13:13 Penicillins Allergy Rash Verified 09/23/18 13:13 - Social History Does the pt smoke?: Yes Smoking Status: Current every day smoker Does the pt drink ETOH?: No Does the pt have substance abuse?: No - Immunizations Immunizations are current?: Yes - POLST Patient has POLST: No PD ED PE NORMAL - Vitals Vital signs reviewed: Yes (Hypertensive) - General General: No acute distress, Well developed/nourished - HEENT HEENT: Atraumatic, PERRL, EOMI, Ears normal, Other (dry mucous membranes ) - Neck Neck: Supple, no meningeal sign, No bony TTP - Cardiac Cardiac: RRR, No murmur - Respiratory Respiratory: No respiratory distress, Other (rhonchi bibasilar worse on the right. There is a firm mobile mass in the right breast superior lateral quadrant that is tender and without fluctuance, erythema or drainage. There is no appreciable mass in the axilla. ) - Abdomen Abdomen: Soft, Non tender - Back Back: No CVA TTP, No spinal TTP - Derm Derm: Normal color, Warm and dry, No rash - Extremities Extremities: No deformity, No edema - Neuro Neuro: Alert and oriented X 3, electrician 2-12 intact, No motor deficit, No sensory deficit, Normal speech Eye Opening: Spontaneous Motor: Obeys Commands Verbal: Oriented GCS Score: 15 - Psych Psych: Normal mood, Normal affect Results - Vitals Vitals: Vital Signs - 24 hr 09/23/18 09/23/18 09/23/18 13:07 14:51 15:42 Temperature 37.1 C 37.2 C Heart Rate 94 91 100 Respiratory 14 18 16 Rate Blood Pressure 144/81 H 142/96 H O2 Saturation 100 97 Oxygen O2 Source Room air - Rads (name of study) chest 2 view Radiology: Prelim report reviewed (Impression: No acute cardiopulmonary abnormality demonstrated.), EMP read indepedently, See rad report PD MEDICAL DECISION MAKING - ED course Complexity details: reviewed results, re-evaluated patient, considered differential, d/w patient, d/w family ED course: 28-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 She seems quite emotionally labile and she refuses oral Decadron as she recalls feeling crazy after she took it and had to throw the medication away. She does not remember being on prednisone previously and she is complaining of pain in the right anterior chest. She is administered prednisone 60 mg orally and tramadol 100 mg orally, chest x-ray is obtained as well as a DuoNeb treatment. She has improvement with treatment. She is a nervous person and likely has breast cancer to the right breast and follow up is imperative. Departure - Departure Disposition: 01 Home, Self Care Clinical Impression: Breast mass in female Asthmatic bronchitis Qualifiers: Asthma severity: mild Asthma persistence: intermittent Asthma complication type: with acute exacerbation Qualified Code(s): J45.21 - Mild intermittent asthma with (acute) exacerbation Condition: Stable Instructions: ED Breast Mass Uncertain Cause, ED Bronchitis Asthmatic Follow-Up: [facility] [Provider Group] Prescriptions: Azithromycin [Zithromax] 250 mg PO DAILY #6 tablet predniSONE [Deltasone] 10 mg PO ONCE #26 tablet traMADol [Ultram] 50 - 100 mg PO Q6H PRN #20 tablet PRN Reason: Pain Forms: Activity restrictions
[2018-09-23] MEDS ORDERED: predniSONE 20 MG TABLET PO STA (15:44)
[2018-09-23] MEDS ORDERED: traMADol 50 MG TABLET PO STA (15:45)
--- NOTE | 2018-09-23 16:50 | XRAY Report ---
Reason: cough right sided chest pain right breast mass Procedure Date: 09/23/2018 Accession Number: [id number] / [id number] Procedure: XR - Chest 2 View X-Ray CPT Code: 83267 FULL RESULT: EXAM: CHEST RADIOGRAPHY EXAM DATE: 09/23/2018 04:36 PM. CLINICAL HISTORY: Cough. COMPARISON: CHEST 2 VIEW 04/23/2017 7:49 PM. TECHNIQUE: 2 views. FINDINGS: Lungs/Pleura: Tiny calcified granuloma in the right midlung region is unchanged. No focal opacities evident. No pleural effusion. No pneumothorax. Normal volumes. Mediastinum: Heart and mediastinal contours are unremarkable. Other: None. IMPRESSION: No acute cardiopulmonary abnormality demonstrated. RADIA
[2018-09-23 17:19] VITALS: BP 140/84
== END 2018-09-23 17:33 | disposition home or self-care (01) ==
LOC: ED 13:04
DX: J45.21 Mild intermittent asthma with (acute) exacerbation (principal); N63.10 Unspecified lump in the right breast, unspecified quadrant; R07.9 Chest pain, unspecified; D66 Hereditary factor VIII deficiency; F17.200 Nicotine dependence, unspecified, uncomplicated
CPT/HCPCS: 71046; 94640; 99283; A9270; J7512

== ENCOUNTER 2018-10-14 13:46 | Emergency (ER) | payer OTHER, MEDICAID ==
[2018-10-14] MEDS ORDERED: IOVERSOL 320 100 ML VIAL IVP ONE ×3 (13:47→15:47)
[2018-10-14] MEDS ORDERED: HYDROmorphone 1 MG/ML CARPUJECT IVP STA ×2 (14:15→15:58)
--- NOTE | 2018-10-14 14:29 | ED Physician Documentation ---
PD HPI Fall - Stated complaint Stated Complaint: RIB PX/ARM/WRIST INJ - Chief complaint Chief Complaint: General - History obtained from History obtained from: Patient - History of Present Illness Mechanism of injury: Slipped (Was at work and foot went in a hole. 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 She is sure she did not hit her head. Review of Systems Ten Systems: 10 systems reviewed and negative Constitutional: denies: Fever, Chills Cardiac: reports: Chest pain / pressure. denies: Palpitations Respiratory: denies: Dyspnea, Cough GI: reports: Abdominal Pain. denies: Nausea, Vomiting : denies: Now [facility] PAST MEDICAL HISTORY - Past Medical History Cardiovascular: None Respiratory: Asthma Neuro: None Endocrine/Autoimmune: None GI: None MEDICAL LEADER: Miscarriage(s) : None HEENT: None Psych: Anxiety, Bipolar disorder Musculoskeletal: None Derm: None - Past Surgical History Past Surgical History: Yes /MEDICAL LEADER: section - Present Medications Home Medications: Ambulatory Orders Medication Instructions Recorded Confirmed Albuterol 1 puffs INH BID 11/26/15 04/16/18 Tramadol HCl 50 - 100 mg PO Q8HR PRN #14 tablet 03/31/18 04/16/18 Ciprofloxacin HCl [Cipro] 500 mg PO BID #20 tablet 04/11/18 04/16/18 Hydrocodone/Acetaminophen 0.5 - 1 each PO Q6H PRN #7 tablet 04/11/18 04/16/18 [Hydrocodon-Acetaminophen 5-325] Metronidazole [Flagyl] 500 mg PO BID #20 tablet 04/11/18 04/16/18 Tramadol HCl 50 mg PO Q6H PRN #15 tablet 05/06/18 dexAMETHasone [Decadron] 4 mg PO DAILY #5 tablet 05/06/18 Cyclobenzaprine [Flexeril] 10 mg PO TID PRN #20 tablet 05/22/18 Oxycodone HCl/Acetaminophen 1 - 2 each PO Q6H PRN #14 tablet 05/22/18 [Percocet 5-325 mg Tablet] Hydrocodone/Acetaminophen 1 - 2 each PO Q6H PRN #14 tablet 06/14/18 [Hydrocodon-Acetaminophen 5-325] Ondansetron Odt [Zofran] 4 mg TL Q6H PRN #10 tablet 06/14/18 Albuterol Sulf [Ventolin Hfa 2 - 3 puffs INH Q4HR PRN #1 inhaler 07/11/18 Inhaler] Azithromycin [Zithromax] 0 mg PO DAILY #6 tablet 07/11/18 Hydrocodone/Acetaminophen [[place] 1 each PO Q6H PRN #15 tablet 07/11/18 5-325 Tablet] Ondansetron Odt [Zofran] 4 mg TL Q6H PRN #10 tablet 07/11/18 dexAMETHasone [Decadron] 4 mg PO DAILY #5 tablet 07/11/18 Hydrocodone/Acetaminophen [[place] 1 each PO Q6H PRN #20 tablet 07/15/18 5-325 Tablet] Erythromycin [Matthew-Tab] 250 mg PO Q6H #40 tablet 08/06/18 Hydrocodone/Acetaminophen 1 - 2 each PO Q6H PRN #14 tablet 08/06/18 [Hydrocodon-Acetaminophen 5-325] Azithromycin [Zithromax] 250 mg PO DAILY #6 tablet 09/23/18 predniSONE [Deltasone] 10 mg PO ONCE #26 tablet 09/23/18 traMADol [Ultram] 50 - 100 mg PO Q6H PRN #20 tablet 09/23/18 Oxycodone HCl/Acetaminophen 1 - 2 each PO Q6H PRN #14 tablet 10/14/18 [Percocet 5-325 mg Tablet] - Allergies Allergies/Adverse Reactions: Allergies Allergy/AdvReac Type Severity Reaction Status Date / Time amoxicillin [Amoxicillin] Allergy Rash Verified 09/23/18 13:13 benzocaine Allergy Anaphylaxis Verified 09/23/18 13:13 cefaclor [From Ceclor] Allergy Rash Verified 09/23/18 13:13 cephalexin monohydrate * Allergy Rash Verified 09/23/18 13:13 [From Keflex] clindamycin Allergy Rash Verified 09/23/18 13:13 codeine [Codeine] Allergy Rash Verified 09/23/18 13:13 doxycycline Allergy Rash Verified 09/23/18 13:13 morphine Allergy Rash Verified 09/23/18 13:13 NSAIDS (Non-Steroidal Allergy Unknown Verified 10/14/18 13:58 Anti-Inflamma Penicillins Allergy Rash Verified 09/23/18 13:13 - Social History Does the pt smoke?: Yes Smoking Status: Current every day smoker Does the pt drink ETOH?: No Does the pt have substance abuse?: No - Immunizations Immunizations are current?: Yes - POLST Patient has POLST: No PD ED PE NORMAL - Vitals Vital signs reviewed: Yes - General General: Alert and oriented X 3, No acute distress - HEENT HEENT: PERRL, EOMI - Neck Neck: Supple, no meningeal sign, No bony TTP - Cardiac Cardiac: RRR, No murmur - Respiratory Respiratory: No respiratory distress, Clear bilaterally, Other (Tender left low ribs laterally, no defmormity) - Abdomen Abdomen: Other (Mild TTP LUQ) - Extremities Extremities: Other (Some diffuse TTP left low humerus and upepr forearm with swelling and ecchymosis.) - Neuro Neuro: Alert and oriented X 3, No motor deficit, No sensory deficit, Normal speech Eye Opening: Spontaneous Motor: Obeys Commands Verbal: Oriented GCS Score: 15 - Psych Psych: Normal mood, Normal affect Results - Vitals Vitals: Vital Signs - 24 hr 10/14/18 10/14/18 13:55 14:48 Temperature 37 C Heart Rate 87 68 Respiratory 20 18 Rate Blood Pressure 140/78 H 120/74 O2 Saturation 98 99 Oxygen O2 Source Room air - Labs Labs: Laboratory Tests 10/14/18 10/14/18 14:31 14:31 WBC 6.1 RBC 4.38 Hgb 13.6 Hct 40.1 MCV 91.6 MCH 31.1 H MCHC 33.9 RDW 12.9 Plt Count 226 MPV 8.8 Neut # (Auto) 3.7 Lymph # (Auto) 2.0 [place] # (Auto) 0.3 Eos # (Auto) 0.0 Baso # (Auto) 0.0 Absolute Nucleated RBC 0.00 Nucleated RBC % 0.0 Sodium 139 Potassium 3.8 Chloride 103 Carbon Dioxide 25 Anion Gap 11.0 BUN 9 Creatinine 0.7 Estimated GFR (MDRD) 98 Glucose 91 Calcium 9.5 Total Bilirubin 0.5 AST 17 ALT 13 Alkaline Phosphatase 42 Total Protein 7.7 Albumin 4.7 Globulin 3.0 Albumin/Globulin Ratio 1.6 Lipase 43 - Rads (name of study) Xr L humerus/forearm Radiology: EMP read contemporaneously (normal) Ct Chest/abd Radiology: EMP read contemporaneously (normal) Departure - Departure Disposition: 01 Home, Self Care Clinical Impression: Hemophilia A Abdominal contusion Qualifiers: Encounter type: initial encounter Qualified Code(s): S30.1XXA - Contusion of abdominal wall, initial encounter Chest wall contusion Qualifiers: Encounter type: initial encounter Laterality: left Qualified Code(s): S20.212A - Contusion of left front wall of thorax, initial encounter Fall Qualifiers: Encounter type: initial encounter Qualified Code(s): W19.XXXA - Unspecified fall, initial encounter Contusion of left arm Qualifiers: Encounter type: initial encounter Qualified Code(s): S40.022A - Contusion of left upper arm, initial encounter Condition: Good Record reviewed to determine appropriate education?: Yes Health Concerns: Fall while working with multiple muscular injuries and contusions but no broken bones or internal injuries on imaging. Plan of Treatment: Factor as needed, patient will self administer. Pain medications and rest, off work for a few days. Care Goals: pain control Assessment: as above Instructions: ED Contusion Soft Tissue Prescriptions: Oxycodone HCl/Acetaminophen [Percocet 5-325 mg Tablet] 1 - 2 each PO Q6H PRN #14 tablet PRN Reason: pain Forms: Activity restrictions
[2018-10-14 14:40] LABS: BASOPHILS % (AUTO) 0.5 %; EOSINOPHILS % (AUTO) 0.7 %; HGB - HEMOGLOBIN 13.6 g/dL (12.0-16.0); LYMPHOCYTES % (AUTO) 32.7 %; MEAN CORPUSCULAR HEMOGLOBIN 31.1 pg (27.0-31.0); MEAN CORPUSCULAR HGB CONC 33.9 g/dL (32.0-36.0); MEAN CORPUSCULAR VOLUME 91.6 fL (81.0-99.0); MEAN PLATELET VOLUME 8.8 fL (7.9-10.8); MONOCYTES # (AUTO) 0.3 10^3/uL (0.0-1.0); MONOCYTES % (AUTO) 4.9 %; NEUTROPHILS # (AUTO) 3.7 10^3/uL (1.5-6.6); NEUTROPHILS % (AUTO) 60.7 %; PLT - PLATELET COUNT 226 10^3/uL (130-450); RED BLOOD COUNT 4.38 10^6/uL (4.20-5.40); RED CELL DISTRIBUTION WIDTH 12.9 % (12.0-15.0); WHITE BLOOD COUNT 6.1 x10^3/uL (4.8-10.8)
[2018-10-14 14:52] LABS: ALBUMIN 4.7 g/dL (3.2-5.5); ALBUMIN/GLOBULIN RATIO 1.6 (1.0-2.2); BILIRUBIN,TOTAL 0.5 mg/dL (0.2-1.0); CALCIUM 9.5 mg/dL (8.5-10.3); CREATININE 0.7 mg/dL (0.4-1.0); TOTAL PROTEIN 7.7 g/dL (6.7-8.2)
--- NOTE | 2018-10-14 15:41 | XRAY Report ---
Reason: L arm injury Procedure Date: 10/14/2018 Accession Number: [id number] / [id number] Procedure: XR - Humerus LT CPT Code: FULL RESULT: EXAM: LEFT HUMERUS RADIOGRAPHY EXAM DATE: 10/14/2018 02:43 PM. CLINICAL HISTORY: L arm injury. COMPARISON: FOREARM LT 12/10/2015 12:14 PM. TECHNIQUE: 2 views. FINDINGS: Bones: No fractures or bone lesions. Joints: No effusions or subluxations in the visualized shoulder or elbow joints. Soft Tissues: No soft tissue swelling. IMPRESSION: Normal humerus radiography. RAD[facility]
--- NOTE | 2018-10-14 15:42 | XRAY Report ---
Reason: L arm injury Procedure Date: 10/14/2018 Accession Number: [id number] / [id number] Procedure: XR - Forearm LT CPT Code: FULL RESULT: EXAM: LEFT FOREARM RADIOGRAPHY EXAM DATE: 10/14/2018 02:45 PM. CLINICAL HISTORY: L arm injury. COMPARISON: FOREARM LT 12/10/2015 12:14 PM. TECHNIQUE: 2 views. FINDINGS: Bones: No fractures or bone lesions. Joints: No effusions or subluxations in the visualized wrist or elbow joints. Soft Tissues: No soft tissue swelling. IMPRESSION: Normal forearm radiography. [facility]
--- NOTE | 2018-10-14 15:58 | CT Report ---
Reason: L rib pain, fall Procedure Date: 10/14/2018 Accession Number: [id number] / [id number] Procedure: CT - CHEST W CPT Code: FULL RESULT: EXAM: CT CHEST EXAM DATE: 10/14/2018 03:44 PM. CLINICAL HISTORY: L rib pain, fall. COMPARISONS: ABDOMEN/PELVIS W/ 09/07/2015 7:57 PM. TECHNIQUE: Routine helical CT imaging was performed through the chest. IV contrast: Optiray 320, 80 mL. Reconstructions: Coronal and sagittal. In accordance with CT protocol optimization, one or more of the following dose reduction techniques were utilized for this exam: automated exposure control, adjustment of mA and/or KV based on patient size, or use of iterative reconstructive technique. FINDINGS: Lungs/Pleura: No bronchial thickening, consolidation, or edema. Calcified granulomas right lung. Pulmonary vasculature is normal. No pericardial or pleural effusion. No pneumothorax. Mediastinum: Calcified mediastinal lymph nodes, consistent with old granulomatous disease. The heart and great vessels are normal. Bones: Unremarkable. Visualized Abdomen: Unremarkable. Other: None. IMPRESSION: No evidence for traumatic injury in the chest. RADIA
--- NOTE | 2018-10-14 16:03 | CT Report ---
Reason: IV only,LUQ pain p fall Procedure Date: 10/14/2018 Accession Number: [id number] / [id number] Procedure: CT - ABDOMEN W CPT Code: FULL RESULT: EXAM: CT ABDOMEN WITHOUT AND WITH CONTRAST EXAM DATE: 10/14/2018 03:44 PM. CLINICAL HISTORY: IV only,LUQ pain p fall. COMPARISONS: ABDOMEN/PELVIS W/ 09/07/2015 7:57 PM. TECHNIQUE: Multiphasic CT of abdomen (pancreas) without and with IV contrast: Optiray 320, 80 mL. Enteric contrast: None. Reconstructions: Coronal and sagittal. In accordance with CT protocol optimization, one or more of the following dose reduction techniques were utilized for this exam: automated exposure control, adjustment of mA and/or KV based on patient size, or use of iterative reconstructive technique. FINDINGS: Lung Bases: Unremarkable. Pancreas: No mass, inflammation, or ductal dilatation. Other Solid Organs: No masses or abnormal enhancement. Gallbladder/Biliary System: No visualized stones or acute inflammation. Bowel: The visualized bowel is unremarkable. Bones: No acute fractures. Other: No free air or free fluid. IMPRESSION: No evidence for acute traumatic injury in the abdomen. RADIA
[2018-10-14 16:18] VITALS: BP 119/74
== END 2018-10-14 16:41 | disposition home or self-care (01) ==
LOC: ED 13:46
DX: S20.212A Contusion of left front wall of thorax, initial encounter (principal); S30.1XXA Contusion of abdominal wall, initial encounter; S40.022A Contusion of left upper arm, initial encounter; W01.198A Fall on same level from slipping, tripping and stumbling with subsequent striking against other object, initial encounter; Y93.89 Activity, other specified; Y92.89 Other specified places as the place of occurrence of the external cause; Y99.0 Civilian activity done for income or pay; D66 Hereditary factor VIII deficiency; F17.200 Nicotine dependence, unspecified, uncomplicated
CPT/HCPCS: 36415; 71260; 73060; 73090; 74160; 80053; 83690; 85025; 96374; 96376; 99283; 99284; J1170; Q9967

== ENCOUNTER 2018-10-27 16:29 | Emergency (ER) | payer MEDICAID ==
[2018-10-27] MEDS ORDERED: DICYCLOMINE 10 MG CAPSULE PO STA ×2 (16:52→19:19)
[2018-10-27] MEDS ORDERED: LOPERAMIDE 2 MG CAPSULE PO STA (16:52)
[2018-10-27] MEDS ORDERED: PROMETHAZINE INJ 25 MG in SODIUM CHLORIDE 0.9% 50 ML IV STA (16:52)
--- NOTE | 2018-10-27 16:54 | ED Physician Documentation ---
PD HPI NVD - Stated complaint Stated Complaint: VOMITING - Chief complaint Chief Complaint: Abd Pain - History obtained from History obtained from: Patient - History of Present Illness Timing - onset: Last night (She and her ate at a restaurant last night, they left around 10 PM. They both started vomiting around 1 AM cramps and diarrhea. She continues to have all of the above symptoms. No hematemesis or bloody diarrhea. No fevers. She doubts possibility of .) Review of Systems Constitutional: reports: Sweats. denies: Fever, Chills Cardiac: denies: Chest pain / pressure, Palpitations Respiratory: denies: Dyspnea, Cough GI: reports: Abdominal Pain, Nausea, Vomiting, Diarrhea. denies: Constipation, Hematemesis, Bloody / black stool PD PAST MEDICAL HISTORY - Past Medical History Cardiovascular: None Respiratory: Asthma Neuro: None Endocrine/Autoimmune: None GI: None OFFICE MOVER: Miscarriage(s) : None HEENT: None Psych: Anxiety, Bipolar disorder Musculoskeletal: None Derm: None - Past Surgical History Past Surgical History: Yes /OFFICE MOVER: section - Present Medications Home Medications: Ambulatory Orders Medication Instructions Recorded Confirmed Albuterol 1 puffs INH BID 11/26/15 04/16/18 Albuterol Sulf [Ventolin Hfa 2 - 3 puffs INH Q4HR PRN #1 inhaler 07/11/18 Inhaler] Dicyclomine [Bentyl] 20 mg PO QID PRN #15 capsule 10/27/18 Loperamide [Imodium] 2 mg PO QID PRN #10 capsule 10/27/18 Ondansetron Odt [Zofran] 4 mg TL Q6H PRN #10 tablet 10/27/18 - Allergies Allergies/Adverse Reactions: Allergies Allergy/AdvReac Type Severity Reaction Status Date / Time amoxicillin [Amoxicillin] Allergy Rash Verified 10/27/18 16:45 benzocaine Allergy Anaphylaxis Verified 10/27/18 16:45 cefaclor [From Ceclor] Allergy Rash Verified 10/27/18 16:45 cephalexin monohydrate * Allergy Rash Verified 10/27/18 16:45 [From Keflex] clindamycin Allergy Rash Verified 10/27/18 16:45 codeine [Codeine] Allergy Rash Verified 10/27/18 16:45 doxycycline Allergy Rash Verified 10/27/18 16:45 morphine Allergy Rash Verified 10/27/18 16:45 NSAIDS (Non-Steroidal Allergy Unknown Verified 10/27/18 16:45 Anti-Inflamma Penicillins Allergy Rash Verified 10/27/18 16:45 - Social History Does the pt smoke?: Yes Smoking Status: Current every day smoker Does the pt drink ETOH?: No Does the pt have substance abuse?: No - Immunizations Immunizations are current?: Yes - POLST Patient has POLST: No PD ED PE NORMAL - Vitals Vital signs reviewed: Yes - General General: Alert and oriented X 3, No acute distress - HEENT HEENT: Pharynx benign, Other (dry MM) - Cardiac Cardiac: RRR, No murmur - Respiratory Respiratory: No respiratory distress, Clear bilaterally - Abdomen Abdomen: Soft, Non tender - Derm Derm: No rash - Neuro Neuro: Alert and oriented X 3, Normal speech Results - Vitals Vitals: Vital Signs - 24 hr 10/27/18 10/27/18 16:36 18:18 Temperature 37.3 C Heart Rate 95 73 Respiratory 14 20 Rate Blood Pressure 118/70 116/72 O2 Saturation 98 99 Oxygen O2 Source Room air - Labs Labs: Laboratory Tests 10/27/18 10/27/18 12:15 17:15 Sodium 140 Potassium 4.1 Chloride 107 Carbon Dioxide 23 Anion Gap 10.0 BUN 15 Creatinine 0.7 Estimated GFR (MDRD) 98 Glucose 98 Calcium 9.1 Total Bilirubin 0.5 AST 14 ALT 11 Alkaline Phosphatase 40 L Total Protein 7.0 Albumin 4.4 Globulin 2.6 Albumin/Globulin Ratio 1.7 Lipase 33 Urine Color LT. YELLOW Urine Clarity SL. CLOUDY Urine pH 7.5 Ur Specific [place] 1.010 Urine Protein NEGATIVE Urine Glucose (UA) NEGATIVE Urine Ketones NEGATIVE Urine Occult Blood SMALL H Urine Nitrite NEGATIVE Urine Bilirubin NEGATIVE Urine Urobilinogen 0.2 (NORMAL) Ur Leukocyte Esterase NEGATIVE Urine RBC 0-5 Urine WBC 0-3 Ur Squamous Epith Cells FEW Squamous Amorphous Sediment Moderate Urine Bacteria None Seen Ur Microscopic Review INDICATED Urine Culture Comments NOT INDICATED Urine HCG, Qual NEGATIVE PD MEDICAL DECISION MAKING - ED course ED course: 28-year-old woman with what sounds like gastroenteritis or food poisoning. Her symptoms improved stepwise with medications and IV fluids here and she passed an oral challenge and remained nontender on reexamination at 7:10 PM just prior to discharge. Departure - Departure Disposition: 01 Home, Self Care Clinical Impression: Gastroenteritis Condition: Good Record reviewed to determine appropriate education?: Yes Instructions: ED Gastroenteritis Viral Prescriptions: Dicyclomine [Bentyl] 20 mg PO QID PRN #15 capsule PRN Reason: Abdominal Pain Loperamide [Imodium] 2 mg PO QID PRN #10 capsule PRN Reason: Diarrhea Ondansetron Odt [Zofran] 4 mg TL Q6H PRN #10 tablet PRN Reason: Nausea / Vomiting Comments: Return tomorrow midday or afternoon if not better, anytime if worse or if pain moved to the bottom right where I showed you. Forms: Activity restrictions
[2018-10-27 17:30] LABS: BILIRUBIN,URINE NEGATIVE (NEGATIVE); GLUCOSE, URINE (UA) NEGATIVE (NEGATIVE); KETONES,URINE (UA) NEGATIVE (NEGATIVE); LEUKOCYTE ESTERASE, URINE NEGATIVE (NEGATIVE); NITRITE,URINE NEGATIVE (NEGATIVE); OCCULT BLOOD,URINE SMALL (NEGATIVE); PH,URINE 7.5 PH (5.0-7.5); PROTEIN,URINE NEGATIVE (NEGATIVE); UROBILINOGEN,URINE 0.2 (NORMAL) E.U./dL (NORMAL)
[2018-10-27 17:35] LABS: ALBUMIN 4.4 g/dL (3.2-5.5); ALBUMIN/GLOBULIN RATIO 1.7 (1.0-2.2); BILIRUBIN,TOTAL 0.5 mg/dL (0.2-1.0); CALCIUM 9.1 mg/dL (8.5-10.3); CREATININE 0.7 mg/dL (0.4-1.0)
[2018-10-27 17:44] LABS: CLARITY,URINE SL. CLOUDY (CLEAR); HCG UR QUAL NEGATIVE
[2018-10-27 17:45] LABS: AMORPHOUS SEDIMENT,UR Moderate /LPF; BACTERIA,URINE None Seen /HPF (None Seen); RBC,URINE 0-5 /HPF (0-5); SQUAMOUS EPITHELIAL CELL,UR FEW Squamous (<= Few)
[2018-10-27] MEDS ORDERED: HYDROmorphone 1 MG/ML CARPUJECT IVP STA (18:02)
[2018-10-27] MEDS ORDERED: METOCLOPRAMIDE 10 MG/2 ML VIAL IVP STA (18:02)
[2018-10-27] MEDS ORDERED: SODIUM CHLORIDE 0.9% 1,000 ML IV ONE (18:20)
[2018-10-27] MEDS ORDERED: ONDANSETRON ODT 4 MG Prepack 2 TL STA (19:19)
[2018-10-27 19:49] VITALS: BP 94/56
== END 2018-10-27 19:48 | disposition home or self-care (01) ==
LOC: ED 16:29
DX: K52.9 Noninfective gastroenteritis and colitis, unspecified (principal); F17.200 Nicotine dependence, unspecified, uncomplicated
CPT/HCPCS: 36415; 80053; 81001; 81025; 83690; 96365; 96375; 99283; A9270; J1170; J2765; J7040; 81003; 87086

== ENCOUNTER 2018-11-20 15:02 | Outpatient (CLI) | payer MEDICAID | END 2018-11-20 15:03 | disposition EMS.NT | LOC: EMS 15:02 | PROVIDERS: ATTEND Surgery | DX: R55 Syncope and collapse (principal) ==

== ENCOUNTER 2018-11-20 15:07 | Observation (INO) | payer MEDICAID ==
[2018-11-20] MEDS ORDERED: SODIUM CHLORIDE 0.9% 1,000 ML IV ONE ×2 (15:22→16:22)
--- NOTE | 2018-11-20 15:26 | ED Physician Documentation ---
History of Present Illness - Stated complaint Stated Complaint: SYNCOPE - Chief complaint Chief Complaint: Trauma Hd/Nk - History obtained from History obtained from: Patient - History of Present Illness Timing: Yesterday Pain level max: 6 Pain level now: 6 Improved by: nothing Worsened by: nothing - Additonal information Additional information: 28-year-old female with nausea, vomiting diarrhea for the past week. She states had a syncopal event yesterday in her kitchen and another one today in the parking lot. She did strike her head. Did not take her factor. She is factor VIII deficient. Review of Systems Ten Systems: 10 systems reviewed and negative Constitutional: denies: Fever, Chills Nose: denies: Rhinorrhea / runny nose, Congestion Throat: denies: Sore throat Respiratory: denies: Cough GI: reports: Nausea, Vomiting, Diarrhea Skin: denies: Rash Musculoskeletal: denies: Neck pain, Back pain Neurologic: reports: Syncope (states passed out yesterday and today), Headache, Head injury. 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) : None HEENT: None Psych: Anxiety, Bipolar disorder Musculoskeletal: None Derm: None - Past Surgical History Past Surgical History: Yes /PRIVATE EQUITY ASSOCIATE: section - Present Medications Home Medications: Ambulatory Orders Medication Instructions Recorded Confirmed Albuterol 1 puffs INH BID 11/26/15 04/16/18 Albuterol Sulf [Ventolin Hfa 2 - 3 puffs INH Q4HR PRN #1 inhaler 07/11/18 Inhaler] Dicyclomine [Bentyl] 20 mg PO QID PRN #15 capsule 10/27/18 Loperamide [Imodium] 2 mg PO QID PRN #10 capsule 10/27/18 Ondansetron Odt [Zofran] 4 mg TL Q6H PRN #10 tablet 10/27/18 - Allergies Allergies/Adverse Reactions: Allergies Allergy/AdvReac Type Severity Reaction Status Date / Time amoxicillin [Amoxicillin] Allergy Rash Verified 10/27/18 16:45 benzocaine Allergy Anaphylaxis Verified 10/27/18 16:45 cefaclor [From Ceclor] Allergy Rash Verified 10/27/18 16:45 cephalexin monohydrate * Allergy Rash Verified 10/27/18 16:45 [From Keflex] clindamycin Allergy Rash Verified 10/27/18 16:45 codeine [Codeine] Allergy Rash Verified 10/27/18 16:45 doxycycline Allergy Rash Verified 10/27/18 16:45 morphine Allergy Rash Verified 10/27/18 16:45 NSAIDS (Non-Steroidal Allergy Unknown Verified 10/27/18 16:45 Anti-Inflamma Penicillins Allergy Rash Verified 10/27/18 16:45 - Social History Does the pt smoke?: Yes Smoking Status: Current every day smoker Does the pt drink ETOH?: No Does the pt have substance abuse?: No - Immunizations Immunizations are current?: Yes - POLST Patient has POLST: No PD ED PE NORMAL - Vitals Vital signs reviewed: Yes - General General: Alert and oriented X 3, No acute distress - HEENT HEENT: Atraumatic, PERRL, EOMI, Pharynx benign, Other (dry lips) - Neck Neck: Supple, no meningeal sign, No bony TTP - Cardiac Cardiac: RRR - Respiratory Respiratory: No respiratory distress, Clear bilaterally - Abdomen Abdomen: Soft, Non tender, Non distended - Back Back: No spinal TTP - Derm Derm: Warm and dry, No rash - Extremities Extremities: No tenderness to palpate, Normal ROM s pain, No edema - Neuro Neuro: Alert and oriented X 3, load builder 2-12 intact, No motor deficit, No sensory deficit, Normal speech - Psych Psych: Normal mood, Normal affect Results - Vitals Vitals: Vital Signs - 24 hr 11/20/18 11/20/18 11/20/18 15:10 15:46 16:20 Temperature 36.8 C Heart Rate 90 86 76 Respiratory 18 14 18 Rate Blood Pressure 121/84 H 113/84 H 124/82 H O2 Saturation 100 100 98 11/20/18 11/20/18 17:57 18:00 Temperature Heart Rate 73 81 Respiratory 17 17 Rate Blood Pressure 111/63 108/59 L O2 Saturation 96 98 Oxygen O2 Source Room air - EKG (time done) 1546 Rate: Rate (enter#) (80) Rhythm: NSR [place]: Normal Intervals: Normal GA QRS: Normal Ischemia: Normal ST segments - Labs Labs: Laboratory Tests 11/20/18 11/20/18 11/20/18 15:20 15:20 16:15 WBC 6.0 RBC 4.79 Hgb 14.7 Hct 44.5 MCV 92.9 MCH 30.7 MCHC 33.0 RDW 12.7 Plt Count 258 MPV 9.0 Neut # (Auto) 3.3 Lymph # (Auto) 2.3 [place] # (Auto) 0.3 Eos # (Auto) 0.1 Baso # (Auto) 0.1 Absolute Nucleated RBC 0.00 Nucleated RBC % 0.0 Sodium 140 Potassium 3.9 Chloride 103 Carbon Dioxide 24 Anion Gap 13.0 BUN 8 Creatinine 0.8 Estimated GFR (MDRD) 84 L Glucose 118 H Calcium 9.3 Phosphorus 3.2 Magnesium 1.9 Total Bilirubin 0.6 AST 18 ALT 13 Alkaline Phosphatase 40 L Total Protein 6.9 Albumin 4.5 Globulin 2.4 Albumin/Globulin Ratio 1.9 Lipase 26 Urine Color YELLOW Urine Clarity CLEAR Urine pH 7.5 Ur Specific [place] <=1.005 Urine Protein NEGATIVE Urine Glucose (UA) NEGATIVE Urine Ketones NEGATIVE Urine Occult Blood NEGATIVE Urine Nitrite NEGATIVE Urine Bilirubin NEGATIVE Urine Urobilinogen 0.2 (NORMAL) Ur Leukocyte Esterase NEGATIVE Ur Microscopic Review NOT INDICATED Urine Culture Comments NOT INDICATED Urine HCG, Qual NEGATIVE - Rads (name of study) head ct Radiology: Prelim report reviewed, EMP read contemporaneously, See rad report (No acute intracranial abnormality) PD MEDICAL DECISION MAKING - ED course Complexity details: reviewed results, re-evaluated patient, considered differential, d/w patient ED course: 28-year-old female presents to the emergency department with syncope. She had 2 more syncopal events while in the emergency department. She was off the mon itor both times. Once she had gone to the bathroom in her room. The second time she had prepped to the monitor leads off of her. She also ripped out her IV during her emergency department stay and refused to stay for further testing. The nurse and they both voiced concerns about her going home when she is passing out regularly. The patient eventually agreed to stay and will be placed in observation for syncope. Discussed the case with Dr. Carlos, hospitalist who accepts This document was made in part using voice recognition software. While efforts are made to proofread this document, sound alike and grammatical errors may occur. Departure - Departure Disposition: ED Place in Observation Clinical Impression: Viral gastroenteritis Syncope Qualifiers: Syncope type: unspecified Qualified Code(s): R55 - Syncope and collapse Head injury Qualifiers: Encounter type: initial encounter Qualified Code(s): S09.90XA - Unspecified injury of head, initial encounter Condition: Stable Discharge Date/Time: 11/20/18 21:21
[2018-11-20 15:32] LABS: BASOPHILS # (AUTO) 0.1 10^3/uL (0.0-0.1); BASOPHILS % (AUTO) 0.8 %; EOSINOPHILS # (AUTO) 0.1 10^3/uL (0.0-0.7); EOSINOPHILS % (AUTO) 1.8 %; HGB - HEMOGLOBIN 14.7 g/dL (12.0-16.0); LYMPHOCYTES # (AUTO) 2.3 10^3/uL (1.5-3.5); LYMPHOCYTES % (AUTO) 37.6 %; MEAN CORPUSCULAR HEMOGLOBIN 30.7 pg (27.0-31.0); MEAN CORPUSCULAR VOLUME 92.9 fL (81.0-99.0); MONOCYTES # (AUTO) 0.3 10^3/uL (0.0-1.0); NEUTROPHILS # (AUTO) 3.3 10^3/uL (1.5-6.6); NEUTROPHILS % (AUTO) 54.3 %; PLT - PLATELET COUNT 258 10^3/uL (130-450); RED BLOOD COUNT 4.79 10^6/uL (4.20-5.40); RED CELL DISTRIBUTION WIDTH 12.7 % (12.0-15.0)
[2018-11-20 15:47] LABS: ALBUMIN 4.5 g/dL (3.2-5.5); ALBUMIN/GLOBULIN RATIO 1.9 (1.0-2.2); BILIRUBIN,TOTAL 0.6 mg/dL (0.2-1.0); CALCIUM 9.3 mg/dL (8.5-10.3); CREATININE 0.8 mg/dL (0.4-1.0); MAGNESIUM 1.9 mg/dL (1.7-2.8); PHOSPHORUS 3.2 mg/dL (2.5-4.6); TOTAL PROTEIN 6.9 g/dL (6.7-8.2)
--- NOTE | 2018-11-20 16:00 | CT Report ---
Reason: fall, head injury Procedure Date: 11/20/2018 Accession Number: [id number] / [id number] Procedure: CT - HEAD WO CPT Code: FULL RESULT: CT HEAD WITHOUT CONTRAST INDICATION: 28 year-old female, has postsyncopal episode. The patient fell, sustaining injury to head. Please assess. TECHNIQUE: Sequential 5 mm axial images were obtained through the brain. In accordance with CT protocol optimization, one or more of the following dose reduction techniques were utilized for this exam: automated exposure control, adjustment of mA and/or KV based on patient size, or use of iterative reconstructive technique. COMPARISON: 05/22/2018. FINDINGS: No focal scalp hematoma is demonstrated. No skull or skull base fracture is identified. The middle ear cavities and mastoid air cells appear clear. The imaged paranasal sinuses are essentially clear. There is no intracranial hemorrhage or abnormal extra-axial fluid collection. No mass effect or midline shift. Attenuation of cortex and white matter is unremarkable. Ventricular size is normal. Noted is depression of the right zygomatic arch. This represents a new finding when compared to the head CT from 05/22/2018. The arch is incompletely assessed in the field of view provided. However, grossly this appears to represent the sequela of old healed fracture. No acute fracture is demonstrated in the field of view provided. IMPRESSION: 1. No acute intracranial pathology is demonstrated. In particular, no skull or skull base fracture is identified and there is no intracranial hemorrhage. 2. Depression of right zygomatic arch that is new when compared to head CT 05/22/2018. Evaluation is limited in the field of view provided; however, this most likely represents the sequela of old healed fracture. The possibility of acute fracture is considered unlikely. Clinical correlation advised.
[2018-11-20] MEDS: BUTALB/ACETAM/CAFF 50/325/40MG TABLET PO STA ×2 (16:14→16:45)
[2018-11-20] MEDS ORDERED: PROMETHAZINE INJ 25 MG in SODIUM CHLORIDE 0.9% 50 ML IV STA (16:23)
[2018-11-20] MEDS ORDERED: ACETAMINOPHEN 1,000 MG/100 ML 100 ML IV STA (16:23)
[2018-11-20 16:25] LABS: BILIRUBIN,URINE NEGATIVE (NEGATIVE); GLUCOSE, URINE (UA) NEGATIVE (NEGATIVE); KETONES,URINE (UA) NEGATIVE (NEGATIVE); LEUKOCYTE ESTERASE, URINE NEGATIVE (NEGATIVE); NITRITE,URINE NEGATIVE (NEGATIVE); OCCULT BLOOD,URINE NEGATIVE (NEGATIVE); PH,URINE 7.5 PH (5.0-7.5); PROTEIN,URINE NEGATIVE (NEGATIVE); UROBILINOGEN,URINE 0.2 (NORMAL) E.U./dL (NORMAL)
[2018-11-20 16:27] LABS: CLARITY,URINE CLEAR (CLEAR); HCG UR QUAL NEGATIVE
[2018-11-20] MEDS ORDERED: traMADol 50 MG TABLET PO SCH (22:00)
--- NOTE | 2018-11-20 22:47 | HISTORY & PHYSICAL EXAMINATION ---
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 She first began passing out one week ago. They began after she had flu-like symptoms that included nasal congestion, headaches, diarrhea, chest congestion. She was taking Dayquil and Emergen-C. She has been taking imodium as well but only twice a day for the diarrhea. The episode of syncope continued to occur throughout the week and she had one episode where she hit her head and when she woke up, she noticed her nose was bleeding and that she had small scalp hematoma. She did not take Factor VIII as she though the bleeding was not significant. She then began to develop headaches over the last few days. She took Tramadol and old Percocet with only minor relief. She reports the syncopal episodes only occur when she gets up from a sitting position and usually occur within a minute. She reports feeling a little confused after each episode. She denies chest pain but reports palpitations when the episodes occur. Denies any prior history of syncope or cardiac problems. She reports her flu-like symptoms have since resolved. She denies numbness or focal weaknesses but continues to feel general weakness. She is also complaining of a right breast mass for past three months. She reports it has doubled in size and is not painful. Her right nipple is inverted but that is not new and has been present for some time. She also complains of right breast discharge which is not new as well. Denies other breast changes. In the ER, workup was unremarkable including CT of the head. She had two further episodes while in the ER but unfortunately she was not on telemetry during either episode. History - Past Medical History Cardiovascular: reports: None Respiratory: reports: Asthma Neuro: reports: None Endocrine/Autoimmune: reports: None GI: reports: None REMOTE RECRUITER: reports: Miscarriage(s) : reports: None HEENT: reports: None Psych: reports: Anxiety, Bipolar disorder Musculoskeletal: reports: None Derm: reports: None MRSA Hx?: No Other Past Medical History: Hemophilia A - Past Surgical History /REMOTE RECRUITER: reports: section - Family & Social History Family History Comment/Other: Mother is currently hospitalized with multiple cardiac problems but she is unsure of what exactly. No other family history. Living arrangement: At home Living Situation: With family Social History Notes: She lives at home with and son. She smokes 6 cigarettes a day since she was 11. Denies illict drug use or alcohol. Recently starting vaping. - Substance History Use: Uses substance without health or social issues: Tobacco - POLST Patient has POLST: No Meds/Allgy - Home Medications Home Medications: Ambulatory Orders Medication Instructions Recorded Confirmed Albuterol 1 puffs INH BID 11/26/15 04/16/18 Albuterol Sulf [Ventolin Hfa 2 - 3 puffs INH Q4HR PRN #1 inhaler 07/11/18 Inhaler] Dicyclomine [Bentyl] 20 mg PO QID PRN #15 capsule 10/27/18 Loperamide [Imodium] 2 mg PO QID PRN #10 capsule 10/27/18 Ondansetron Odt [Zofran] 4 mg TL Q6H PRN #10 tablet 10/27/18 - Allergies Allergies/Adverse Reactions: Allergies Allergy/AdvReac Type Severity Reaction Status Date / Time amoxicillin [Amoxicillin] Allergy Rash Verified 10/27/18 16:45 benzocaine Allergy Anaphylaxis Verified 10/27/18 16:45 cefaclor [From Ceclor] Allergy Rash Verified 10/27/18 16:45 cephalexin monohydrate * Allergy Rash Verified 10/27/18 16:45 [From Keflex] clindamycin Allergy Rash Verified 10/27/18 16:45 codeine [Codeine] Allergy Rash Verified 10/27/18 16:45 doxycycline Allergy Rash Verified 10/27/18 16:45 morphine Allergy Rash Verified 10/27/18 16:45 NSAIDS (Non-Steroidal Allergy Unknown Verified 10/27/18 16:45 Anti-Inflamma Penicillins Allergy Rash Verified 10/27/18 16:45 Review of Systems - Constitutional Constitutional: reports: Fatigue, Weakness - Cardiovascular Cariovascular: reports: Palpitations, Lightheadedness, Syncope. denies: Chest pain - Respiratory Respiratory: denies: SOB at rest, SOB with exertion - Gastrointestinal Gastrointestinal: denies: Abdominal pain, Constipation, Diarrhea, Nausea, Vomiting - Musculoskeletal Musculoskeletal: denies: Muscle weakness - Neurological Neurological: reports: General weakness, Headache, Dizziness. denies: Focal weakness, Numbness - All Other Systems All Other Systems: reports: Reviewed and negative Prior Level of Functionality: Independent with ADL's. Exam - Vital Signs Reviewed Vital Signs: Yes Vital Signs: Vital Signs x48h Temp Pulse Pulse Resp BP BP Pulse Ox 11/20/18 21:00 36.8 C 61 18 105/73 99 11/20/18 18:00 81 17 108/59 L 98 11/20/18 17:57 73 17 111/63 96 11/20/18 16:20 76 18 124/82 H 98 11/20/18 15:46 86 14 113/84 H 100 11/20/18 15:10 36.8 C 90 18 121/84 H 100 - Physical Exam General Appearance: positive: No acute distress, Alert Eyes Bilateral: positive: Normal inspection, Conjunctivae nml ENT: positive: ENT inspection nml, No signs of dehydration. negative: Dry mucous membranes Neck: positive: Nml inspection Respiratory: positive: No respiratory distress, Breath sounds nml. negative: Wheezes, Rales, Rhonchi Cardiovascular: positive: Regular rate & rhythm, No murmur. negative: Irregularly irregular, Tachycardia, Bradycardia Skin: positive: Color nml, No rash, Warm, Dry, Other (She has a palpable right breast mass in the 10 o clock position. It is mobile without tenderness or erythema. The mass is approximately 4cm in size. Right nipple is inverted with out discharge. No peau d 'orange.). negative: Diaphoresis Extremities: positive: Non-tender Neurologic/Psychiatric: positive: Oriented x3, Motor nml, Sensation nml. negative: Disoriented to person, Disoriented to place, Disoriented to time, Weakness, Sensory loss, Slurred/abnml speech Conclusion/Plan - Problem List (1) Syncope Conclusion/Plan: I suspect that her syncope is likely related to orthostatic hypotension as it only occurs when she is getting up although arrhythmia will need to be ruled out. She is likely orthostatic from her recent flu and diarrhea along with poor oral intake. Her EKG shows sinus rhythm without prolonged QTc. CT head was unremarkable. - IV Hydration - Check orthostatics - Monitor on telemetry - Check Echo - Check urine drug screen Qualifiers: Syncope type: unspecified Qualified Code(s): R55 - Syncope and collapse (2) Breast mass Conclusion/Plan: She does have a breast mass and given the rate of growth, this will need to be evaluated on outpatient basis. - Outpatient breast US or mammogram. (3) Hemophilia A Conclusion/Plan: Stable. Hemoglobin is stable without signs of bleeding. - Lab Results Lab results reviewed: Yes Wilfrido Bones: 11/20/18 15:20 11/20/18 15:20 - Diagnostic Imaging Results Diagnostic Imaging Results: positive: Final report reviewed - EKG Results EKG Interpreted Independently: Yes EKG Findings: Sinus rhythm with no prolonged QT. Core Measures - Anticipated LOS I expect patient to be DC'd or transferred within 96 hours.: Yes - Issues Hospital Issues and Management Plan: Syncope. Monitor on tele and IV hydrate. Check ECHO - DVT/VTE - Prophylaxis VTE/DVT Device ordered at admit?: Yes VTE/DVT Prophylaxis med ordered at admit?: Yes
[2018-11-21] MEDS: SODIUM CHLORIDE FLUSH 0.9% 10 ML SYRINGE IVP SCH ×2 (01:00→09:23)
[2018-11-21] MEDS: SODIUM CHLORIDE FLUSH 0.9% 10 ML SYRINGE IVP PRN ×2 (01:17→06:21)
[2018-11-21] MEDS: SODIUM CHLORIDE 0.9% 1,000 ML IV SCH ×2 (01:17→13:32)
[2018-11-21] MEDS ORDERED: ONDANSETRON 4 MG/2 ML VIAL IVP PRN (06:08)
[2018-11-21 06:24] LABS: BASOPHILS % (AUTO) 0.5 %; EOSINOPHILS # (AUTO) 0.2 10^3/uL (0.0-0.7); EOSINOPHILS % (AUTO) 2.6 %; HGB - HEMOGLOBIN 13.1 g/dL (12.0-16.0); LYMPHOCYTES # (AUTO) 2.8 10^3/uL (1.5-3.5); LYMPHOCYTES % (AUTO) 48.2 %; MEAN CORPUSCULAR HEMOGLOBIN 30.8 pg (27.0-31.0); MEAN CORPUSCULAR HGB CONC 32.9 g/dL (32.0-36.0); MEAN CORPUSCULAR VOLUME 93.4 fL (81.0-99.0); MEAN PLATELET VOLUME 9.1 fL (7.9-10.8); MONOCYTES # (AUTO) 0.4 10^3/uL (0.0-1.0); MONOCYTES % (AUTO) 6.1 %; NEUTROPHILS # (AUTO) 2.4 10^3/uL (1.5-6.6); NEUTROPHILS % (AUTO) 42.1 %; PLT - PLATELET COUNT 208 10^3/uL (130-450); RED BLOOD COUNT 4.26 10^6/uL (4.20-5.40); RED CELL DISTRIBUTION WIDTH 12.6 % (12.0-15.0); WHITE BLOOD COUNT 5.7 x10^3/uL (4.8-10.8)
[2018-11-21 06:32] LABS: CALCIUM 8.2 mg/dL (8.5-10.3); CREATININE 0.7 mg/dL (0.4-1.0)
[2018-11-21 08:55] LABS: MUDS CUTOFF CONCENTRATIONS CUTOFF CONC BELOW:
[2018-11-21 09:20] LABS: AMPHETAMINE SCREEN,URINE POSITIVE (NEGATIVE); BENZODIAZEPINES SCREEN, URINE NEGATIVE (NEGATIVE); COCAINE SCREEN URINE NEGATIVE (NEGATIVE); METHADONE SCREEN, URINE NEGATIVE (NEGATIVE); METHAMPHETAMINES SCREEN, URINE NEGATIVE (NEGATIVE); OPIATE SCREEN, URINE NEGATIVE (NEGATIVE); OXYCODONE SCREEN, URINE NEGATIVE (NEGATIVE); PROPOXYPHENE SCREEN, URINE NEGATIVE (NEGATIVE); TRICYCLIC ANTIDEPRESSANT,URINE NEGATIVE (NEGATIVE)
[2018-11-21] MEDS ORDERED: traMADol 50 MG TABLET PO PRN (11:35)
--- NOTE | 2018-11-21 12:22 | Ultrasound Report ---
Reason: syncope Procedure Date: 11/21/2018 Accession Number: [id number] / [id number] Procedure: US - Carotid Doppler Complete CPT Code: FULL RESULT: EXAM: BILATERAL CAROTID AND VERTEBRAL ARTERY DUPLEX DOPPLER ULTRASOUND: EXAM DATE: 11/21/2018 10:37 AM CLINICAL HISTORY: Syncope. COMPARISON: None. TECHNIQUE: Grayscale imaging, color Doppler, and duplex spectral Doppler were used to evaluate the carotid and vertebral arteries bilaterally. Static images were obtained. FINDINGS: Spectral waveforms throughout the sampled arteries demonstrate preserved brisk systolic upstrokes with increased diastolic component in the proximal right internal carotid artery compared to the right common carotid artery, a pattern repeated symmetrically on the left side which can be seen with aortic regurgitation. There is bilateral intimal thickening. No significant plaque is identified in the right or left common or internal carotid arteries. Antegrade flow is present in bilateral vertebral arteries. VELOCITIES (cm/sec): VELOCITIES: Right CCA mid: PSV 91.7 cm/sec CCA dist: PSV 74.4 cm/sec ICA prox: PSV 63.8 cm/sec, EDV 31 cm/sec ICA mid: PSV 78.5 cm/sec, EDV 36 cm/sec ICA dist: PSV 83.3 cm/sec, EDV 41 cm/sec ECA: PSV 86 cm/sec Vert: PSV 48 cm/sec ICA/CCA: 0.90 Left CCA mid: PSV 96 cm/sec CCA dist: PSV 57 cm/sec ICA prox: PSV 55.3 cm/sec, EDV 22 cm/sec ICA mid: PSV 68.9 cm/sec, EDV 31 cm/sec ICA dist: PSV 88.8 cm/sec, EDV 37 cm/sec ECA: PSV 65 cm/sec Vert: PSV 47 cm/sec ICA/CCA: 0.92 ICA diameter stenosis: Right: <50% by velocity and <70% by NASCET criteria. Left: <50% by velocity and <70% by NASCET criteria. IMPRESSION: 1. No significant bilateral carotid artery plaquing. 2. In the right carotid artery there are no elevated carotid artery velocities to suggest hemodynamically significant stenosis. 3. In the left carotid artery there are no elevated carotid artery velocities to suggest hemodynamically significant stenosis. 4. Normal antegrade flow is present in bilateral vertebral arteries. 5. Question aortic valve regurgitation. General Recommendations: Stenosis =50% ICA - Follow-up ultrasound 6-12 months Stenosis <50% ICA - High Risk Patient with plaque - Follow-up ultrasound 1-2 years Normal Study but High Risk Patient - Follow-up ultrasound 3-5 years Management recommendations and diagnostic criteria are based on current IAC endorsed standards in Carotid Artery Stenosis: Grayscale and Doppler Ultrasound Diagnosis. Validated velocity measurements with angiographic measurements and velocity criteria are extrapolated from diameter data as defined by the Society of Radiologists in Ultrasound Consensus Conference Radiology 2003; 229;340-346. RADIA
[2018-11-21] MEDS ORDERED: ALBUTEROL NEB 2.5 MG/3 ML INH PRN (13:42)
--- NOTE | 2018-11-21 14:33 | Discharge Plan ---
Discharge Plan Problem Reviewed?: Yes Disposition: Home, Self Care Condition: Poor Diet: Regular Activity Restrictions: Activity as Tolerated Shower Restrictions: Yes (fall precaution) Instruction Topics: Syncope Health Concerns: syncope Plan of Treatment: your tests include CT of head, US of Carotid, ECHO, EKG and orthostatic BP all are unremarkable. Concern your dehydration. Please keep your hydration, slowly standup and fall precaution Care Goals: stabilization of your medical conditions Assessment: assessment as the above Additional Instructions or Follow Up instructions: you may followup your PCP in one week. Should your symptoms return or worsen, y ou may present ER, call 911 for help No Smoking: If you smoke, Please STOP! Call for help.
--- NOTE | 2018-11-21 15:41 | DISCHARGE SUMMARY ---
Discharge Summary Discharge Date: 11/21/18 Discharging Provider: CHILDRESS Condition at Discharge: Poor Discharge Disposition: 01 Home, Self Care Discharge Facility Name: home - DIAGNOSES Admission Diagnoses: (1) Syncope (2) Breast mass (3) Hemophilia A Discharge Diagnoses with Status of Each Condition: (1) Syncope stable (2) Breast mass stable, advise pt followup PCP and oncologist (3) Hemophilia A stable (4) illicit drug abuse advise pt quit - HPI History of Present Illness: refer from Dr. 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 She first began passing out one week ago. They began after she had flu-like symptoms that included nasal congestion, headaches, diarrhea, chest congestion. She was taking Dayquil and Emergen-C. She has been taking imodium as well but only twice a day for the diarrhea. The episode of syncope continued to occur throughout the week and she had one episode where she hit her head and when she woke up, she noticed her nose was bleeding and that she had small scalp hematoma. She did not take Factor VIII as she though the bleeding was not significant. She then began to develop headaches over the last few days. She took Tramadol and old Percocet with only minor relief. She reports the syncopal episodes only occur when she gets up from a sitting position and usually occur within a minute. She reports f eeling a little confused after each episode. She denies chest pain but reports palpitations when the episodes occur. Denies any prior history of syncope or cardiac problems. She reports her flu-like symptoms have since resolved. She denies numbness or focal weaknesses but continues to feel general weakness. She is also complaining of a right breast mass for past three months. She reports it has doubled in size and is not painful. Her right nipple is inverted but that is not new and has been present for some time. She also complains of right breast discharge which is not new as well. Denies other breast changes. In the ER, workup was unremarkable including CT of the head. She had two further episodes while in the ER but unfortunately she was not on telemetry during either episode. - HOSPITAL COURSE Hospital Course: pt was admitted for syncope. pt had ECHO, EKG, US of Carotid, CT of head which all were unremarkable. UDS test reveal pt is positive for Amphetamine and THC. After hydration, pt state she feel much better, no more syncope, she is happy to be d/c to home. the detail hospital course is as the below: (1) Syncope pt had ECHO, EKG, US of Carotid, CT of head which all were unremarkable. UDS test reveal pt is positive for Amphetamine and THC. After hydration, pt state she feel much better, no more syncope. The etiology of syncope is not clear, it maybe combination of dehydration and illicit drug withdrawal (2) Breast mass pt has a breast mass and given the rate of growth, pt know this condition. Advise pt followup PCP to do Outpatient breast US or mammogram, followup out-pt oncologist as needed. (3) Hemophilia A Stable. Hemoglobin is stable without signs of bleeding. (4) illicit drug abuse UDS test reveal pt is positive for Amphetamine and THC. advise pt quit - ALLERGIES Allergies/Adverse Reactions: Allergies Allergy/AdvReac Type Severity Reaction Status Date / Time amoxicillin [Amoxicillin] Allergy Rash Verified 10/27/18 16:45 benzocaine Allergy Anaphylaxis Verified 10/27/18 16:45 cefaclor [From Ceclor] Allergy Rash Verified 10/27/18 16:45 cephalexin monohydrate * Allergy Rash Verified 10/27/18 16:45 [From Keflex] clindamycin Allergy Rash Verified 10/27/18 16:45 codeine [Codeine] Allergy Rash Verified 10/27/18 16:45 doxycycline Allergy Rash Verified 10/27/18 16:45 morphine Allergy Rash Verified 10/27/18 16:45 NSAIDS (Non-Steroidal Allergy Unknown Verified 10/27/18 16:45 Anti-Inflamma Penicillins Allergy Rash Verified 10/27/18 16:45 - MEDICATIONS Home Medications: Ambulatory Orders Medication Instructions Recorded Confirmed Albuterol Sulfate [Albuterol 2 puffs INH Q4H PRN 11/21/18 11/21/18 Sulfate Hfa] Fluticasone Propionate [Flovent 2 puffs INH BID 11/21/18 11/21/18 Diskus] Fluticasone/Salmeterol [Advair 2 puffs INH BID 11/21/18 11/21/18 250-50 Diskus] - PHYSICAL EXAM AT DISCHARGE General Appearance: positive: No acute distress, Alert. negative: Lethargic Eyes Bilateral: positive: Normal inspection, PERRL, No lid inflammation, Conjunctivae nml ENT: positive: ENT inspection nml, Pharynx nml, No signs of dehydration. negative: Purulent nasal drainage, Pharyngeal erythema, Oral lesions Neck: positive: Nml inspection, Thyroid nml, No JVD, Trachea midline. negative: Thyromegaly, Lymphadenopathy (R), Lymphadenopathy (L), Stiff neck, Swelling/bruising, Tracheal deviation Respiratory: positive: Chest non-tender, No respiratory distress, Breath sounds nml. negative: Wheezes, Rales, Rhonchi Cardiovascular: positive: Regular rate & rhythm, No murmur, No gallop. negative: Irregularly irregular, Extrasystoles, Tachycardia, Bradycardia, JVD present, Systolic murmur, Diastolic murmur Peripheral Pulses: positive: 2+ Abdomen: positive: Non-tender, No organomegaly, Nml bowel sounds, No distention. negative: Tenderness, Guarding, Rebound Back: positive: Nml inspection. negative: CVA tenderness (R), CVA tenderness (L) Skin: positive: Color nml, No rash, Warm, Dry. negative: Cyanosis, Diaphoresis, Pallor Extremities: positive: Non-tender, Full ROM, Nml appearance. negative: Calf tenderness, Joint swelling, Richar's sign/cords Neurologic/Psychiatric: positive: Oriented x3, Motor nml, Sensation nml, Mood/affect nml. negative: Weakness, Sensory loss, Facial droop, Slurred/abnml speech, Depressed mood/affect - LABS Result Diagrams: 11/21/18 06:10 11/21/18 06:10 - FOLLOW UP Follow Up: you may followup your PCP in one week. Should your symptoms return or worsen, you may present ER, call 911 for help pt has a breast mass and given the rate of growth, pt know this condition. Advise pt followup PCP to do Outpatient breast US or mammogram, followup out-pt oncologist as needed. ( document in the addendum) - TIME SPENT Time Spent in Discharge (Minutes): 50
[2018-11-21 16:10] VITALS: BP 118/84
[2018-11-21] MEDS ORDERED: BUDESONIDE 0.5 MG/2 ML NEB INH SCH (19:00)
[2018-11-21] MEDS ORDERED: FORMOTEROL FUMARATE NEB 20 MCG/2 ML INH SCH (19:00)
== END 2018-11-21 16:37 | disposition home or self-care (01) ==
LOC: ED 15:07 → MS3 20:13
PROVIDERS: ADMIT Internal Medicine; ATTEND Nurse Practitioner Gerontology
DX: R55 Syncope and collapse (principal); N63.10 Unspecified lump in the right breast, unspecified quadrant; D66 Hereditary factor VIII deficiency; N64.52 Nipple discharge; F15.10 Other stimulant abuse, uncomplicated; S06.9X9A Unspecified intracranial injury with loss of consciousness of unspecified duration, initial encounter; F17.210 Nicotine dependence, cigarettes, uncomplicated; F31.9 Bipolar disorder, unspecified; W18.30XA Fall on same level, unspecified, initial encounter
CPT/HCPCS: 36415; 70450; 80048; 80053; 80306; 81003; 81025; 83690; 83735; 84100; 85025; 93005; 93306; 93880; 96361; 96365; 96368; 96375; 99285; A9270; G0378; J0131; J7040; 81001; 87086

== ENCOUNTER 2019-09-09 11:11 | Outpatient (CLI) | payer OTHER, MEDICAID | END 2019-09-09 11:12 | disposition critical access hospital (66) | LOC: EMS 11:11 | PROVIDERS: ATTEND Surgery | DX: S09.90XA Unspecified injury of head, initial encounter (principal); Y04.8XXA Assault by other bodily force, initial encounter | CPT/HCPCS: A0425; A0429 ==

== ENCOUNTER 2019-09-09 11:35 | Emergency (ER) | payer OTHER, MEDICAID ==
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
[2019-09-09] MEDS ORDERED: HYDROcod/ACETAM 5/325 MG TABLET PO STA (14:08)
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
[2019-09-09 14:48] VITALS: BP 107/81
== END 2019-09-09 14:48 | disposition home or self-care (01) ==
LOC: EDUNIT# → ED 11:35
DX: T74.11XA Adult physical abuse, confirmed, initial encounter (principal); S09.90XA Unspecified injury of head, initial encounter; S00.03XA Contusion of scalp, initial encounter; S00.531A Contusion of lip, initial encounter; Y04.8XXA Assault by other bodily force, initial encounter; Y07.01 Husband, perpetrator of maltreatment and neglect; Y92.009 Unspecified place in unspecified non-institutional (private) residence as the place of occurrence of the external cause; F17.200 Nicotine dependence, unspecified, uncomplicated
CPT/HCPCS: 36415; 70450; 72125; 84702; 99284; A9270

== ENCOUNTER 2019-09-22 20:33 | Emergency (ER) | payer MEDICAID, OTHER ==
[2019-09-22 20:48] LABS: BILIRUBIN,URINE NEGATIVE (NEGATIVE); GLUCOSE, URINE (UA) NEGATIVE (NEGATIVE); KETONES,URINE (UA) NEGATIVE (NEGATIVE); LEUKOCYTE ESTERASE, URINE TRACE (NEGATIVE); NITRITE,URINE NEGATIVE (NEGATIVE); OCCULT BLOOD,URINE NEGATIVE (NEGATIVE); PH,URINE 7.5 PH (5.0-7.5); PROTEIN,URINE NEGATIVE (NEGATIVE); UROBILINOGEN,URINE 0.2 (NORMAL) E.U./dL (NORMAL)
[2019-09-22 20:50] LABS: CLARITY,URINE HAZY (CLEAR); HCG UR QUAL POSITIVE
[2019-09-22 20:54] LABS: BACTERIA,URINE Many /HPF (None Seen); RBC,URINE 0-5 /HPF (0-5); SQUAMOUS EPITHELIAL CELL,UR MANY Squamous (<= Few)
[2019-09-22 21:09] LABS: BASOPHILS # (AUTO) 0.1 10^3/uL (0.0-0.1); BASOPHILS % (AUTO) 0.5 %; EOSINOPHILS # (AUTO) 0.1 10^3/uL (0.0-0.7); EOSINOPHILS % (AUTO) 0.4 %; HGB - HEMOGLOBIN 9.7 g/dL (12.0-16.0); LYMPHOCYTES # (AUTO) 1.7 10^3/uL (1.5-3.5); LYMPHOCYTES % (AUTO) 13.1 %; MEAN CORPUSCULAR HEMOGLOBIN 30.1 pg (27.0-31.0); MEAN CORPUSCULAR HGB CONC 31.6 g/dL (32.0-36.0); MEAN CORPUSCULAR VOLUME 95.3 fL (81.0-99.0); MEAN PLATELET VOLUME 8.4 fL (7.9-10.8); MONOCYTES # (AUTO) 0.6 10^3/uL (0.0-1.0); MONOCYTES % (AUTO) 4.3 %; NEUTROPHILS # (AUTO) 10.1 10^3/uL (1.5-6.6); NEUTROPHILS % (AUTO) 78.7 %; PLT - PLATELET COUNT 255 10^3/uL (130-450); RED BLOOD COUNT 3.22 10^6/uL (4.20-5.40); RED CELL DISTRIBUTION WIDTH 13.7 % (12.0-15.0); WHITE BLOOD COUNT 12.8 x10^3/uL (4.8-10.8)
--- NOTE | 2019-09-22 21:14 | ED Physician Documentation ---
PD HPI FEMALE - Stated complaint Stated Complaint: FEMALE - Chief complaint Chief Complaint: Abd Pain - History obtained from History obtained from: Patient - History of Present Illness Timing - onset: Today Timing - duration: Days (1) Timing - details: Abrupt onset Pain level max: 1 Pain level max: 1 Associated symptoms: Vaginal bleeding (spotting). No: Fever, Abdominal pain, Back pain, Vaginal pain, Vaginal discharge Contributing factors: OB-REST ROOM MATRON History: G (5), P (2) Recently seen: Not recently seen - Additional information Additional information: blood type is O negative. Review of Systems Constitutional: denies: Fever, Chills Throat: denies: Sore throat Respiratory: denies: Cough GI: denies: Nausea, Vomiting, Diarrhea Skin: denies: Rash Neurologic: denies: Headache PD PAST MEDICAL HISTORY - Past Medical History Past Medical History: Yes Cardiovascular: None Respiratory: Asthma Neuro: None Endocrine/Autoimmune: None GI: None REST ROOM MATRON: Miscarriage(s) : None HEENT: None Psych: Anxiety, Bipolar disorder Musculoskeletal: None Derm: None Other Past Medical History: Hemophilia A - Past Surgical History Past Surgical History: Yes /REST ROOM MATRON: section - Present Medications Home Medications: Ambulatory Orders Medication Instructions Recorded Confirmed Factor Viii 09/09/19 - Allergies Allergies/Adverse Reactions: Allergies Allergy/AdvReac Type Severity Reaction Status Date / Time amoxicillin [Amoxicillin] Allergy Rash Verified 09/22/19 20:40 benzocaine Allergy Anaphylaxis Verified 09/22/19 20:40 cefaclor [From Ceclor] Allergy Rash Verified 09/22/19 20:40 cephalexin monohydrate * Allergy Rash Verified 09/22/19 20:40 [From Keflex] clindamycin Allergy Rash Verified 09/22/19 20:40 codeine [Codeine] Allergy Rash Verified 09/22/19 20:40 doxycycline Allergy Rash Verified 09/22/19 20:40 morphine Allergy Rash Verified 09/22/19 20:40 NSAIDS (Non-Steroidal Allergy Unknown Verified 09/22/19 20:40 Anti-Inflamma Penicillins Allergy Rash Verified 09/22/19 20:40 cillins Allergy Unknown Uncoded 09/22/19 20:40 - Social History Does the pt smoke?: Yes Smoking Status: Current every day smoker Does the pt drink ETOH?: No Does the pt have substance abuse?: No - Immunizations Immunizations are current?: Yes - POLST Patient has POLST: No PD ED PE NORMAL - Vitals Vital signs reviewed: Yes - General General: Alert and oriented X 3, No acute distress - HEENT HEENT: Moist mucous membranes - Neck Neck: Supple, no meningeal sign - Cardiac Cardiac: RRR - Respiratory Respiratory: No respiratory distress, Clear bilaterally - Abdomen Abdomen: Soft, Non tender, Non distended - Derm Derm: Warm and dry - Extremities Extremities: No edema, No calf tenderness / cord - Neuro Neuro: Alert and oriented X 3 Results - Vitals Vitals: Vital Signs - 24 hr 09/22/19 20:35 Temperature 36.7 C Heart Rate 107 H Respiratory 18 Rate Blood Pressure 122/74 O2 Saturation 100 Oxygen O2 Source Room air - Labs Labs: Laboratory Tests 09/22/19 09/22/19 09/22/19 20:37 21:04 21:04 WBC 12.8 H RBC 3.22 L Hgb 9.7 L Hct 30.7 L MCV 95.3 MCH 30.1 MCHC 31.6 L RDW 13.7 Plt Count 255 MPV 8.4 Neut # (Auto) 10.1 H Lymph # (Auto) 1.7 [place] # (Auto) 0.6 Eos # (Auto) 0.1 Baso # (Auto) 0.1 Absolute Nucleated RBC 0.00 Nucleated RBC % 0.0 Sodium 136 Potassium 3.7 Chloride 102 Carbon Dioxide 26 Anion Gap 8.0 BUN 11 Creatinine 0.5 Estimated GFR (MDRD) 144 Glucose 74 Calcium 8.4 L Total Bilirubin 0.4 AST 21 ALT 28 Alkaline Phosphatase 42 Total Protein 6.0 L Albumin 3.0 L Globulin 3.0 Albumin/Globulin Ratio 1.0 Lipase 32 HCG, Quant Urine Color YELLOW Urine Clarity HAZY Urine pH 7.5 Ur Specific [place] 1.015 Urine Protein NEGATIVE Urine Glucose (UA) NEGATIVE Urine Ketones NEGATIVE Urine Occult Blood NEGATIVE Urine Nitrite NEGATIVE Urine Bilirubin NEGATIVE Urine Urobilinogen 0.2 (NORMAL) Ur Leukocyte Esterase TRACE H Urine RBC 0-5 Urine WBC 11-25 H Ur Squamous Epith Cells MANY Squamous H Urine Bacteria Many H Ur Microscopic Review INDICATED Urine Culture Comments NOT INDICATED Urine HCG, Qual POSITIVE 09/22/19 21:04 WBC RBC Hgb Hct MCV MCH MCHC RDW Plt Count MPV Neut # (Auto) Lymph # (Auto) [place] # (Auto) Eos # (Auto) Baso # (Auto) Absolute Nucleated RBC Nucleated RBC % Sodium Potassium Chloride Carbon Dioxide Anion Gap BUN Creatinine Estimated GFR (MDRD) Glucose Calcium Total Bilirubin AST ALT Alkaline Phosphatase Total Protein Albumin Globulin Albumin/Globulin Ratio Lipase HCG, Quant 34188.00 Urine Color Urine Clarity Urine pH Ur Specific [place] Urine Protein Urine Glucose (UA) Urine Ketones Urine Occult Blood Urine Nitrite Urine Bilirubin Urine Urobilinogen Ur Leukocyte Esterase Urine RBC Urine WBC Ur Squamous Epith Cells Urine Bacteria Ur Microscopic Review Urine Culture Comments Urine HCG, Qual - Rads (name of study) OB US Radiology: Prelim report reviewed, EMP read contemporaneously, See rad report PD MEDICAL DECISION MAKING - ED course Complexity details: reviewed results, re-evaluated patient, considered differential, d/w patient ED course: 29-year-old female presents to the emergency department vaginal bleeding today. She is approximately 20 weeks by bedside ultrasound. heart rate of 158 bpm. Formal ultrasound was ordered. Discussed the case with Dr. Nascimento, OB on-call who recommends RhoGam. This was given to the patient. We will also treat her for UTI. Given Macrobid. Patient will be signed out to the oncoming emergency department physician awaiting final disposition after the ultrasound is performed. Departure - Departure Clinical Impression: Intrauterine UTI (urinary tract infection) Qualifiers: Urinary tract infection type: acute cystitis Hematuria presence: without hematuria Qualified Code(s): N30.00 - Acute cystitis without hematuria Condition: Good
[2019-09-22 21:21] LABS: BILIRUBIN,TOTAL 0.4 mg/dL (0.2-1.0); CALCIUM 8.4 mg/dL (8.5-10.3); CREATININE 0.5 mg/dL (0.4-1.0)
[2019-09-22] MEDS ORDERED: RHO(D) IMMUNE GLOBULIN 300 MCG SYRINGE IM STA (21:49)
[2019-09-22] MEDS ORDERED: NITROFURANTOIN MACRO 100 MG CAPSULE PO STA (21:52)
--- NOTE | 2019-09-22 23:55 | ED Physician Documentation ---
PD HPI FEMALE - Stated complaint Stated Complaint: FEMALE - Chief complaint Chief Complaint: Abd Pain - History obtained from History obtained from: Patient (Patient was signed out to me at shift change by Dr. Tomi Telles. Please see his complete history and physical for complete details.) Review of Systems Constitutional: reports: Reviewed and negative Eyes: reports: Reviewed and negative Ears: reports: Reviewed and negative Nose: reports: Reviewed and negative Throat: reports: Reviewed and negative Cardiac: reports: Reviewed and negative Respiratory: reports: Reviewed and negative GI: reports: Reviewed and negative : reports: Vaginal bleeding Skin: reports: Reviewed and negative Musculoskeletal: reports: Reviewed and negative Neurologic: reports: Reviewed and negative Psychiatric: reports: Reviewed and negative Endocrine: reports: Reviewed and negative Immunocompromised: reports: Reviewed and negative PD PAST MEDICAL HISTORY - Past Medical History Past Medical History: Yes Cardiovascular: None Respiratory: Asthma Neuro: None Endocrine/Autoimmune: None GI: None 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(s) : None HEENT: None Psych: Anxiety, Bipolar disorder Musculoskeletal: None Derm: None Other Past Medical History: Hemophilia A - Past Surgical History Past Surgical History: Yes /COMMERCIAL LINES ACCOUNT EXECUTIVE: section - Present Medications Home Medications: Ambulatory Orders Medication Instructions Recorded Confirmed Factor Viii 09/09/19 Nitrofurantoin Monohyd/M-Cryst 100 mg PO BID #5 capsule 09/22/19 [Macrobid 100 mg Capsule] - Allergies Allergies/Adverse Reactions: Allergies Allergy/AdvReac Type Severity Reaction Status Date / Time amoxicillin [Amoxicillin] Allergy Rash Verified 09/22/19 20:40 benzocaine Allergy Anaphylaxis Verified 09/22/19 20:40 cefaclor [From Ceclor] Allergy Rash Verified 09/22/19 20:40 cephalexin monohydrate * Allergy Rash Verified 09/22/19 20:40 [From Keflex] clindamycin Allergy Rash Verified 09/22/19 20:40 codeine [Codeine] Allergy Rash Verified 09/22/19 20:40 doxycycline Allergy Rash Verified 09/22/19 20:40 morphine Allergy Rash Verified 09/22/19 20:40 NSAIDS (Non-Steroidal Allergy Unknown Verified 09/22/19 20:40 Anti-Inflamma Penicillins Allergy Rash Verified 09/22/19 20:40 cillins Allergy Unknown Uncoded 09/22/19 20:40 - Social History Does the pt smoke?: Yes Smoking Status: Current every day smoker Does the pt drink ETOH?: No Does the pt have substance abuse?: No - Immunizations Immunizations are current?: Yes - POLST Patient has POLST: No PD ED PE NORMAL - Vitals Vital signs reviewed: Yes - General General: Alert and oriented X 3, No acute distress - HEENT HEENT: PERRL - Neck Neck: Supple, no meningeal sign - Cardiac Cardiac: RRR, No murmur - Respiratory Respiratory: Clear bilaterally - Abdomen Abdomen: Normal bowel sounds, Soft, Non tender, Non distended - Derm Derm: Warm and dry - Extremities Extremities: No deformity - Neuro Neuro: Alert and oriented X 3 - Psych Psych: Normal mood, Normal affect Results - Vitals Vitals: Vital Signs - 24 hr 09/22/19 20:35 Temperature 36.7 C Heart Rate 107 H Respiratory 18 Rate Blood Pressure 122/74 O2 Saturation 100 Oxygen O2 Source Room air - Labs Labs: Laboratory Tests 09/22/19 09/22/19 09/22/19 20:37 21:04 21:04 WBC 12.8 H RBC 3.22 L Hgb 9.7 L Hct 30.7 L MCV 95.3 MCH 30.1 MCHC 31.6 L RDW 13.7 Plt Count 255 MPV 8.4 Neut # (Auto) 10.1 H Lymph # (Auto) 1.7 [place] # (Auto) 0.6 Eos # (Auto) 0.1 Baso # (Auto) 0.1 Absolute Nucleated RBC 0.00 Nucleated RBC % 0.0 Sodium 136 Potassium 3.7 Chloride 102 Carbon Dioxide 26 Anion Gap 8.0 BUN 11 Creatinine 0.5 Estimated GFR (MDRD) 144 Glucose 74 Calcium 8.4 L Total Bilirubin 0.4 AST 21 ALT 28 Alkaline Phosphatase 42 Total Protein 6.0 L Albumin 3.0 L Globulin 3.0 Albumin/Globulin Ratio 1.0 Lipase 32 HCG, Quant Urine Color YELLOW Urine Clarity HAZY Urine pH 7.5 Ur Specific [place] 1.015 Urine Protein NEGATIVE Urine Glucose (UA) NEGATIVE Urine Ketones NEGATIVE Urine Occult Blood NEGATIVE Urine Nitrite NEGATIVE Urine Bilirubin NEGATIVE Urine Urobilinogen 0.2 (NORMAL) Ur Leukocyte Esterase TRACE H Urine RBC 0-5 Urine WBC 11-25 H Ur Squamous Epith Cells MANY Squamous H Urine Bacteria Many H Ur Microscopic Review INDICATED Urine Culture Comments NOT INDICATED Urine HCG, Qual POSITIVE 09/22/19 21:04 WBC RBC Hgb Hct MCV MCH MCHC RDW Plt Count MPV Neut # (Auto) Lymph # (Auto) [place] # (Auto) Eos # (Auto) Baso # (Auto) Absolute Nucleated RBC Nucleated RBC % Sodium Potassium Chloride Carbon Dioxide Anion Gap BUN Creatinine Estimated GFR (MDRD) Glucose Calcium Total Bilirubin AST ALT Alkaline Phosphatase Total Protein Albumin Globulin Albumin/Globulin Ratio Lipase HCG, Quant 05701.00 Urine Color Urine Clarity Urine pH Ur Specific [place] Urine Protein Urine Glucose (UA) Urine Ketones Urine Occult Blood Urine Nitrite Urine Bilirubin Urine Urobilinogen Ur Leukocyte Esterase Urine RBC Urine WBC Ur Squamous Epith Cells Urine Bacteria Ur Microscopic Review Urine Culture Comments Urine HCG, Qual PD MEDICAL DECISION MAKING - ED course Complexity details: re-evaluated patient, d/w patient, other (Formal ultrasound shows a single live intrauterine estimated 19 weeks 2 days no apparent complications.) Departure - Departure Disposition: 01 Home, Self Care Clinical Impression: Intrauterine , Asymptomatic bacteriuria during UTI (urinary tract infection) Qualifiers: Urinary tract infection type: acute cystitis Hematuria presence: without hematuria Qualified Code(s): N30.00 - Acute cystitis without hematuria Condition: Stable Instructions: ED Care, ED UTI Cystitis Female Follow-Up: Ivan Mtz MD [Provider Admit Priv/Credential] - Prescriptions: Nitrofurantoin Monohyd/M-Cryst [Macrobid 100 mg Capsule] 100 mg PO BID #5 capsule Comments: Take antibiotic as directed. Follow-up with your LOADER as directed.
[2019-09-23 00:02] VITALS: BP 120/70
--- NOTE | 2019-09-23 08:07 | Ultrasound Report ---
Reason: preg VB, 18-20 weeks preg? Procedure Date: 09/22/2019 Accession Number: [id number] / [id number] Procedure: US - OB Limited CPT Code: Final Report FULL RESULT: PROCEDURE: OB Limited INDICATIONS: preg VB, 18-20 weeks preg? OUTSIDE/PRIOR DATING DATA: Last menstrual period (LMP): Unknown. LMP-based estimated date of delivery ([facility]IA): Unknown. First dating scan (date and location): 08/22/2019. Estimated date of delivery (KAIA) from first dating scan: 02/14/2020. TECHNIQUE: Real-time scanning was performed of the fetus, with image documentation. COMPARISON: None. FINDINGS: A single living intrauterine gestation is present. Presentation: Variable Placenta: Placental position is anterior, without previa. Amniotic fluid index: 16.4 cm, within normal limits for gestational age. Largest pocket measures 4.6 cm heart rate: 157 beats per minutes. Maternal cervical canal: 3.8 cm long; normal length is 2.5 cm or more. Estimated gestational age from initial scan/today: 19 weeks 2 days. BPD: 4.6 cm 20 weeks 0 days Head circumference: 16.3 cm 19 weeks 1 day Abdominal circumference: 13.8 cm 19 weeks 2 days Femur length: 2.7 cm 18 weeks 3 days weight: 2 65 g Umbilical artery systolic to diastolic ratio: 4.56 Incidental note of slight prominence of both the right and left renal pelvis measuring 5.6 mm and 4.0 mm respectively. IMPRESSION: 1. Single live intrauterine with ultrasound gestational age today of 19 weeks 2 days with ultrasound KAIA of 02/14/2020. 2. Recommend follow-up imaging at 20-22 weeks for dates and anatomy. The above findings are concordant with preliminary report. Reviewed by: Anju Sierra MD on 09/23/2019 8:06 AM PDT Approved by: Anju Sierra MD on 09/23/2019 8:06 AM PDT Station ID: [id number]
== END 2019-09-23 00:01 | disposition home or self-care (01) ==
LOC: ED 20:33
DX: O23.12 Infections of bladder in pregnancy, second trimester (principal); O26.892 Other specified pregnancy related conditions, second trimester; Z67.41 Type O blood, Rh negative; O99.332 Smoking (tobacco) complicating pregnancy, second trimester; F17.200 Nicotine dependence, unspecified, uncomplicated; Z3A.19 19 weeks gestation of pregnancy; O99.112 Other diseases of the blood and blood-forming organs and certain disorders involving the immune mechanism complicating pregnancy, second trimester; D66 Hereditary factor VIII deficiency
CPT/HCPCS: 36415; 76815; 80053; 81001; 81025; 83690; 84702; 85025; 96372; 99284; A9270; 81003; 87086

== ENCOUNTER 2019-09-30 07:00 | Outpatient (CLI) | payer MEDICAID ==
[2019-09-30 16:00] LABS: MUDS CUTOFF CONCENTRATIONS CUTOFF CONC BELOW:
[2019-09-30 16:06] LABS: BILIRUBIN,URINE NEGATIVE (NEGATIVE); GLUCOSE, URINE (UA) NEGATIVE (NEGATIVE); KETONES,URINE (UA) NEGATIVE (NEGATIVE); LEUKOCYTE ESTERASE, URINE NEGATIVE (NEGATIVE); NITRITE,URINE NEGATIVE (NEGATIVE); OCCULT BLOOD,URINE NEGATIVE (NEGATIVE); PROTEIN,URINE NEGATIVE (NEGATIVE); UROBILINOGEN,URINE 0.2 (NORMAL) E.U./dL (NORMAL)
[2019-09-30 16:25] LABS: BACTERIA,URINE Many /HPF (None Seen); CLARITY,URINE CLEAR (CLEAR); RBC,URINE None Seen /HPF (0-5); SQUAMOUS EPITHELIAL CELL,UR MANY Squamous (<= Few)
[2019-09-30 16:26] LABS: AMPHETAMINE SCREEN,URINE NEGATIVE (NEGATIVE); BENZODIAZEPINES SCREEN, URINE NEGATIVE (NEGATIVE); COCAINE SCREEN URINE NEGATIVE (NEGATIVE); METHADONE SCREEN, URINE NEGATIVE (NEGATIVE); METHAMPHETAMINES SCREEN, URINE NEGATIVE (NEGATIVE); OPIATE SCREEN, URINE NEGATIVE (NEGATIVE); OXYCODONE SCREEN, URINE NEGATIVE (NEGATIVE); PROPOXYPHENE SCREEN, URINE NEGATIVE (NEGATIVE); TRICYCLIC ANTIDEPRESSANT,URINE NEGATIVE (NEGATIVE)
[2019-09-30 19:00] LABS: CANDIDA GROUP DNA POSITIVE (NEGATIVE); CANDIDA KRUSEI DNA NEGATIVE (NEGATIVE); TRICHOMONAS VAGINALIS DNA NEGATIVE (NEGATIVE)
== END 2019-09-30 23:59 | disposition home or self-care (01) ==
LOC: LAB.R 07:00
PROVIDERS: ATTEND Advanced Practice Midwife
DX: Z36.89 Encounter for other specified antenatal screening (principal); O09.90 Supervision of high risk pregnancy, unspecified, unspecified trimester
CPT/HCPCS: 80306; 80349; 81001; 81599; 87086; 87661; 87801

== ENCOUNTER 2020-02-02 07:33 | Outpatient (CLI) | payer MEDICAID ==
[2020-02-02 08:14] LABS: RUPTURE OF MEMBRANES PLUS NEGATIVE (NEGATIVE)
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
[2020-02-02 09:04] VITALS: BP 132/77
[2020-02-02 09:26] LABS: BASOPHILS % (AUTO) 0.4 %; HGB - HEMOGLOBIN 9.2 g/dL (12.0-16.0); LYMPHOCYTES # (AUTO) 0.8 10^3/uL (1.5-3.5); LYMPHOCYTES % (AUTO) 8.8 %; MEAN CORPUSCULAR HEMOGLOBIN 27.5 pg (27.0-31.0); MEAN CORPUSCULAR HGB CONC 31.5 g/dL (32.0-36.0); MEAN CORPUSCULAR VOLUME 87.2 fL (81.0-99.0); MONOCYTES # (AUTO) 0.4 10^3/uL (0.0-1.0); MONOCYTES % (AUTO) 4.5 %; NEUTROPHILS # (AUTO) 7.8 10^3/uL (1.5-6.6); PLT - PLATELET COUNT 224 10^3/uL (130-450); RED BLOOD COUNT 3.35 10^6/uL (4.20-5.40); RED CELL DISTRIBUTION WIDTH 14.3 % (12.0-15.0); WHITE BLOOD COUNT 9.2 x10^3/uL (4.8-10.8)
[2020-02-02 09:35] LABS: ALBUMIN 2.8 g/dL (3.2-5.5); ALBUMIN/GLOBULIN RATIO 0.8 (1.0-2.2); BILIRUBIN,TOTAL 0.6 mg/dL (0.2-1.0); CALCIUM 8.1 mg/dL (8.5-10.3); CREATININE 0.5 mg/dL (0.4-1.0); TOTAL PROTEIN 6.4 g/dL (6.7-8.2)
[2020-02-02 09:53] LABS: BILIRUBIN,URINE NEGATIVE (NEGATIVE); GLUCOSE, URINE (UA) NEGATIVE (NEGATIVE); KETONES,URINE (UA) NEGATIVE (NEGATIVE); LEUKOCYTE ESTERASE, URINE TRACE (NEGATIVE); NITRITE,URINE NEGATIVE (NEGATIVE); OCCULT BLOOD,URINE NEGATIVE (NEGATIVE); PROTEIN,URINE NEGATIVE (NEGATIVE); UROBILINOGEN,URINE 0.2 (NORMAL) E.U./dL (NORMAL)
[2020-02-02] MEDS ORDERED: fentaNYL 100 MCG/2 ML VIAL IVP ONE (10:00)
[2020-02-02 10:15] LABS: AMPHETAMINE SCREEN,URINE NEGATIVE (NEGATIVE); BENZODIAZEPINES SCREEN, URINE NEGATIVE (NEGATIVE); CLARITY,URINE CLEAR (CLEAR); COCAINE SCREEN URINE NEGATIVE (NEGATIVE); METHADONE SCREEN, URINE NEGATIVE (NEGATIVE); METHAMPHETAMINES SCREEN, URINE NEGATIVE (NEGATIVE); MUDS CUTOFF CONCENTRATIONS CUTOFF CONC BELOW:; OPIATE SCREEN, URINE NEGATIVE (NEGATIVE); OXYCODONE SCREEN, URINE NEGATIVE (NEGATIVE); PROPOXYPHENE SCREEN, URINE NEGATIVE (NEGATIVE); TRICYCLIC ANTIDEPRESSANT,URINE NEGATIVE (NEGATIVE)
[2020-02-02 10:33] LABS: RBC,URINE 0-5 /HPF (0-5); SQUAMOUS EPITHELIAL CELL,UR RARE Squamous (<= Few)
[2020-02-02 10:34] LABS: BACTERIA,URINE Rare /HPF (None Seen)
[2020-02-02 20:53] LABS: TRICHOMONAS VAGINALIS DNA NEGATIVE (NEGATIVE)
[2020-02-04 11:22] LABS: HIV AG/AB 4TH GEN NON-REACTIVE (NON-REACTIVE)
[2020-02-04 12:41] LABS: HEPATITIS B SURFACE ANTIGEN NON-REACTIVE (NON-REACTIVE)
== END 2020-02-02 09:35 | disposition short-term general hospital (02) ==
LOC: WFO 07:33 → FBP 07:36 → WFO 09:35
PROVIDERS: ATTEND Obstetrics & Gynecology
DX: O99.113 Other diseases of the blood and blood-forming organs and certain disorders involving the immune mechanism complicating pregnancy, third trimester (principal); D66 Hereditary factor VIII deficiency; Z3A.38 38 weeks gestation of pregnancy; O09.30 Supervision of pregnancy with insufficient antenatal care, unspecified trimester; O99.513 Diseases of the respiratory system complicating pregnancy, third trimester; J45.909 Unspecified asthma, uncomplicated; O34.219 Maternal care for unspecified type scar from previous cesarean delivery; O99.343 Other mental disorders complicating pregnancy, third trimester; F31.9 Bipolar disorder, unspecified; O99.353 Diseases of the nervous system complicating pregnancy, third trimester; O98.813 Other maternal infectious and parasitic diseases complicating pregnancy, third trimester; K04.7 Periapical abscess without sinus; O99.323 Drug use complicating pregnancy, third trimester; F19.90 Other psychoactive substance use, unspecified, uncomplicated; Z79.51 Long term (current) use of inhaled steroids; Z79.899 Other long term (current) drug therapy; Z87.891 Personal history of nicotine dependence; Z86.19 Personal history of other infectious and parasitic diseases; Z91.419 Personal history of unspecified adult abuse; Z87.59 Personal history of other complications of pregnancy, childbirth and the puerperium
CPT/HCPCS: 36415; 59025; 80053; 80306; 81001; 81003; 84112; 85025; 86762; 86780; 86900; 86901; 87081; 87086; 87340; 87389; 87491; 87591; 87661; 87797; 96374; 99215

== ENCOUNTER 2020-02-02 09:36 | Outpatient (CLI) | payer MEDICAID | END 2020-02-02 09:37 | disposition other institution (70) | LOC: EMS 09:36 | PROVIDERS: ATTEND Surgery | DX: Z76.89 Persons encountering health services in other specified circumstances (principal) | CPT/HCPCS: A0425; A0428 ==

== ENCOUNTER 2021-08-19 11:24 | Outpatient (CLI) | payer MEDICAID ==
--- NOTE | 2021-08-19 14:33 | Ultrasound Report ---
PROCEDURE: OB Detailed Eval INDICATIONS: HEMOPHILLA, SUPERVISION OF OUTSIDE/PRIOR DATING DATA: Last menstrual period (LMP): 11/08/2020. LMP-based estimated date of delivery (KAIA): 08/15/2021. First dating scan (date and location): 08/19/[address] [facility]. Estimated date of delivery (KAIA) from first dating scan: 09/17/2021. The below data below was generated using the ultrasound KAIA of 09/17/2021. TECHNIQUE: Real-time scanning was performed of the fetus, with image documentation and biometric measurements. COMPARISON: None. FINDINGS: General: A single living intrauterine gestation is present. Presentation: Breech Placenta: Placental position is anterior fundal, without previa. Amniotic fluid index: 20.7 cm; largest pocket 8.2 cm. heart rate: 158 beats per minute. Maternal cervical canal: 2.3 cm long; normal length is 2.5 cm or more. biometrics: Biparietal diameter: 36 weeks 4 days. Head circumference: 37 weeks 3 days Abdominal circumference: 36 weeks 4 days Femur length: 32 weeks 6 days Estimated gestational age from initial dating scan: not available. Composite gestational age from present scan: 35 weeks 6 days Estimated weight and percentile: 2750 g; 20% Measurement variability in biometric dating: +/- 10 days from 12-20 weeks gestation, +/- 2 weeks from 20-30 weeks gestation, +/- 3 weeks at 30 weeks gestation or later. Anatomic survey: Neuro: Ventricles are normal at less than 10 mm. Cisterna magna and cerebellum are not well seen. Nuchal skin fold: n.a.. Face: Nose and lips are normal. facial profile suboptimally visualized. Spine: No evidence for spina bifida. Heart: 4-chambered heart is present, with normal ventricular outflow tracts. Diaphragm: Diaphragm is intact. Stomach: Left-sided stomach is present. Kidneys: No hydronephrosis. Normal is less than 5 mm in 2nd trimester, less than 7 mm in 3rd trimester. Cord: 3 vessel cord has orthotopic insertion. Bladder: Normal in size. Extremities: All 4 extremities are visualized. IMPRESSION: 1. A single living intrauterine gestation with the estimated gestational age 35 weeks 6 days based on the current ultrasound. Ultrasound KAIA 09/17/2021. No prior dating scan is available. Ultrasound mack ing is discordant with the clinical dating (40 weeks and 4 days with KAIA 08/15/2021 based on provided LMP). 2. head is not well seen. Otherwise normal anatomic survey. 3. Fetus is in breech presentation. 4. Mild shortening of cervix. 5. IMELDA 20.7 cm with the largest pocket 8.2 cm, concerning for polyhydramnios. Reviewed by: Bridgette Devine MD on 08/19/2021 2:32 PM PDT Approved by: Bridgette Devine MD on 08/19/2021 2:32 PM PDT Station ID: [id number]
== END 2021-08-19 11:25 | disposition home or self-care (01) ==
LOC: DI 11:24
PROVIDERS: ATTEND Obstetrics & Gynecology
DX: O09.93 Supervision of high risk pregnancy, unspecified, third trimester (principal); O99.113 Other diseases of the blood and blood-forming organs and certain disorders involving the immune mechanism complicating pregnancy, third trimester; D66 Hereditary factor VIII deficiency; Z3A.35 35 weeks gestation of pregnancy

== ENCOUNTER 2021-08-20 01:03 | Observation (INO) | payer MEDICAID ==
[2021-08-20 01:48] LABS: BASOPHILS % (AUTO) 0.4 %; EOSINOPHILS % (AUTO) 0.3 %; HCT - HEMATOCRIT 28.9 % (37.0-47.0); HGB - HEMOGLOBIN 9.2 g/dL (12.0-16.0); LYMPHOCYTES # (AUTO) 1.4 10^3/uL (1.5-3.5); LYMPHOCYTES % (AUTO) 13.3 %; MEAN CORPUSCULAR HEMOGLOBIN 26.2 pg (27.0-31.0); MEAN CORPUSCULAR HGB CONC 31.8 g/dL (32.0-36.0); MEAN CORPUSCULAR VOLUME 82.3 fL (81.0-99.0); MEAN PLATELET VOLUME 9.3 fL (7.9-10.8); MONOCYTES # (AUTO) 0.5 10^3/uL (0.0-1.0); MONOCYTES % (AUTO) 4.9 %; NEUTROPHILS # (AUTO) 8.3 10^3/uL (1.5-6.6); NEUTROPHILS % (AUTO) 80.3 %; PLT - PLATELET COUNT 235 10^3/uL (130-450); RED BLOOD COUNT 3.51 10^6/uL (4.20-5.40); RED CELL DISTRIBUTION WIDTH 14.2 % (12.0-15.0); WHITE BLOOD COUNT 10.3 x10^3/uL (4.8-10.8)
[2021-08-20 01:55] LABS: ALBUMIN 2.5 g/dL (3.2-5.5); ALBUMIN/GLOBULIN RATIO 0.7 (1.0-2.2); BILIRUBIN,TOTAL 0.3 mg/dL (0.2-1.0); CALCIUM 8.1 mg/dL (8.5-10.3); CREATININE 0.7 mg/dL (0.4-1.0); POTASSIUM 3.3 mmol/L (3.5-5.0); TOTAL PROTEIN 6.2 g/dL (6.7-8.2)
[2021-08-20 02:40] LABS: HIV RAPID SCREEN NEGATIVE (NEGATIVE)
[2021-08-20 02:51] LABS: RUPTURE OF MEMBRANES PLUS NEGATIVE (NEGATIVE)
--- NOTE | 2021-08-20 02:52 | HISTORY & PHYSICAL EXAMINATION ---
Admit History - Visit Reason Visit Reason: Membranes rupture - : 6 Parity: 2122 Care: positive: None Risk/History: positive: No care, High risk (Hemophelia A) Complications This : positive: <than 3 visits, Maternal drug use, Other (Hemophilia A) - Mother's Labs Mother's Blood Type: positive: O Mother's RH: positive: Negative Rubella Status: positive: Immune - Other Maternal History Other Maternal History: HPI: Patient is a 31-year-old -1-2-2 at approximately 36 weeks gestation by ultrasound yesterday, not consistent with LMP. She complains of leaking fluid t hat started this afternoon when crushing the ice in her drink. She felt a large gush and is concerned as she is also having diffuse moderate pain in her abdomen but attributes this when her fetus moves, and also notes a vaginal tearing/bruising sensation. She does have two prior sections. Denies contractions. No vaginal bleeding. She also has hemophilia A and is worried about bleeding into her belly or legs. She does say this is a male fetus. Patient says she is 10 weeks overdue and is worried her fetus will by waiting this long. She is very irritated that we are not immediately sending her to another facility. Denies significant headaches or vision changes. She has significant bilateral lower extremity swelling and pain. She believes she is bleeding into her legs. She denies any recent trauma. She also notes a history of syncope and this presents today as falling asleep then jerking awake. This is been a known issue for her and says it is a side effect from previous medications. She presents today with the foster mother of her previous children who is planning on adopting this child as well. The foster mother is concerned as this seems new to her, although she does not spend a lot of time with the patient. All other symptoms reviewed and were negative except per HPI. Course No care PMH Hemophilia A Asthma: Albuterol inhaler approximately 3 times a day. Bipolar disorder PSH section x2, 32 weeks, 38 weeks D&C x2 LEEP OB History -1-2-2 1. 05/14/2007, 40 weeks, 2. 2007, unknown gestation, D&C 3. 11/17/2010, 32 weeks, section 4. 03/02/2016, unknown gestation, D&C 5. 02/02/2020, 38 weeks, section SH Currently living with her children's godmother. Denies tobacco, alcohol, drugs, but does say she used methamphetamines for the first 2 weeks of this . Family History Mother: Hemophilia, hypertension, CVA, bipolar Maternal grandmother: Breast cancer, cervical cancer Allergies Keflex Cefaclor Codeine Penicillin Tramadol NSAIDs Clindamycin Medications Albuterol, currently 3 times a day Physical exam: General: Alert, oriented. Skin: Numerous sores around body. Head: Normal cephalic atraumatic Eyes: PERRLA, extraocular motions intact. Respiratory: Normal rate of respiration. No accessory muscle use, normal respiratory effort. Cardiovascular: Regular rate and rhythm Abdomen: Gravid, uncomfortable when touched, but no guarding or rebound. Extremities: Bilateral 2+ pitting edema, 2+ pedal pulses, negative for calf pain with palpation and heel flexing. Neuro: Oriented x3 while awake. 2+ DTR, no clonus. 2+ Psych: Anxious and intermittently angry. Frequently falls asleep intermittently then jerks awake. SVE: 0/0/-3 SSE: Negative pooling, negative Valsalva, negative nitrazine, negative ferning. Moderate amount of foamy white discharge. FHT: 130 beats per baseline, moderate variability, accelerations present, no decelerations. [place]: Rare contraction, less than 1/h labs Plan 31-year-old -1-2-2 at 36 weeks 0 days gestation by 35-week ultrasound with preeclampsia with severe features. 1. Preeclampsia with severe features -Blood pressures in the 140s over 80s. No care, however previous readings in 2020 shows systolic pressures in the 100s-110s outside of . -AST/ALT show a prominent transaminitis with AST/ALT of 82/127. Comparable baselines from 2019 and 2020 which were both normal. -Urine protein to creatinine ratio 0.1. -Start magnesium sulfate 4 gram bolus followed by 2 grams/hour. 2. 36 weeks gestation -Category 1 tracing. -Not actively laboring. -Walk-in labs collected -Will hold steroids as benefit is likely limited 3. Previous section times 2 -Unknown scare, although very likely low transverse. 4. Rule out rupture -Negative ROM plus, negative SSE 5. Hemophilia A: -Known male fetus -Very concerned about bleeding and factor availability. Should deliver at tertiary care center with greater pediatric support. 6. Maternal drug use: -Denies active use. Did use methamphetamines for the first 2 weeks of . -Patient consented and signed for UDS. -Positive for methamphetamines 7. Rh Negative -Patient says she went to a walk in clinic 3 weeks ago and had a rhogam shot. Says she has a card at home. 8. Asthma -3 times daily albuterol use 9. Seizure disorder -Says this is from previous medication use. Previous use Depakote for bipolar, but also had benefit of seizure protection. Has not been on this for approximately 4 to 5 years. -I do not believe her sleeping and jerking awake episodes appear seizure-like. 10. Bipolar disorder -No current medications 11. Bacterial vaginosis -Likely the cause of her leaking sensation. -Start treatment with metronidazole 12. Yeast vaginitis -Positive on vaginitis panel. 13. High risk social situation -Currently living with friend -Foster mom of previous children with patient. Planning on taking this child as well. Will bring paperwork to discuss with social work. Spoke with transfer center and Dr. Sarah. We agree that patient should be transferred, however they have limited staffing at the current time but a nticipate several deliveries in the coming hours and arrange transfer at that point. From my perspective, patient is stable and already on magnesium sulfate. She is not in risk of imminent delivery, but we should continue to work towards arranging appropriate care due to the need for delivery due to preeclampsia and the confounding factor of hemophilia. Plan to keep patient for several hours an d will expect a call from Dr. Sarah or Dr. Antoine when a bed becomes available. Will find alternate transfer if patient's condition worsens in the interim. Meds/Allgy - Home Medications Home Medications: Ambulatory Orders Medication Instructions Recorded Confirmed Factor Viii 09/09/19 - Allergies Allergies/Adverse Reactions: Allergies Allergy/AdvReac Type Severity Reaction Status Date / Time amoxicillin [Amoxicillin] Allergy Rash Verified 09/22/19 20:40 benzocaine Allergy Anaphylaxis Verified 09/22/19 20:40 cefaclor [From Ceclor] Allergy Rash Verified 09/22/19 20:40 cephalexin monohydrate * Allergy Rash Verified 09/22/19 20:40 [From Keflex] clindamycin Allergy Rash Verified 09/22/19 20:40 codeine [Codeine] Allergy Rash Verified 09/22/19 20:40 doxycycline Allergy Rash Verified 09/22/19 20:40 morphine Allergy Rash Verified 09/22/19 20:40 NSAIDS (Non-Steroidal Allergy Unknown Verified 09/22/19 20:40 Anti-Inflamma Penicillins Allergy Rash Verified 09/22/19 20:40 cillins Allergy Unknown Uncoded 09/22/19 20:40 Physical - Abdominal Exam Vital Signs: Temp Pulse Resp BP Pulse Ox 98 F 100 18 138/80 H 08/20/21 00:53 08/20/21 00:53 08/20/21 00:53 08/20/21 00:53 Plan for Labor - Plan For Labor I expect patient to be DC'd or transferred within 96 hours.: Yes
[2021-08-20 04:03] LABS: MUDS CUTOFF CONCENTRATIONS CUTOFF CONC BELOW:
[2021-08-20 04:04] LABS: BILIRUBIN,URINE NEGATIVE (NEGATIVE); GLUCOSE, URINE (UA) NEGATIVE (NEGATIVE); KETONES,URINE (UA) NEGATIVE (NEGATIVE); LEUKOCYTE ESTERASE, URINE NEGATIVE (NEGATIVE); NITRITE,URINE NEGATIVE (NEGATIVE); OCCULT BLOOD,URINE NEGATIVE (NEGATIVE); PROTEIN,URINE TRACE mg/dL (NEGATIVE); UROBILINOGEN,URINE 0.2 (NORMAL) E.U./dL (NORMAL)
[2021-08-20 04:14] LABS: BACTERIAL VAGINOSIS DNA POSITIVE (NEGATIVE); CANDIDA GLABRATA DNA NEGATIVE (NEGATIVE); CANDIDA GROUP DNA POSITIVE (NEGATIVE); CANDIDA KRUSEI DNA NEGATIVE (NEGATIVE); TRICHOMONAS VAGINALIS DNA NEGATIVE (NEGATIVE)
[2021-08-20 04:15] LABS: CLARITY,URINE CLEAR (CLEAR); EPITHELIAL CELLS,UR FEW Transitional /HPF (<= Few); RBC,URINE 0-5 /HPF (0-5); SQUAMOUS EPITHELIAL CELL,UR MOD Squamous (<= Few); WBC,URINE 0-3 /HPF (0-5)
[2021-08-20 04:16] LABS: AMPHETAMINE SCREEN,URINE POSITIVE (NEGATIVE); BACTERIA,URINE Rare /HPF (None Seen); BARBITURATE SCREEN,UR NEGATIVE (NEGATIVE); BENZODIAZEPINES SCREEN, URINE NEGATIVE (NEGATIVE); COCAINE SCREEN URINE NEGATIVE (NEGATIVE); METHADONE SCREEN, URINE NEGATIVE (NEGATIVE); METHAMPHETAMINES SCREEN, URINE POSITIVE (NEGATIVE); OPIATE SCREEN, URINE NEGATIVE (NEGATIVE); OXYCODONE SCREEN, URINE NEGATIVE (NEGATIVE); PROPOXYPHENE SCREEN, URINE NEGATIVE (NEGATIVE); THC CANNABINOID SCREEN, URINE NEGATIVE (NEGATIVE); TRICYCLIC ANTIDEPRESSANT,URINE NEGATIVE (NEGATIVE)
[2021-08-20 04:20] LABS: CREATININE,URINE 311.6 mg/dL; PROTEIN/CREATININE RATIO,URINE 0.1 (<=0.2)
[2021-08-20] MEDS ORDERED: MAGNESIUM SULFATE 4 GRAM 4 GM/50 ML BAG IV ONE (04:33)
[2021-08-20] MEDS ORDERED: LACTATED RINGERS 1,000 ML ONE (04:53)
[2021-08-20] MEDS ORDERED: metroNIDAZOLE 250 MG TABLET PO SCH (04:54)
[2021-08-20] MEDS ORDERED: MAGNESIUM SULFATE IN WATER 20 GM/500 ML IV.SOLN IV SCH (05:00)
[2021-08-20] MEDS ORDERED: LACTATED RINGERS 1,000 ML IV SCH (05:00)
--- NOTE | 2021-08-20 05:43 | PROVIDER PROGRESS NOTE ---
Progress Note Patient had a difficult IV start, but eventually were able to place IV to start magnesium. After placement of IV, patient became upset and is demanding to go outside. Discussed that we cannot safely do that, and that our priority is to start the magnesium seizure prophylaxis. She is understandably upset with the situation, but she is currently refusing the magnesium. She is saying her bipolar is getting the best of her. Offered to take her to the large windows overlooking the garden as a compromise, but she refuses. Will continue to attempt treatment.
[2021-08-20 05:54] LABS: CHLAMYDIA TRACHOMATIS DNA NEGATIVE (NEGATIVE); NEISSERIA GONORRHOEAE DNA NEGATIVE (NEGATIVE)
--- NOTE | 2021-08-20 09:08 | PROVIDER PROGRESS NOTE ---
Subjective - Prog Note Date Prog Note Date: 08/20/21 Prog Note Time: 09:02 - Subjective Subjective: Patient complaining of continued pain, but denies contractions. Patient has started having contractions on the monitor 12 to 15 minutes. heart trac ing 130 bpm baseline, moderate variability, accelerations present, no decelerations. Blood pressure currently normalized. Continues on magnesium. Decline metronidazole. Cervical exam unchanged. Objective - Vital Signs/Intake & Output Vital Signs: Vital Signs x48h Pulse Resp BP Pulse Ox 08/20/21 07:14 99 124/76 98 08/20/21 07:00 96 18 128/63 98 08/20/21 06:45 100 18 129/63 98 08/20/21 06:30 111 H 18 114/60 98 08/20/21 06:10 99 18 129/74 98 08/20/21 06:00 97 22 114/57 L 99 08/20/21 03:40 98 20 133/87 H 99 08/20/21 03:11 98 18 121/98 H 08/20/21 02:20 104 H 20 140/82 H 100 Intake & Output: Intake & Output 08/17/21 08/18/21 08/19/21 08/20/21 23:59 23:59 23:59 23:59 Intake Total 50 Balance 50 - Lab Results Fish Bones: 08/20/21 01:34 08/20/21 01:34 Other Labs: Lab Results x24hrs 08/20/21 08/20/21 08/20/21 Range/Units 03:45 03:45 02:20 WBC (4.8-10.8) x10^3/uL RBC (4.20-5.40) 10^6/uL Hgb (12.0-16.0) g/dL Hct (37.0-47.0) % MCV (81.0-99.0) fL MCH (27.0-31.0) pg MCHC (32.0-36.0) g/dL RDW (12.0-15.0) % Plt Count (130-450) 10^3/uL MPV (7.9-10.8) fL Neut # (Auto) (1.5-6.6) 10^3/uL Lymph # (Auto) (1.5-3.5) 10^3/uL [place] # (Auto) (0.0-1.0) 10^3/uL Eos # (Auto) (0.0-0.7) 10^3/uL Baso # (Auto) (0.0-0.1) 10^3/uL Absolute Nucleated RBC x10^3/uL Nucleated RBC % /100WBC Sodium (135-145) mmol/L Potassium (3.5-5.0) mmol/L Chloride (101-111) mmol/L Carbon Dioxide (21-32) mmol/L Anion Gap (6-13) BUN (6-20) mg/dL Creatinine (0.4-1.0) mg/dL Estimated GFR (MDRD) (>89) Glucose (70-100) mg/dL Calcium (8.5-10.3) mg/dL Total Bilirubin (0.2-1.0) mg/dL AST (10-42) IU/L ALT (10-60) IU/L Alkaline Phosphatase (42-121) IU/L Total Protein (6.7-8.2) g/dL Albumin (3.2-5.5) g/dL Globulin (2.1-4.2) g/dL Albumin/Globulin Ratio (1.0-2.2) Urine Color YELLOW Urine Clarity CLEAR (CLEAR) Urine pH 6.0 (5.0-7.5) PH Ur Specific [place] >=1.030 H (1.002-1.030) Urine Protein TRACE (NEGATIVE) mg/dL Urine Glucose (UA) NEGATIVE (NEGATIVE) mg/dL Urine Ketones NEGATIVE (NEGATIVE) mg/dL Urine Occult Blood NEGATIVE (NEGATIVE) Urine Nitrite NEGATIVE (NEGATIVE) Urine Bilirubin NEGATIVE (NEGATIVE) Urine Urobilinogen 0.2 (NORMAL) (NORMAL) E.U./dL Ur Leukocyte Esterase NEGATIVE (NEGATIVE) Urine RBC 0-5 (0-5) /HPF Urine WBC 0-3 (0-5) /HPF Ur Epithelial Cells FEW Transitional (<= Few) /HPF Ur Squamous Epith Cells MOD Squamous H (<= Few) Urine Bacteria Rare (None Seen) /HPF Urine Creatinine 311.6 mg/dL Ur Total Protein Timed 38 mg/dL Protein/Creatinin Ratio 0.1 (<=0.2) Membranes Rupture (NEGATIVE) Urine Opiates Screen NEGATIVE (NEGATIVE) Ur Oxycodone Screen NEGATIVE (NEGATIVE) Urine Methadone Screen NEGATIVE (NEGATIVE) Ur Propoxyphene Screen NEGATIVE (NEGATIVE) Ur Barbiturates Screen NEGATIVE (NEGATIVE) Ur Tricyclics Screen NEGATIVE (NEGATIVE) Ur Phencyclidine Scrn NEGATIVE (NEGATIVE) Ur Amphetamine Screen POSITIVE H (NEGATIVE) U Methamphetamines Scrn POSITIVE H (NEGATIVE) U Benzodiazepines Scrn NEGATIVE (NEGATIVE) Urine Cocaine Screen NEGATIVE (NEGATIVE) U Cannabinoids Screen NEGATIVE (NEGATIVE) C. glabrata (PCR) (NEGATIVE) C. krusei (PCR) (NEGATIVE) Kasandra species DNA (NEGATIVE) Chlam trachomat DNA PCR NEGATIVE (NEGATIVE) HIV 1&2 Antibody Rapid (NEGATIVE) N.gonorrhoeae DNA (PCR) NEGATIVE (NEGATIVE) Rubella IgG Antibody IU/mL T. vaginalis (PCR) TNP (NEGATIVE) Bact Vaginosis (PCR) (NEGATIVE) Blood Type Antibody Screen 08/20/21 08/20/21 08/20/21 Range/Units 02:20 02:20 01:58 WBC (4.8-10.8) x10^3/uL RBC (4.20-5.40) 10^6/uL Hgb (12.0-16.0) g/dL Hct (37.0-47.0) % MCV (81.0-99.0) fL MCH (27.0-31.0) pg MCHC (32.0-36.0) g/dL RDW (12.0-15.0) % Plt Count (130-450) 10^3/uL MPV (7.9-10.8) fL Neut # (Auto) (1.5-6.6) 10^3/uL Lymph # (Auto) (1.5-3.5) 10^3/uL [place] # (Auto) (0.0-1.0) 10^3/uL Eos # (Auto) (0.0-0.7) 10^3/uL Baso # (Auto) (0.0-0.1) 10^3/uL Absolute Nucleated RBC x10^3/uL Nucleated RBC % /100WBC Sodium (135-145) mmol/L Potassium (3.5-5.0) mmol/L Chloride (101-111) mmol/L Carbon Dioxide (21-32) mmol/L Anion Gap (6-13) BUN (6-20) mg/dL Creatinine (0.4-1.0) mg/dL Estimated GFR (MDRD) (>89) Glucose (70-100) mg/dL Calcium (8.5-10.3) mg/dL Total Bilirubin (0.2-1.0) mg/dL AST (10-42) IU/L ALT (10-60) IU/L Alkaline Phosphatase (42-121) IU/L Total Protein (6.7-8.2) g/dL Albumin (3.2-5.5) g/dL Globulin (2.1-4.2) g/dL Albumin/Globulin Ratio (1.0-2.2) Urine Color Urine Clarity (CLEAR) Urine pH (5.0-7.5) PH Ur Specific [place] (1.002-1.030) Urine Protein (NEGATIVE) mg/dL Urine Glucose (UA) (NEGATIVE) mg/dL Urine Ketones (NEGATIVE) mg/dL Urine Occult Blood (NEGATIVE) Urine Nitrite (NEGATIVE) Urine Bilirubin (NEGATIVE) Urine Urobilinogen (NORMAL) E.U./dL Ur Leukocyte Esterase (NEGATIVE) Urine RBC (0-5) /HPF Urine WBC (0-5) /HPF Ur Epithelial Cells (<= Few) /HPF Ur Squamous Epith Cells (<= Few) Urine Bacteria (None Seen) /HPF Urine Creatinine mg/dL Ur Total Protein Timed mg/dL Protein/Creatinin Ratio (<=0.2) Membranes Rupture NEGATIVE (NEGATIVE) Urine Opiates Screen (NEGATIVE) Ur Oxycodone Screen (NEGATIVE) Urine Methadone Screen (NEGATIVE) Ur Propoxyphene Screen (NEGATIVE) Ur Barbiturates Screen (NEGATIVE) Ur Tricyclics Screen (NEGATIVE) Ur Phencyclidine Scrn (NEGATIVE) Ur Amphetamine Screen (NEGATIVE) U Methamphetamines Scrn (NEGATIVE) U Benzodiazepines Scrn (NEGATIVE) Urine Cocaine Screen (NEGATIVE) U Cannabinoids Screen (NEGATIVE) C. glabrata (PCR) NEGATIVE (NEGATIVE) C. krusei (PCR) NEGATIVE (NEGATIVE) Kasandra species DNA POSITIVE A (NEGATIVE) Chlam trachomat DNA PCR (NEGATIVE) HIV 1&2 Antibody Rapid NEGATIVE (NEGATIVE) N.gonorrhoeae DNA (PCR) (NEGATIVE) Rubella IgG Antibody IU/mL T. vaginalis (PCR) NEGATIVE (NEGATIVE) Bact Vaginosis (PCR) POSITIVE A (NEGATIVE) Blood Type Antibody Screen 08/20/21 08/20/21 08/20/21 Range/Units 01:34 01:34 01:34 WBC 10.3 (4.8-10.8) x10^3/uL RBC 3.51 L (4.20-5.40) 10^6/uL Hgb 9.2 L (12.0-16.0) g/dL Hct 28.9 L (37.0-47.0) % MCV 82.3 (81.0-99.0) fL MCH 26.2 L (27.0-31.0) pg MCHC 31.8 L (32.0-36.0) g/dL RDW 14.2 (12.0-15.0) % Plt Count 235 (130-450) 10^3/uL MPV 9.3 (7.9-10.8) fL Neut # (Auto) 8.3 H (1.5-6.6) 10^3/uL Lymph # (Auto) 1.4 L (1.5-3.5) 10^3/uL [place] # (Auto) 0.5 (0.0-1.0) 10^3/uL Eos # (Auto) 0.0 (0.0-0.7) 10^3/uL Baso # (Auto) 0.0 (0.0-0.1) 10^3/uL Absolute Nucleated RBC 0.00 x10^3/uL Nucleated RBC % 0.0 /100WBC Sodium 135 (135-145) mmol/L Potassium 3.3 L (3.5-5.0) mmol/L Chloride 104 (101-111) mmol/L Carbon Dioxide 19 L (21-32) mmol/L Anion Gap 12.0 (6-13) BUN 8 (6-20) mg/dL Creatinine 0.7 (0.4-1.0) mg/dL Estimated GFR (MDRD) 96 (>89) Glucose 128 H (70-100) mg/dL Calcium 8.1 L (8.5-10.3) mg/dL Total Bilirubin 0.3 (0.2-1.0) mg/dL AST 82 H (10-42) IU/L ALT 127 H (10-60) IU/L Alkaline Phosphatase 131 H (42-121) IU/L Total Protein 6.2 L (6.7-8.2) g/dL Albumin 2.5 L (3.2-5.5) g/dL Globulin 3.7 (2.1-4.2) g/dL Albumin/Globulin Ratio 0.7 L (1.0-2.2) Urine Color Urine Clarity (CLEAR) Urine pH (5.0-7.5) PH Ur Specific [place] (1.002-1.030) Urine Protein (NEGATIVE) mg/dL Urine Glucose (UA) (NEGATIVE) mg/dL Urine Ketones (NEGATIVE) mg/dL Urine Occult Blood (NEGATIVE) Urine Nitrite (NEGATIVE) Urine Bilirubin (NEGATIVE) Urine Urobilinogen (NORMAL) E.U./dL Ur Leukocyte Esterase (NEGATIVE) Urine RBC (0-5) /HPF Urine WBC (0-5) /HPF Ur Epithelial Cells (<= Few) /HPF Ur Squamous Epith Cells (<= Few) Urine Bacteria (None Seen) /HPF Urine Creatinine mg/dL Ur Total Protein Timed mg/dL Protein/Creatinin Ratio (<=0.2) Membranes Rupture (NEGATIVE) Urine Opiates Screen (NEGATIVE) Ur Oxycodone Screen (NEGATIVE) Urine Methadone Screen (NEGATIVE) Ur Propoxyphene Screen (NEGATIVE) Ur Barbiturates Screen (NEGATIVE) Ur Tricyclics Screen (NEGATIVE) Ur Phencyclidine Scrn (NEGATIVE) Ur Amphetamine Screen (NEGATIVE) U Methamphetamines Scrn (NEGATIVE) U Benzodiazepines Scrn (NEGATIVE) Urine Cocaine Screen (NEGATIVE) U Cannabinoids Screen (NEGATIVE) C. glabrata (PCR) (NEGATIVE) C. krusei (PCR) (NEGATIVE) Kasandra species DNA (NEGATIVE) Chlam trachomat DNA PCR (NEGATIVE) HIV 1&2 Antibody Rapid (NEGATIVE) N.gonorrhoeae DNA (PCR) (NEGATIVE) Rubella IgG Antibody 17.1 IU/mL T. vaginalis (PCR) (NEGATIVE) Bact Vaginosis (PCR) (NEGATIVE) Blood Type Antibody Screen 08/20/21 Range/Units 01:34 WBC (4.8-10.8) x10^3/uL RBC (4.20-5.40) 10^6/uL Hgb (12.0-16.0) g/dL Hct (37.0-47.0) % MCV (81.0-99.0) fL MCH (27.0-31.0) pg MCHC (32.0-36.0) g/dL RDW (12.0-15.0) % Plt Count (130-450) 10^3/uL MPV (7.9-10.8) fL Neut # (Auto) (1.5-6.6) 10^3/uL Lymph # (Auto) (1.5-3.5) 10^3/uL [place] # (Auto) (0.0-1.0) 10^3/uL Eos # (Auto) (0.0-0.7) 10^3/uL Baso # (Auto) (0.0-0.1) 10^3/uL Absolute Nucleated RBC x10^3/uL Nucleated RBC % /100WBC Sodium (135-145) mmol/L Potassium (3.5-5.0) mmol/L Chloride (101-111) mmol/L Carbon Dioxide (21-32) mmol/L Anion Gap (6-13) BUN (6-20) mg/dL Creatinine (0.4-1.0) mg/dL Estimated GFR (MDRD) (>89) Glucose (70-100) mg/dL Calcium (8.5-10.3) mg/dL Total Bilirubin (0.2-1.0) mg/dL AST (10-42) IU/L ALT (10-60) IU/L Alkaline Phosphatase (42-121) IU/L Total Protein (6.7-8.2) g/dL Albumin (3.2-5.5) g/dL Globulin (2.1-4.2) g/dL Albumin/Globulin Ratio (1.0-2.2) Urine Color Urine Clarity (CLEAR) Urine pH (5.0-7.5) PH Ur Specific [place] (1.002-1.030) Urine Protein (NEGATIVE) mg/dL Urine Glucose (UA) (NEGATIVE) mg/dL Urine Ketones (NEGATIVE) mg/dL Urine Occult Blood (NEGATIVE) Urine Nitrite (NEGATIVE) Urine Bilirubin (NEGATIVE) Urine Urobilinogen (NORMAL) E.U./dL Ur Leukocyte Esterase (NEGATIVE) Urine RBC (0-5) /HPF Urine WBC (0-5) /HPF Ur Epithelial Cells (<= Few) /HPF Ur Squamous Epith Cells (<= Few) Urine Bacteria (None Seen) /HPF Urine Creatinine mg/dL Ur Total Protein Timed mg/dL Protein/Creatinin Ratio (<=0.2) Membranes Rupture (NEGATIVE) Urine Opiates Screen (NEGATIVE) Ur Oxycodone Screen (NEGATIVE) Urine Methadone Screen (NEGATIVE) Ur Propoxyphene Screen (NEGATIVE) Ur Barbiturates Screen (NEGATIVE) Ur Tricyclics Screen (NEGATIVE) Ur Phencyclidine Scrn (NEGATIVE) Ur Amphetamine Screen (NEGATIVE) U Methamphetamines Scrn (NEGATIVE) U Benzodiazepines Scrn (NEGATIVE) Urine Cocaine Screen (NEGATIVE) U Cannabinoids Screen (NEGATIVE) C. glabrata (PCR) (NEGATIVE) C. krusei (PCR) (NEGATIVE) Kasandra species DNA (NEGATIVE) Chlam trachomat DNA PCR (NEGATIVE) HIV 1&2 Antibody Rapid (NEGATIVE) N.gonorrhoeae DNA (PCR) (NEGATIVE) Rubella IgG Antibody IU/mL T. vaginalis (PCR) (NEGATIVE) Bact Vaginosis (PCR) (NEGATIVE) Blood Type O NEGATIVE Antibody Screen NEGATIVE
[2021-08-20] MEDS ORDERED: BETAMETHASONE 30 MG/5 ML VIAL IM ONE (10:02)
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
[2021-08-20] MEDS ORDERED: hydrOXYzine 50 MG/ML VIAL IM ONE ×2 (11:13→11:15)
[2021-08-20 11:48] VITALS: BP 119/80
[2021-08-26 13:30] LABS: RPR Non Reactive
[2021-08-26 13:53] LABS: HBsAG SCREEN Negative; HEPATITIS B CORE IGM AB Negative
[2021-08-26 13:54] LABS: HCV AB <0.1
== END 2021-08-20 11:25 | disposition short-term general hospital (02) ==
LOC: WFO 01:03 → FBP 01:05 → WFO 08:58 → FBP 08:59
PROVIDERS: ADMIT Obstetrics & Gynecology; ATTEND Obstetrics & Gynecology
DX: O99.891 Other specified diseases and conditions complicating pregnancy (principal); O23.593 Infection of other part of genital tract in pregnancy, third trimester; B96.89 Other specified bacterial agents as the cause of diseases classified elsewhere; Z3A.36 36 weeks gestation of pregnancy; O14.13 Severe pre-eclampsia, third trimester; O99.323 Drug use complicating pregnancy, third trimester; O99.513 Diseases of the respiratory system complicating pregnancy, third trimester; J45.909 Unspecified asthma, uncomplicated; O99.013 Anemia complicating pregnancy, third trimester; O99.113 Other diseases of the blood and blood-forming organs and certain disorders involving the immune mechanism complicating pregnancy, third trimester; D66 Hereditary factor VIII deficiency; F15.90 Other stimulant use, unspecified, uncomplicated; O99.343 Other mental disorders complicating pregnancy, third trimester; F31.9 Bipolar disorder, unspecified; O32.1XX0 Maternal care for breech presentation, not applicable or unspecified; F41.9 Anxiety disorder, unspecified; Z98.891 History of uterine scar from previous surgery; O09.33 Supervision of pregnancy with insufficient antenatal care, third trimester; O36.0930 Maternal care for other rhesus isoimmunization, third trimester, not applicable or unspecified; O99.353 Diseases of the nervous system complicating pregnancy, third trimester; G40.909 Epilepsy, unspecified, not intractable, without status epilepticus
CPT/HCPCS: 36415; 80053; 80306; 81001; 81514; 82570; 84112; 84156; 85025; 86592; 86703; 86705; 86709; 86762; 86803; 86850; 86900; 86901; 87081; 87210; 87340; 87491; 87591; 87635; 87797; 96372; 99215; G0378; J7120; 87661; J3475

== ENCOUNTER 2022-05-19 01:01 | Outpatient (CLI) | payer MEDICAID | END 2022-05-19 01:02 | disposition critical access hospital (66) | LOC: EMS 01:01 | DX: Z04.1 Encounter for examination and observation following transport accident (principal); M54.50 Low back pain, unspecified; M54.2 Cervicalgia | CPT/HCPCS: A0425; A0429; A0999 ==

== ENCOUNTER 2022-05-19 01:09 | Emergency (ER) | payer MEDICAID ==
[2022-05-19 01:55] LABS: BASOPHILS # (AUTO) 0.1 10^3/uL (0.0-0.1); BASOPHILS % (AUTO) 0.6 %; EOSINOPHILS # (AUTO) 0.1 10^3/uL (0.0-0.7); EOSINOPHILS % (AUTO) 0.8 %; HCT - HEMATOCRIT 39.2 % (37.0-47.0); LYMPHOCYTES # (AUTO) 2.7 10^3/uL (1.5-3.5); LYMPHOCYTES % (AUTO) 34.5 %; MEAN CORPUSCULAR HGB CONC 30.6 g/dL (32.0-36.0); MEAN CORPUSCULAR VOLUME 81.7 fL (81.0-99.0); MEAN PLATELET VOLUME 8.3 fL (7.9-10.8); MONOCYTES # (AUTO) 0.5 10^3/uL (0.0-1.0); MONOCYTES % (AUTO) 5.8 %; NEUTROPHILS # (AUTO) 4.4 10^3/uL (1.5-6.6); NEUTROPHILS % (AUTO) 57.7 %; PLT - PLATELET COUNT 324 10^3/uL (130-450); RED CELL DISTRIBUTION WIDTH 15.7 % (12.0-15.0); WHITE BLOOD COUNT 7.7 x10^3/uL (4.8-10.8)
[2022-05-19] MEDS ORDERED: ACETAMINOPHEN 325 MG TABLET PO STA (01:58)
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
[2022-05-19 02:06] LABS: ALBUMIN 4.1 g/dL (3.2-5.5); ALBUMIN/GLOBULIN RATIO 1.2 (1.0-2.2); ALKALINE PHOSPHATASE 52 IU/L (42-121); ALT ALANINE AMINOTRANSFERASE 25 IU/L (10-60); AST ASPARTATE AMINOTRANSFERASE 23 IU/L (10-42); BILIRUBIN,TOTAL 0.4 mg/dL (0.2-1.0); BUN - BLOOD UREA NITROGEN 14 mg/dL (6-20); CALCIUM 9.2 mg/dL (8.5-10.3); CARBON DIOXIDE - CO2 25 mmol/L (21-32); CHLORIDE 101 mmol/L (101-111); CREATININE 0.7 mg/dL (0.4-1.0); ETOH - ETHANOL < 5.0 mg/dL; GFR - MDRD 96 (>89); GLUCOSE 81 mg/dL (70-100); LIPASE 46 U/L (22-51); POTASSIUM 4.1 mmol/L (3.5-5.0); SODIUM 138 mmol/L (135-145); TOTAL PROTEIN 7.6 g/dL (6.7-8.2)
[2022-05-19] MEDS ORDERED: iohexoL-300 100 ML VIAL IVP ONE (02:39)
[2022-05-19] MEDS ORDERED: iohexoL-300 100 ML VIAL ONE (02:40)
[2022-05-19] MEDS ORDERED: SODIUM CHLORIDE 0.9% 1,000 ML IV STA (02:54)
[2022-05-19] MEDS ORDERED: oxyCODONE/ACET 5/325 Prepack 4 PO STA (06:14)
[2022-05-19 07:12] VITALS: BP 110/62
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
--- NOTE | 2022-05-19 09:01 | CT Report ---
PROCEDURE: ABDOMEN/PELVIS W INDICATIONS: trauma CONTRAST: Omni 300 100ml TECHNIQUE: After the administration of IV contrast, 5 mm thick sections acquired from the diaphragms to the symp hysis. 5 mm thick coronal and sagittal reformats were acquired. For radiation dose reduction, the f ollowing was used: automated exposure control, adjustment of mA and/or kV according to patient size. COMPARISON: 10/14/2018. FINDINGS: Image quality: Excellent. ABDOMEN: Lung bases: Lung bases are clear. Heart size is normal. Solid organs: Liver and spleen are normal in size and enhancement. Gallbladder is contracted and sh ows no gross abnormality Biliary system is non dilated. Pancreas enhances normally. No adrenal nod ules. Kidneys demonstrate normal size and enhancement, without hydronephrosis. Peritoneum and bowel: Bowel loops demonstrate normal wall thickness and caliber. No free fluid or a ir. Mild fecal stasis in the colon is seen. Nodes and vessels: No retroperitoneal or mesenteric adenopathy by size criteria. Aorta and inferior vena cava are normal in size. Miscellaneous: No ventral hernias. PELVIS: Genitourinary: Bladder wall thickness is normal. Miscellaneous: No inguinal hernias or adenopathy. Bones: No suspicious bony lesions. Acute appearing superior endplate compression deformity at T12 le nicki is seen. No acute compression fracture is noted in rest of the thoracic and lumbar spine. IMPRESSION: 1. No acute solid organ injury within abdomen or pelvis. No free fluid of free air. 2. Acute appearing anterior wedge compression deformity at T12 level with up to 20% loss of T12 verte bral body height anteriorly. No other fracture or dislocation is seen. No suspicious bony lesions. No discrepancies from preliminary readings. Reviewed by: Dilip Toth MD on 05/19/2022 9:00 AM PST Approved by: Dilip Toth MD on 05/19/2022 9:00 AM PST Station ID: [id number]
--- NOTE | 2022-05-19 11:47 | CT Report ---
PROCEDURE: HEAD WO INDICATIONS: Head trauma, mod-severe TECHNIQUE: Noncontrast 4.5 mm thick angled axial sections acquired from the foramen magnum to the vertex. For r adiation dose reduction, the following was used: automated exposure control, adjustment of mA and/or kV according to patient size. COMPARISON: None. FINDINGS: Image quality: Excellent. CSF spaces: Basal cisterns are patent. No extra-axial fluid collections. Ventricles are normal in size and shape. Brain: No midline shift. No intracranial masses or hemorrhage. Petit-white matter interface is norm al. Skull and face: Calvarium and visualized facial bones are intact, without suspicious lesions. Sinuses: Visualized sinuses and mastoids are clear. IMPRESSION: 1. No acute intracranial process. The above findings are concordant with preliminary report. Reviewed by: Anju Sierra MD on 05/19/2022 11:45 AM [facility] Approved by: Anju Sierra MD on 05/19/2022 11:45 AM [facility] Station ID: [id number]
--- NOTE | 2022-05-19 11:48 | CT Report ---
PROCEDURE: CERVICAL SPINE WO INDICATIONS: trauma TECHNIQUE: Noncontrast 3 mm thick sections acquired from the skull base to the T4 level. Sagittal and coronal r eformats were then constructed. For radiation dose reduction, the following was used: automated exp osure control, adjustment of mA and/or kV according to patient size. COMPARISON: None. FINDINGS: Image quality: Excellent. Bones: No fractures or dislocations. Visualized superior ribs are intact. Soft tissues: Prevertebral soft tissues are normal in thickness. No paravertebral hematomas. No ap ical pneumothoraces. Mild appearance of debris within the right trachea. IMPRESSION: No visualized fracture. The above findings are concordant with preliminary report. Reviewed by: Anju Sierra MD on 05/19/2022 11:46 AM [facility] Approved by: Anju Sierra MD on 05/19/2022 11:46 AM [facility] Station ID: [id number]
== END 2022-05-19 07:10 | disposition home or self-care (01) ==
LOC: EDUNIT# → ED 01:09
DX: S22.080A Wedge compression fracture of T11-T12 vertebra, initial encounter for closed fracture (principal); V49.9XXA Car occupant (driver) (passenger) injured in unspecified traffic accident, initial encounter; Y93.89 Activity, other specified; Y92.007 Garden or yard of unspecified non-institutional (private) residence as the place of occurrence of the external cause; F17.200 Nicotine dependence, unspecified, uncomplicated
CPT/HCPCS: 36415; 70450; 71260; 72125; 74177; 80053; 80320; 83690; 85025; 99284; A9270; Q9967